=== PATIENT | female | born 2000 | race Caucasian/White ===

== ENCOUNTER 2023-09-10 10:20 | Emergency (ER) | payer BC, SELFPAY ==
[2023-09-10 10:55] VITALS: BP 107/69
[2023-09-10] MEDS: TYLENOL 1000 MG PO (13:11)
--- NOTE | 2023-09-10 14:07 | ED.GENMED ---
History of Present Illness
General
Chief Complaint: Headache
Source: patient and family
Exam Limitations: none
Time Seen by Provider: 09/10/23 12:27
Nursing documentation reviewed up to this point in time: agreed with
Travel History
Have you had any contact with someone who has COVID-19?: No
Do you have any symptoms of coronavirus? Fever > 100 degrees, chills, cough, shortness of breath, sore throat, loss of taste or smell, muscle aches, or headache?: No
History of Present Illness
History of Present Illness:
The patient is a pleasant 23-year-old female with past medical history of POTS syndrome and intermittent chronic dizziness, who comes in with complaints of gradual onset of a headache that started 2 days ago. Patient reports that the headache
starts at the base of the right side of her head and radiates towards her right forehead. She denies fever and vomiting. She reports is a throbbing sensation and a moderate pressure. Patient reports that she was primarily concerned and wants to
make sure everything is okay because she reports she has had 'strange issues' happen to her such as a history of a blood clot. Patient reports she takes Lovenox. She denies vision changes, weakness and numbness. She denies rash. Patient reports
she took Tylenol earlier today and her headache is now improved.
Past History
Past History
ED Past Medical History: Psychiatric (Anxiety, Depression) and Other ( IBS, ovarian cyst, colitis, DVT, C-diff, PCOS, POTS, PE, Migraines, )
ED Past Surgical History: Gynecological (Hyemectomy) and Orthopedic (Left knee meniscus and MPFO)
Social History
Tobacco: Non-smoker
Alcohol: None
Drug: None
Personal: Other
Living: with roommate
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
Family History
Family History: Other
Review of Systems
Review of Systems
Allergies reviewed?: Yes
All Other Systems: ROS reviewed and negative except as documented in HPI and ROS
Constitutional: Reports no symptoms
EENT: Reports no symptoms
Respiratory: Reports no symptoms
Cardiac: Reports no symptoms
ABD/GI: Reports no symptoms
: Reports no symptoms
Musculoskeletal: Reports no symptoms
Skin: Reports no symptoms
Neurological: Reports dizzy and headache
Endocrine: Reports no symptoms
Hematologic/Lymphatic: Reports no symptoms
Psychiatric: Reports no symptoms
Phy Exam
Physical Exam
Physical Exam:
Physical Exam
General: no apparent distress, not acutely ill
Neck: supple. no meningeal signs. normal psoterior pharynx
Heart: s1/s2 regular rate and rhythm, no murmur. equal radial pulses.
Lungs: no acute respiratory distress. clear bilaterally
Abdomen: normal bowel sounds. not tender. no CVAT
Neuro: alert and orientedx3. no focal neurological deficits. Extraocular muscles intact. Normal finger-nose. 5 out of 5 strength in all extremities. Cranial nerves equal and symmetric bilaterally.
Skin: no rash
Psychiatric: well kept. interactive and cooperative
Extremities: no edema. no calf tenderness. negative homans. good distal pulses
Course
Orders/Labs/Results
Orders:
Orders
09/10/23 13:06
CT Head W/o Iv Contrast Urgent
Comment:
Reason For Exam: headache, dizziness
09/10/23 13:07
Acetaminophen [Tylenol] 1,000 mg PO NOW STA
Vital Signs
Initial and Last Documented VS:
Initial Vital Signs
Temp Pulse Resp BP Pulse Ox
98.1 F 79 18 107/69 99
09/10/23 10:55 09/10/23 10:55 09/10/23 10:55 09/10/23 10:55 09/10/23 10:55
Last Documented Vital Signs
Temp Pulse Resp BP Pulse Ox
98.1 F 79 18 107/69 99
09/10/23 10:55 09/10/23 10:55 09/10/23 10:55 09/10/23 10:55 09/10/23 10:55
MDM/Problems Addressed
Differential Diagnosis Includes:
Acute migraine, tension headache, acute sinusitis, subarachnoid hemorrhage
MDM/Problems Addressed:
Patient presents with acute headache
Chronic conditions affecting care:
Given patient has a history of being on blood thinners, she could be at increased risk of intracranial hemorrhage
Acute Exacerbation and/or Progression of Chronic Illness:
Patient may have acute exacerbation of a chronic migraine
*Radiology
Radiology exam reviewed: radiology read reviewed
*Pulse Oximetry
Patient hypoxic: no
*EKG
Interpreted by ED Provider?: NA
*Lot Associate Interpretation
Rate: Lot Associate- N/A
*Critical Care Note
Total Time (30-74mins, 75-104mins- exclusive of procedures): Not Applicable
Data Reviewed
Source: patient and family
Prescriptions/Medications Considered But Not Given:
Patient given Tylenol for pain
Update Note
Update Note:
2:30 PM patient reports she feels better with the Tylenol. She reports her headache is minimal. She appears nontoxic, is smiling and conversational. Clinically there is no sign of meningitis or subarachnoid hemorrhage. Decision made to do a CAT
scan based on the fact that patient is on blood thinners and she was particularly concerned. However, she does admit that she has chronic intermittent dizziness and headaches.
ED Attending Note
-
Portions of this chart may have been created with voice recognition software.� Occasional wrong word or��sound alike� substitutions may have occurred due to the inherent limitations of voice recognition software.
Discharge Plan
Departure
Patient Disposition: Home (Routine Discharge)
Date of Disposition: 09/10/23
Time of Disposition: 14:29
Patient with high blood pressure during this ER visit?: No
Condition: Good
Covid-19: Not Applicable
Discharge Problem:
Headache
Instructions: Headache, Adult (DC)
Prescriptions:
No Action
ondansetron HCl 4 mg Tablet
4 mg PO Q6H PRN (Reason: nausea)
metoprolol succinate 25 mg Tablet Extended Release 24 Hr
25 mg PO DAILY
sertraline [Zoloft] 50 mg Tablet
50 mg PO DAILY
acetaminophen 325 mg Tablet
650 mg PO Q4HPRN PRN (Reason: mild pain/SUN/temp> 100.4F) Qty: 0 0RF
enoxaparin [Lovenox] 80 mg/0.8 mL Syringe
80 mg SC Q12H
metoprolol succinate 50 mg tablet extended release 24 hr
50 mg PO DAILY 14 Days Qty: 14 0RF
Referrals:
Dinah Wolf CRNP [Family Provider] -
Activity Restrictions/Additional Instructions:
Please follow-up with your neurologist at [place].
Interventions
Interventions:
*General Assessment Last Done: 09/10/23 10:55
*ED COVID-19 Vaccine History Last Done: 09/10/23 10:55
ED- Neurological Assessment Last Done: 09/10/23 14:08
== END 2023-09-10 14:49 | disposition home or self-care (01) ==
LOC: EMR 10:20
PROVIDERS: EMERGENCY PHYSICIAN Emergency Medicine; FAMILY PHYSICIAN Nurse Practitioner
DX: R51.9 Headache, unspecified (principal); G90.A Postural orthostatic tachycardia syndrome [POTS]; F41.9 Anxiety disorder, unspecified; F32.A Depression, unspecified; K58.9 Irritable bowel syndrome, unspecified; E28.2 Polycystic ovarian syndrome; Z79.01 Long term (current) use of anticoagulants; Z86.718 Personal history of other venous thrombosis and embolism
CPT/HCPCS: 99284; 70450

== ENCOUNTER → 2023-11-07 10:36 | Outpatient (REF) | payer BC, SELFPAY ==
[2023-11-07 11:36] LABS: % Basophils 0.5 % (0-2); % Eosinophils 0.3 % (0-6); % Immature Granulocytes 0.7 % (0-0.5); % Lymphocytes 37.9 % (20.5-51.1); % Monocytes 5.4 % (1.7-9.3); % Neutrophils 55.2 % (42.2-75.2); Absolute Basophils 0.1 10^3/uL (0-0.2); Absolute Immature Granulocytes 0.1 10^3/uL (0-0.05); Absolute Lymphocytes 3.5 10^3/uL (1.2-3.4); Absolute Monocytes 0.5 10^3/uL (0.1-0.6); Absolute Neutrophils 5.1 10^3/uL (1.4-6.5); Hematocrit 40.7 % (37.0-47.0); Hemoglobin 13.5 g/dL (12.0-16.0); Mean Corp Hgb Conc. 33.2 g/dL (33.0-37.0); Mean Corpuscular Hgb 29.5 pg (27.0-31.0); Mean Corpuscular Volume 88.9 fL (81.0-99.0); Mean Platelet Volume 9.5 fL (7.4-10.4); Nucleated Red Blood Cells % 0 %; Platelet Count 350 10^3/uL (130-400); Red Blood Cell Count 4.58 10^6/uL (4.20-5.40); Red Cell Dist. Width 12.8 % (11.5-14.5); White Blood Cell Count 9.2 10^3/uL (4.8-10.8)
[2023-11-07 11:50] LABS: D-Dimer 0.32 ug/mlFEU (0.00-0.50)
[2023-11-07 12:07] LABS: Troponin I < 0.012 ng/ml
[2023-11-07 12:58] LABS: Ferritin 39.2 ng/ml (6.24-137)
[2023-11-07 13:41] LABS: Iron 82 ug/dl (37-170)
[2023-11-07 13:51] LABS: Percent Saturation 21 % (20-50); Total Iron Binding Capacity 378 ug/dl (265-497)
== END ==
LOC: RCS 10:36
PROVIDERS: ATTENDING PHYSICIAN Internal Medicine Hematology & Oncology; FAMILY PHYSICIAN Family Medicine
DX: I82.4Z2 Acute embolism and thrombosis of unspecified deep veins of left distal lower extremity (principal)
CPT/HCPCS: 36415; 82728; 83540; 83550; 84484; 85025; 85379; 93005

== ENCOUNTER → 2023-11-14 10:57 | Outpatient (REF) | payer BC, SELFPAY | LOC: HWRAD 10:57 | PROVIDERS: ATTENDING PHYSICIAN Nurse Practitioner | DX: R19.00 Intra-abdominal and pelvic swelling, mass and lump, unspecified site (principal) | CPT/HCPCS: 76830; 76856 ==

== ENCOUNTER 2023-11-21 11:20 | Emergency (ER) | payer BC, SELFPAY ==
[2023-11-21 11:29] VITALS: BP 133/81
[2023-11-21 12:21] VITALS: BMI 28.1
[2023-11-21 12:35] VITALS: BP 121/74
[2023-11-21 12:56] LABS: % Basophils 0.4 % (0-2); % Eosinophils 0.1 % (0-6); % Immature Granulocytes 0.5 % (0-0.5); % Lymphocytes 17.8 % (20.5-51.1); % Monocytes 4.5 % (1.7-9.3); % Neutrophils 76.7 % (42.2-75.2); Absolute Immature Granulocytes 0.1 10^3/uL (0-0.05); Absolute Lymphocytes 1.7 10^3/uL (1.2-3.4); Absolute Monocytes 0.4 10^3/uL (0.1-0.6); Absolute Neutrophils 7.1 10^3/uL (1.4-6.5); Hemoglobin 13.7 g/dL (12.0-16.0); Mean Corp Hgb Conc. 33.4 g/dL (33.0-37.0); Mean Corpuscular Hgb 29.8 pg (27.0-31.0); Mean Corpuscular Volume 89.3 fL (81.0-99.0); Mean Platelet Volume 9.6 fL (7.4-10.4); Nucleated Red Blood Cells % 0 %; Platelet Count 363 10^3/uL (130-400); Red Blood Cell Count 4.59 10^6/uL (4.20-5.40); Red Cell Dist. Width 12.8 % (11.5-14.5); White Blood Cell Count 9.3 10^3/uL (4.8-10.8)
[2023-11-21 13:00] VITALS: BP 115/65
[2023-11-21 13:11] LABS: ALT (SGPT) 32 U/L (0-35); AST (SGOT) 22 U/L (14-36); Albumin 4.7 g/dl (3.5-5.0); Alkaline Phosphatase 64 U/L (38-126); Blood Urea Nitrogen 11 mg/dl (7-17); Calcium 9.8 mg/dl (8.4-10.2); Carbon Dioxide 23 mmol/L (22-30); Chloride 106 mmol/L (98-107); Estimated Creatinine Clearance > 125 ml/min; Glucose 92 mg/dl (70-99); Potassium 4.2 mmol/L (3.5-5.1); Sodium 136 mmol/L (135-145); Total Bilirubin 0.4 mg/dl (0.2-1.3); eGFR > 60.00
[2023-11-21] MEDS: NSS 1000 IV (13:23)
[2023-11-21 13:56] LABS: HCG, Serum Qualitative Screen Negative
[2023-11-21 14:00] VITALS: BP 117/67
[2023-11-21 14:03] LABS: Magnesium 1.8 mg/dl (1.6-2.3)
[2023-11-21 14:33] LABS: TSH Reflex To Free T4 1.25 uIU/ml (0.47-4.68)
[2023-11-21 15:00] VITALS: BP 111/70
--- NOTE | 2023-11-21 15:54 | ED.GENMED ---
History of Present Illness
General
Chief Complaint: Dizziness
Source: patient
Exam Limitations: none
Time Seen by Provider: 11/21/23 12:18
Nursing documentation reviewed up to this point in time: agreed with
Travel History
Have you had any contact with someone who has COVID-19?: No
Do you have any symptoms of coronavirus? Fever > 100 degrees, chills, cough, shortness of breath, sore throat, loss of taste or smell, muscle aches, or headache?: No
History of Present Illness
History of Present Illness:
Patient presents to ED for evaluation secondary to continual dizziness, feeling 'not well', nausea, and decreased appetite over the past 3 days. Of note, patient is currently being treated for pulmonary embolism discovered in May 2023. Patient
has been Lovenox injection at home, but during evaluation with her bistro attendant last week, decision was made to switch patient to Eliquis. Patient states that 1 day after, after taking 2 doses, patient started to feel aforementioned symptoms. In
addition, her multinational cycle started also on the same day. Denies fever or chills. Denies coughing. Denies chest pain. Denies shortness of breath. Denies abdominal pain. Denies diarrhea. Patient does also report that she had taken
Eliquis in the past, and experienced similar but milder symptoms at that time.
Past History
Past History
ED Past Medical History: Psychiatric (Anxiety, Depression) and Other ( IBS, ovarian cyst, colitis, DVT, C-diff, PCOS, POTS, PE, Migraines, )
ED Past Surgical History: Gynecological (Hyemectomy) and Orthopedic (Left knee meniscus and MPFO)
Social History
Tobacco: Non-smoker
Alcohol: None
Drug: None
Personal: Other
Living: with roommate
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
Family History
Family History: Other
Review of Systems
Review of Systems
Allergies reviewed?: Yes
All Other Systems: ROS reviewed and negative except as documented in HPI and ROS
Constitutional: Reports no symptoms
EENT: Reports no symptoms
Respiratory: Reports no symptoms
Cardiac: Reports no symptoms
ABD/GI: Reports nausea and vomiting
: Reports no symptoms
Musculoskeletal: Reports no symptoms
Skin: Reports no symptoms
Neurological: Reports dizzy and weakness
Phy Exam
Physical Exam
Physical Exam:
Physical Exam
General: mild distress, not acutely ill. afebrile.
Head: nc/at. eomi
Neck: supple. no meningeal signs.
Heart: s1/s2 regular rate and rhythm, no murmur. equal radial pulses.
Lungs: no acute respiratory distress. clear bilaterally
Abdomen: normal bowel sounds. not tender.
Neuro: alert and oriented. no focal neurological deficits
Skin: no rash
Psychiatric: well kept. interactive and cooperative
Extremities: no edema. no calf tenderness.
Course
Orders/Labs/Results
Orders:
Orders
11/21/23 11:22
EKG [Electrocardiogram (*1)] Urgent
Reason for Study: Chest Pain
EKG- Treatment ONCE
11/21/23 12:48
Complete Blood Count/With Diff Urgent
Comprehensive Metabolic Panel Urgent
HCG, Serum Qualitative Screen Urgent
Comment: ADD ON
Iron Urgent
Magnesium Urgent
Comment: ADD ON
TSH Reflex To Free T4 Urgent
Comment: DDED ON
11/21/23 13:18
Add On- LAB Urgent
Tests Added?: magnesium, serum b-hcg qualitative, TSH to reflex free T4
11/21/23 13:19
0.9% Sodium Chloride 1000 ml [Nss] 1,000 ml IV BOLUS
11/21/23 15:40
Add On- LAB Urgent
Tests Added?: iron
Abnormal Lab Results
11/21/23
12:48
Abs Immat Gran (auto) 0.1 H 10^3/uL
(0-0.05)
Absolute Neuts (auto) 7.1 H 10^3/uL
(1.4-6.5)
Neutrophils % 76.7 H %
(42.2-75.2)
Lymphocytes % 17.8 L %
(20.5-51.1)
11/21/23 12:48
11/21/23 12:48
Vital Signs
Initial and Last Documented VS:
Initial Vital Signs
Temp Pulse Resp BP Pulse Ox
98.9 F 83 16 133/81 100
11/21/23 11:29 11/21/23 11:29 11/21/23 11:29 11/21/23 11:29 11/21/23 11:29
Last Documented Vital Signs
Temp Pulse Resp BP Pulse Ox
98.9 F 76 17 114/64 100
11/21/23 11:29 11/21/23 16:00 11/21/23 16:00 11/21/23 16:00 11/21/23 11:29
MDM/Problems Addressed
MDM/Problems Addressed:
Blood work reviewed: No acute findings.
History and exam consistent with likely medication reaction, compounded by ongoing menstrual cycle as well as dehydration. Otherwise, patient is afebrile, hemodynamically stable, and nontoxic-appearing.
Discussed with on-call bistro attendant, Dr. Chen. Decision made to switch patient back to Lovenox injection. Pt is to call hematology office with an update in 2-3 days.
Patient and mother expressed understanding at time of discharge.
*Critical Care Note
Total Time (30-74mins, 75-104mins- exclusive of procedures): Not Applicable
ED Attending Note
-
Portions of this chart may have been created with voice recognition software.� Occasional wrong word or��sound alike� substitutions may have occurred due to the inherent limitations of voice recognition software.
Discharge Plan
Departure
Patient Disposition: Home (Routine Discharge)
Date of Disposition: 11/21/23
Time of Disposition: 15:55
Patient with high blood pressure during this ER visit?: Yes
Condition: Good
Discharge Problem:
Dizziness, Medication adverse effect
Instructions: Dizziness
Prescriptions:
New
ondansetron 4 mg Tablet,Disintegrating
4 mg PO TIDPRN PRN (Reason: nausea/vomiting) Qty: 12 0RF
No Action
ondansetron HCl 4 mg Tablet
4 mg PO Q6H PRN (Reason: nausea)
metoprolol succinate 25 mg Tablet Extended Release 24 Hr
25 mg PO DAILY
sertraline [Zoloft] 50 mg Tablet
50 mg PO DAILY
acetaminophen 325 mg Tablet
650 mg PO Q4HPRN PRN (Reason: mild pain/SUN/temp> 100.4F) Qty: 0 0RF
enoxaparin [Lovenox] 80 mg/0.8 mL Syringe
80 mg SC Q12H
metoprolol succinate 50 mg tablet extended release 24 hr
50 mg PO DAILY 14 Days Qty: 14 0RF
Referrals:
Jennifer Jackson MD [Family Provider] -
Stand Alone Forms: Return to Work
Activity Restrictions/Additional Instructions:
As discussed, please discontinue Eliquis and restart Lovenox injection at home. Please contact your bistro attendant in 24 to 48 hours with your progress. Your prescriptions been sent electronically [facility] pharmacy in [place].
Interventions
Interventions:
*Risk Screen - Suicide Last Done: 11/21/23 11:29
*General Assessment Last Done: 11/21/23 12:21
*Neglect/Abuse Screening Last Done: 11/21/23 11:29
ED- Fall Risk Assessment Last Done: 11/21/23 12:21
*ED COVID-19 Vaccine History Last Done: 11/21/23 11:29
*Nursing Disposition Last Done: 11/21/23 16:09
ED- Neurological Assessment Last Done: 11/21/23 12:21
ED- Cardiac Assessment Last Done: 11/21/23 12:21
ED Swallowing Screen Last Done: 11/21/23 12:31
Discharge Date and Time
Discharge Date/Time: 11/21/23 16:22
Print Language: MACANESE
[2023-11-21 16:00] VITALS: BP 114/64
[2023-11-21 17:39] LABS: Iron 83 ug/dl (37-170)
== END 2023-11-21 16:22 | disposition home or self-care (01) ==
LOC: EMR 11:20
PROVIDERS: EMERGENCY PHYSICIAN Emergency Medicine; FAMILY PHYSICIAN Family Medicine
DX: R42 Dizziness and giddiness (principal); R11.2 Nausea with vomiting, unspecified; R00.2 Palpitations; T45.515A Adverse effect of anticoagulants, initial encounter; F41.9 Anxiety disorder, unspecified; F32.A Depression, unspecified; K58.9 Irritable bowel syndrome, unspecified; G90.A Postural orthostatic tachycardia syndrome [POTS]; K52.9 Noninfective gastroenteritis and colitis, unspecified; N83.209 Unspecified ovarian cyst, unspecified side; Z86.711 Personal history of pulmonary embolism
CPT/HCPCS: 99284; 96360; 80053; 83540; 83735; 84443; 84703; 85025; 93005

== ENCOUNTER → 2023-11-29 13:05 | Outpatient (REF) | payer BC, SELFPAY ==
[2023-11-29 14:43] LABS: Urine Albumin Negative (Neg - Trace); Urine Bilirubin Negative (Negative); Urine Character Clear (Clear); Urine Color Straw; Urine Glucose Negative (Negative); Urine Ketone Negative (Negative); Urine Leukocyte Negative (Negative); Urine Nitrite Negative (Negative); Urine Occult Blood Negative (Negative); Urine Urobilinogen Negative (Neg - 1+)
== END ==
LOC: RAD 13:05
PROVIDERS: ATTENDING PHYSICIAN Family Medicine
DX: R10.2 Pelvic and perineal pain (principal)
CPT/HCPCS: 76700; 76830; 76856; 81003

== ENCOUNTER 2023-12-11 13:53 | Emergency (ER) | payer BC, SELFPAY ==
[2023-12-11 13:55] VITALS: BP 146/99
[2023-12-11 14:15] LABS: % Basophils 0.3 % (0-2); % Eosinophils 0.7 % (0-6); % Immature Granulocytes 0.7 % (0-0.5); % Lymphocytes 47.4 % (20.5-51.1); % Neutrophils 39.9 % (42.2-75.2); Absolute Lymphocytes 2.8 10^3/uL (1.2-3.4); Absolute Monocytes 0.7 10^3/uL (0.1-0.6); Absolute Neutrophils 2.4 10^3/uL (1.4-6.5); Hematocrit 38.5 % (37.0-47.0); Hemoglobin 13.3 g/dL (12.0-16.0); Mean Corp Hgb Conc. 34.5 g/dL (33.0-37.0); Mean Corpuscular Hgb 30.1 pg (27.0-31.0); Mean Corpuscular Volume 87.1 fL (81.0-99.0); Mean Platelet Volume 9.2 fL (7.4-10.4); Nucleated Red Blood Cells % 0 %; Platelet Count 305 10^3/uL (130-400); Red Blood Cell Count 4.42 10^6/uL (4.20-5.40); Red Cell Dist. Width 12.8 % (11.5-14.5)
[2023-12-11 14:28] LABS: D-Dimer 0.36 ug/mlFEU (0.00-0.50)
[2023-12-11 14:36] LABS: HCG, Serum Qualitative Screen Negative
[2023-12-11 14:47] LABS: ALT (SGPT) 35 U/L (0-35); AST (SGOT) 25 U/L (14-36); Albumin 4.6 g/dl (3.5-5.0); Alkaline Phosphatase 64 U/L (38-126); Blood Urea Nitrogen 16 mg/dl (7-17); Calcium 9.7 mg/dl (8.4-10.2); Carbon Dioxide 26 mmol/L (22-30); Chloride 106 mmol/L (98-107); Glucose 88 mg/dl (70-99); Potassium 4.6 mmol/L (3.5-5.1); Sodium 137 mmol/L (135-145); Total Bilirubin 0.4 mg/dl (0.2-1.3); Total Protein 8.1 g/dl (6.3-8.2); eGFR > 60.00
[2023-12-11 16:43] VITALS: BP 122/73
--- NOTE | 2023-12-11 17:03 | ED.GENMED ---
History of Present Illness
General
Chief Complaint: Breathing Problem
Source: patient
Exam Limitations: none
Time Seen by Provider: 12/11/23 16:02
Nursing documentation reviewed up to this point in time: agreed with
Travel History
Have you had any contact with someone who has COVID-19?: No
Do you have any symptoms of coronavirus? Fever > 100 degrees, chills, cough, shortness of breath, sore throat, loss of taste or smell, muscle aches, or headache?: No
History of Present Illness
History of Present Illness:
Patient with history of pulm embolism, currently on lifelong treatment via Lovenox subcu injection, presents to ED secondary to recurrent left armpit pain x 2 days, moving across her chest, similar to when she was initially diagnosed with pulmonary
embolism. Of note, patient states that she missed 1 single dose of Lovenox injection, night prior to onset of her symptoms. Denies shortness of breath. Denies nausea vomiting. Denies dizziness. Denies diaphoresis. Patient has already resumed
her normal Lovenox injection. Denies leg pain or swelling. Denies back pain.
Past History
Past History
ED Past Medical History: Psychiatric (Anxiety, Depression) and Other ( IBS, ovarian cyst, colitis, DVT, C-diff, PCOS, POTS, PE, Migraines, )
ED Past Surgical History: Gynecological (Hyemectomy) and Orthopedic (Left knee meniscus and MPFO)
Social History
Tobacco: Non-smoker
Alcohol: None
Drug: None
Personal: Other
Living: with roommate
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
Family History
Family History: Other
Review of Systems
Review of Systems
Allergies reviewed?: Yes
All Other Systems: ROS reviewed and negative except as documented in HPI and ROS
Constitutional: Reports no symptoms
Respiratory: Reports no symptoms
Cardiac: Reports chest pain
ABD/GI: Reports no symptoms
: Reports no symptoms
Musculoskeletal: Reports other (arm pit pain)
Skin: Reports no symptoms
Neurological: Reports no symptoms
Phy Exam
Physical Exam
Physical Exam:
Physical Exam
General: no apparent distress, not acutely ill. afebrile
Head: nc/at. eomi
Neck: supple. no meningeal signs.
Heart: s1/s2 regular rate and rhythm, no murmur. equal radial pulses.
Lungs: no acute respiratory distress. clear bilaterally
Abdomen: normal bowel sounds. not tender.
Neuro: alert and oriented. no focal neurological deficits
Skin: no rash
Psychiatric: well kept. interactive and cooperative
Extremities: no edema. no calf tenderness.
Course
Orders/Labs/Results
Orders:
Orders
12/11/23 13:58
Electrocardiogram (*1) Urgent
Reason for Study: Shortness of Breath
12/11/23 14:00
EKG- Treatment ONCE
Test Result ONCE
12/11/23 14:10
Complete Blood Count/With Diff Urgent
Comprehensive Metabolic Panel Urgent
D-Dimer Urgent
HCG, Serum Qualitative Screen Urgent
Abnormal Lab Results
12/11/23
14:10
Absolute Monos (auto) 0.7 H 10^3/uL
(0.1-0.6)
Immature Gran % 0.7 H %
(0-0.5)
Neutrophils % 39.9 L %
(42.2-75.2)
Monocytes % 11.0 H %
(1.7-9.3)
12/11/23 14:10
12/11/23 14:10
Vital Signs
Initial and Last Documented VS:
Initial Vital Signs
Temp Pulse Resp BP Pulse Ox
98.4 F 87 18 146/99 100
12/11/23 13:55 12/11/23 13:55 12/11/23 13:55 12/11/23 13:55 12/11/23 13:55
Last Documented Vital Signs
Temp Pulse Resp BP Pulse Ox
98.4 F 84 18 122/73 99
12/11/23 13:55 12/11/23 16:43 12/11/23 16:43 12/11/23 16:43 12/11/23 16:43
MDM/Problems Addressed
MDM/Problems Addressed:
Blood work reviewed and discussed with patient, including D-dimer. Patient otherwise afebrile, hemodynamic stable, and without any respiratory distress, nor any acute distress. Patient with likely nonspecific pain, likely musculoskeletal, as
patient has only missed 1 dose and has already resumed her Lovenox injection. Discussed with patient regarding differential diagnosis, including potential although unlikely PE. However, in light of the fact the patient is hemodynamically stable
without any acute distress, and she is already taking Lovenox injection, patient does understand that there is no further studies warranted at this time. Advised PCP/hematology follow-up as an outpatient, if her symptoms persist. Patient expresses
understanding at time of discharge.
*Critical Care Note
Total Time (30-74mins, 75-104mins- exclusive of procedures): Not Applicable
ED Attending Note
-
Portions of this chart may have been created with voice recognition software.� Occasional wrong word or��sound alike� substitutions may have occurred due to the inherent limitations of voice recognition software.
Discharge Plan
Departure
Patient Disposition: Home (Routine Discharge)
Date of Disposition: 12/11/23
Time of Disposition: 17:03
Patient with high blood pressure during this ER visit?: Yes
Condition: Good
Discharge Problem:
Musculoskeletal pain
Instructions: Musculoskeletal Pain
Prescriptions:
No Action
ondansetron HCl 4 mg Tablet
4 mg PO Q6H PRN (Reason: nausea)
metoprolol succinate 25 mg Tablet Extended Release 24 Hr
25 mg PO DAILY
sertraline [Zoloft] 50 mg Tablet
50 mg PO DAILY
acetaminophen 325 mg Tablet
650 mg PO Q4HPRN PRN (Reason: mild pain/SUN/temp> 100.4F) Qty: 0 0RF
enoxaparin [Lovenox] 80 mg/0.8 mL Syringe
80 mg SC Q12H
metoprolol succinate 50 mg tablet extended release 24 hr
50 mg PO DAILY 14 Days Qty: 14 0RF
ondansetron 4 mg Tablet,Disintegrating
4 mg PO TIDPRN PRN (Reason: nausea/vomiting) Qty: 12 0RF
Referrals:
Kamala Berman CRNP [Family Provider] -
Stand Alone Forms: Return to Work
Activity Restrictions/Additional Instructions:
As discussed, please follow-up with your primary care physician with any further concerns.
Interventions
Interventions:
*Risk Screen - Suicide Last Done: 12/11/23 13:55
*General Assessment Last Done: 12/11/23 13:55
*Neglect/Abuse Screening Last Done: 12/11/23 13:55
ED- Fall Risk Assessment Last Done: 12/11/23 16:51
*ED COVID-19 Vaccine History Last Done: 12/11/23 16:51
*Nursing Disposition Last Done: 12/11/23 17:06
ED- Cardiac Assessment Last Done: 12/11/23 16:51
ED- Pulmonary Assessment Last Done: 12/11/23 16:51
Discharge Date and Time
Discharge Date/Time: 12/11/23 17:06
Print Language: [email or web address]
== END 2023-12-11 17:06 | disposition home or self-care (01) ==
LOC: EMR 13:53
PROVIDERS: Emergency Medicine; EMERGENCY PHYSICIAN Emergency Medicine; FAMILY PHYSICIAN Family Medicine
DX: M79.18 Myalgia, other site (principal); R03.0 Elevated blood-pressure reading, without diagnosis of hypertension; Z86.711 Personal history of pulmonary embolism
CPT/HCPCS: 99284; 80053; 84703; 85025; 85379; 93005

== ENCOUNTER 2023-12-22 22:23 | Emergency (ER) | payer BC, SELFPAY ==
[2023-12-22 22:35] VITALS: BP 129/82
[2023-12-22 22:54] LABS: % Basophils 0.3 % (0-2); % Eosinophils 1.1 % (0-6); % Immature Granulocytes 0.6 % (0-0.5); % Lymphocytes 54.2 % (20.5-51.1); % Monocytes 7.1 % (1.7-9.3); % Neutrophils 36.7 % (42.2-75.2); Absolute Eosinophils 0.1 10^3/uL (0-0.7); Absolute Immature Granulocytes 0.1 10^3/uL (0-0.05); Absolute Lymphocytes 4.7 10^3/uL (1.2-3.4); Absolute Monocytes 0.6 10^3/uL (0.1-0.6); Absolute Neutrophils 3.2 10^3/uL (1.4-6.5); Hematocrit 39.7 % (37.0-47.0); Mean Corp Hgb Conc. 35.3 g/dL (33.0-37.0); Mean Corpuscular Hgb 30.4 pg (27.0-31.0); Mean Corpuscular Volume 86.3 fL (81.0-99.0); Mean Platelet Volume 9.1 fL (7.4-10.4); Nucleated Red Blood Cells % 0 %; Platelet Count 351 10^3/uL (130-400); Red Cell Dist. Width 12.9 % (11.5-14.5); White Blood Cell Count 8.7 10^3/uL (4.8-10.8)
[2023-12-22 23:17] LABS: ALT (SGPT) 59 U/L (0-35); AST (SGOT) 41 U/L (14-36); Albumin 4.8 g/dl (3.5-5.0); Alkaline Phosphatase 67 U/L (38-126); Blood Urea Nitrogen 16 mg/dl (7-17); Calcium 9.8 mg/dl (8.4-10.2); Carbon Dioxide 27 mmol/L (22-30); Chloride 104 mmol/L (98-107); Glucose 96 mg/dl (70-99); HCG, Serum Qualitative Screen Negative; Potassium 4.3 mmol/L (3.5-5.1); Sodium 135 mmol/L (135-145); Total Bilirubin 0.3 mg/dl (0.2-1.3); Total Protein 8.5 g/dl (6.3-8.2); eGFR > 60.00
--- NOTE | 2023-12-22 23:56 | ED.GENMED ---
History of Present Illness
General
Chief Complaint: Abdominal Pain
Source: patient
Exam Limitations: none
Time Seen by Provider: 12/22/23 23:17
Travel History
Have you had any contact with someone who has COVID-19?: No
Do you have any symptoms of coronavirus? Fever > 100 degrees, chills, cough, shortness of breath, sore throat, loss of taste or smell, muscle aches, or headache?: No
History of Present Illness
History of Present Illness:
This is a 23 year old female that comes in with c/o lower abd pain. States that she awoke this morning with left lower abd pain. States that this radiates to her back. States that she is on Lovanox and has been taking Tylenol for the pain but this
did not help. States that she tried using a heating pad and it would help for about 30-45min and then the pain would come back. States that she was nauseated. Denies any fever, chills, chest pain, SOB, vomiting, diarrhea, headache, dizziness,
urinary burning.
Past History
Past History
ED Past Medical History: Psychiatric (Anxiety, Depression) and Other ( IBS, ovarian cyst, colitis, DVT, C-diff, PCOS, POTS, PE, Migraines, )
ED Past Surgical History: Gynecological (Hyemectomy) and Orthopedic (Left knee meniscus and MPFO)
Social History
Tobacco: Non-smoker
Alcohol: None
Drug: None
Personal: Single
Living: with roommate
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
Family History
Family History: Other
Review of Systems
Review of Systems
All Other Systems: ROS reviewed and negative except as documented in HPI and ROS
Constitutional: Reports no symptoms; Denies fever or chills
EENT: Reports no symptoms
Respiratory: Reports no symptoms; Denies cough or trouble breathing
Cardiac: Reports no symptoms; Denies chest pain
ABD/GI: Reports abdominal pain (Left lower abd) and nausea; Denies vomiting or diarrhea
: Reports no symptoms; Denies dysuria, frequency or urgency
Musculoskeletal: Reports no symptoms
Skin: Reports no symptoms
Neurological: Reports no symptoms; Denies dizzy or headache
Psychiatric: Reports no symptoms
Phy Exam
General Physical Exam
General Presentation: well appearing and no apparent distress
General age: appears stated age
General Skin: warm and dry
General Habitus: normal
General Mental: alert
General Hydration: appears well hydrated
ENT Exam
ENT Exam: TM's normal, pharynx normal and neck supple
Eye Exam
Eye Exam: EOMI
Cardiovascular Exam
Cardiovascular Exam: regular rate/rhythm, no edema, no murmur and normal peripheral pulses
Pulmonary Exam
Pulmonary Exam: lungs clear, no respiratory distress, no rales, chest non tender, no crackles, no rhonchi, no wheezing and no cough
Gastrointestinal Exam
Gastrointestinal Exam: normal bowel sounds, soft, no organomegaly, no pulsatile mass, non distended and tender (Slight LLQ tenderness with palpation)
Musculoskeletal Exam
Musculoskeletal Exam: full ROM and no edema
Skin Exam
Skin Exam: normal color, warm/dry, no rash and no petechia
Psychiatric Exam
Psychiatric Exam: normal mood/affect
Course
Orders/Labs/Results
Orders:
Orders
12/22/23 22:40
Test Result ONCE
12/22/23 22:47
Complete Blood Count/With Diff Urgent
Comprehensive Metabolic Panel Urgent
HCG, Serum Qualitative Screen Urgent
12/22/23 23:55
0.9% Sodium Chloride 1000 ml [Nss] 1,000 ml IV BOLUS
12/22/23 23:59
Urinalysis Reflex To Culture Urgent
Date Specimen was Collected: 12/23/23
Time Specimen was Collected: 02:05
12/23/23 23:55
US Pelvis Only (non-obstetric) Urgent
Reason For Exam: Left lower abd pain
Abnormal Lab Results
12/22/23
22:47
Abs Immat Gran (auto) 0.1 H 10^3/uL
(0-0.05)
Absolute Lymphs (auto) 4.7 H 10^3/uL
(1.2-3.4)
Immature Gran % 0.6 H %
(0-0.5)
Neutrophils % 36.7 L %
(42.2-75.2)
Lymphocytes % 54.2 H %
(20.5-51.1)
AST 41 H U/L
(14-36)
ALT 59 H U/L
(0-35)
Total Protein 8.5 H g/dl
(6.3-8.2)
12/22/23 22:47
12/22/23 22:47
AST/ALT slightly elevated. Total protein slightly elevated. HCG negative
Vital Signs
Initial and Last Documented VS:
Initial Vital Signs
Temp Pulse Resp BP Pulse Ox
97.9 F 68 18 129/82 98
12/22/23 22:35 12/22/23 22:35 12/22/23 22:35 12/22/23 22:35 12/22/23 22:35
Last Documented Vital Signs
Temp Pulse Resp BP Pulse Ox
97.9 F 68 18 129/82 98
12/22/23 22:35 12/22/23 22:35 12/22/23 22:35 12/22/23 22:35 12/22/23 22:35
MDM/Problems Addressed
Differential Diagnosis Includes:
Ovarian cyst Renal caclulus
MDM/Problems Addressed:
This is a 23 year old female that comes in with c/o left lower abd pain that started this morning. States that she tried Tylenol for the pain and this did not help. State that a heating pad helped for about 30-45 min.
Will get US and check labs.
Back into see patient. Explained that her US is negative for an ovarian cyst and there is no free fluid in the pelvis. Urine is negative for infection or blood. Offered to get at CT scan but patient does not feel that this is GI. States that she
will wait and return with increased pain. Will discharge home
Chronic conditions affecting care:
PCOS
Acute Exacerbation and/or Progression of Chronic Illness:
PCOS
*Radiology
Radiology exam reviewed: radiology read reviewed (US night hawk- Anteverted uterus. No myometrial mass. Unremarkable endometrium, with bilayer measuring 5.7mm. Right ovary measures up to 2.7cm. Nonedematous stroma. Normal arterial and venous flow on
spectral doppler. No paraovarian mass. Left ovary measures up to 3.2cm. Nonedematous stroma. Normal ) and other (US cont- normal arterial and venous flow on spectral doppler. No paraovarian mass. No significant free fluid in the pelvis cul-de-sac. )
*Pulse Oximetry
Patient hypoxic: no
*EKG
Interpreted by ED Provider?: NA
Rate: EKG- N/A
*[facility] Nurse Interpretation
Rate: [facility] Nurse- N/A
*Critical Care Note
Total Time (30-74mins, 75-104mins- exclusive of procedures): Not Applicable
ED Attending Note
-
Portions of this chart may have been created with voice recognition software.� Occasional wrong word or��sound alike� substitutions may have occurred due to the inherent limitations of voice recognition software.
Discharge Plan
Departure
Patient Disposition: Home (Routine Discharge)
Date of Disposition: 12/23/23
Time of Disposition: 02:41
Patient with high blood pressure during this ER visit?: No
Condition: Good
Covid-19: Not Applicable
Discharge Problem:
Left lower quadrant abdominal pain
Instructions: Abdominal Pain
Prescriptions:
No Action
ondansetron HCl 4 mg Tablet
4 mg PO Q6H PRN (Reason: nausea)
metoprolol succinate 25 mg Tablet Extended Release 24 Hr
25 mg PO DAILY
sertraline [Zoloft] 50 mg Tablet
50 mg PO DAILY
acetaminophen 325 mg Tablet
650 mg PO Q4HPRN PRN (Reason: mild pain/SUN/temp> 100.4F) Qty: 0 0RF
enoxaparin [Lovenox] 80 mg/0.8 mL Syringe
80 mg SC Q12H
metoprolol succinate 50 mg tablet extended release 24 hr
50 mg PO DAILY 14 Days Qty: 14 0RF
ondansetron 4 mg Tablet,Disintegrating
4 mg PO TIDPRN PRN (Reason: nausea/vomiting) Qty: 12 0RF
Referrals:
Kamala Berman CRNP [Family Provider] - Call in 1-3 days for appt
Activity Restrictions/Additional Instructions:
As discussed, your blood work shows that your liver enzymes are slightly elevated. This can be due to medication or a viral illness. Please increase your water intake to 8-8oz glasses daily. Your urine is negative for infection and your US is
negative for any Ovarian cyst or free fluid in the pelvis. You may have pulled a groin muscle. IF YOU HAVE INCREASED OR CHANGING PAIN, FEVER, OR YOU HAVE ANY OTHER CONCERNS PLEASE RETURN TO THE EMERGENCY ROOM.
Interventions
Interventions:
*Risk Screen - Suicide Last Done: 12/22/23 22:35
*General Assessment Last Done: 12/22/23 22:35
*Neglect/Abuse Screening Last Done: 12/22/23 22:35
MQ-Qoxqzw-Vhmvxucqnx Assessment Last Done: 12/23/23 00:15
Discharge Date and Time
Print Language: TURKMEN
[2023-12-23] MEDS: NSS 1000 IV (00:14)
[2023-12-23 00:15] VITALS: BMI 29.9
[2023-12-23 02:22] LABS: Urine Albumin Negative (Neg - Trace); Urine Bilirubin Negative (Negative); Urine Character Clear (Clear); Urine Color Yellow; Urine Glucose Negative (Negative); Urine Ketone Negative (Negative); Urine Leukocyte Negative (Negative); Urine Nitrite Negative (Negative); Urine Occult Blood Negative (Negative); Urine Urobilinogen Negative (Neg - 1+)
[2023-12-23 02:50] VITALS: BP 126/70
== END 2023-12-23 02:53 | disposition home or self-care (01) ==
LOC: EMR 22:23
PROVIDERS: Clinical Nurse Specialist Family Health; EMERGENCY PHYSICIAN Emergency Medicine; FAMILY PHYSICIAN Family Medicine
DX: R10.32 Left lower quadrant pain (principal)
CPT/HCPCS: 99284; 96360; 76856; 80053; 81003; 84703; 85025

== ENCOUNTER → 2024-01-03 11:35 | Outpatient (REF) | payer BC, SELFPAY | LOC: RAD 11:35 | PROVIDERS: ATTENDING PHYSICIAN Internal Medicine Rheumatology; FAMILY PHYSICIAN Family Medicine | DX: M54.2 Cervicalgia (principal) | CPT/HCPCS: 72050; 73523 ==

== ENCOUNTER 2024-01-09 18:43 | Emergency (ER) | payer BC, SELFPAY ==
[2024-01-09 18:50] VITALS: BP 124/82
[2024-01-09 19:07] LABS: % Basophils 0.5 % (0-2); % Eosinophils 0.7 % (0-6); % Immature Granulocytes 0.5 % (0-0.5); % Lymphocytes 45.6 % (20.5-51.1); % Monocytes 7.8 % (1.7-9.3); % Neutrophils 44.9 % (42.2-75.2); Absolute Basophils 0.1 10^3/uL (0-0.2); Absolute Eosinophils 0.1 10^3/uL (0-0.7); Absolute Immature Granulocytes 0.1 10^3/uL (0-0.05); Absolute Lymphocytes 4.7 10^3/uL (1.2-3.4); Absolute Monocytes 0.8 10^3/uL (0.1-0.6); Absolute Neutrophils 4.6 10^3/uL (1.4-6.5); Hematocrit 37.9 % (37.0-47.0); Hemoglobin 12.9 g/dL (12.0-16.0); Mean Corpuscular Hgb 30.3 pg (27.0-31.0); Mean Platelet Volume 9.4 fL (7.4-10.4); Nucleated Red Blood Cells % 0 %; Platelet Count 331 10^3/uL (130-400); Red Blood Cell Count 4.26 10^6/uL (4.20-5.40); Red Cell Dist. Width 12.5 % (11.5-14.5); White Blood Cell Count 10.3 10^3/uL (4.8-10.8)
[2024-01-09 19:24] LABS: HCG, Serum Qualitative Screen Negative
[2024-01-09 19:26] LABS: ALT (SGPT) 32 U/L (0-35); AST (SGOT) 24 U/L (14-36); Albumin 4.5 g/dl (3.5-5.0); Alkaline Phosphatase 49 U/L (38-126); Blood Urea Nitrogen 15 mg/dl (7-17); Calcium 9.7 mg/dl (8.4-10.2); Carbon Dioxide 22 mmol/L (22-30); Chloride 104 mmol/L (98-107); Glucose 95 mg/dl (70-99); Potassium 4.5 mmol/L (3.5-5.1); Sodium 136 mmol/L (135-145); Total Bilirubin 0.3 mg/dl (0.2-1.3); Total Protein 7.7 g/dl (6.3-8.2); eGFR > 60.00
--- NOTE | 2024-01-09 20:02 | ED.GENMED ---
History of Present Illness
General
Chief Complaint: Abdominal Pain
Source: patient and significant other
Time Seen by Provider: 01/09/24 19:57
Nursing documentation reviewed up to this point in time: agreed with
Travel History
Have you had any contact with someone who has COVID-19?: No
Do you have any symptoms of coronavirus? Fever > 100 degrees, chills, cough, shortness of breath, sore throat, loss of taste or smell, muscle aches, or headache?: No
History of Present Illness
History of Present Illness:
23-year-old female presents to the emergency department complaining of lower abdominal pain, suprapubic that began today, and got sharp and intense. She does feel that is easing some.
Past History
Past History
ED Past Medical History: Psychiatric (Anxiety, Depression) and Other ( IBS, ovarian cyst, colitis, DVT, C-diff, PCOS, POTS, PE, Migraines, )
ED Past Surgical History: Gynecological (Hyemectomy) and Orthopedic (Left knee meniscus and MPFO)
Social History
Tobacco: Non-smoker
Alcohol: None
Drug: None
Personal: Single
Living: with roommate
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
Family History
Family History: Other
Review of Systems
Review of Systems
Allergies reviewed?: Yes
All Other Systems: Not applicable
Constitutional: Reports no symptoms
EENT: Reports no symptoms
Respiratory: Reports no symptoms
Cardiac: Reports no symptoms
ABD/GI: Reports no symptoms
: Reports other (Pelvic pain)
Musculoskeletal: Reports no symptoms
Skin: Reports no symptoms
Neurological: Reports no symptoms
Endocrine: Reports no symptoms
Hematologic/Lymphatic: Reports no symptoms
Psychiatric: Reports no symptoms
Phy Exam
Physical Exam
Physical Exam:
Physical Exam
General: no apparent distress, not acutely ill
Neck: supple. no meningeal signs. normal posterior pharynx
Heart: s1/s2 regular rate and rhythm, no murmur. equal radial
pulses.
HEENT: Pupils equal round reactive to light, EOMI
Lungs: no acute respiratory distress. clear bilaterally
Abdomen: normal bowel sounds. not tender. no CVAT
Neuro: alert and oriented. no focal neurological deficits
Skin: no rash
Psychiatric: well kept. interactive and cooperative
Extremities: no edema. no calf tenderness. negative homans. good distal pulses
Course
Orders/Labs/Results
Orders:
Orders
01/09/24 18:53
Test Result ONCE
01/09/24 19:01
CMP [Comprehensive Metabolic Panel] Urgent
Complete Blood Count/With Diff Urgent
HCG, Serum Qualitative Screen Urgent
01/09/24 19:57
US Pelvis W Transvag Combined Urgent
Comment:
Reason For Exam: pelvic, lower abdominal pain
01/09/24 21:01
Urinalysis Reflex To Culture Urgent
Date Specimen was Collected: 01/09/24
Time Specimen was Collected: 20:57
Abnormal Lab Results
01/09/24
19:01
Abs Immat Gran (auto) 0.1 H 10^3/uL
(0-0.05)
Absolute Lymphs (auto) 4.7 H 10^3/uL
(1.2-3.4)
Absolute Monos (auto) 0.8 H 10^3/uL
(0.1-0.6)
01/09/24 19:01
01/09/24 19:01
Vital Signs
Initial and Last Documented VS:
Initial Vital Signs
Temp Pulse Resp BP Pulse Ox
98 F 90 24 124/82 100
01/09/24 18:50 01/09/24 18:50 01/09/24 18:50 01/09/24 18:50 01/09/24 18:50
Last Documented Vital Signs
Temp Pulse Resp BP Pulse Ox
98 F 90 24 124/82 100
01/09/24 18:50 01/09/24 18:50 01/09/24 18:50 01/09/24 18:50 01/09/24 18:50
MDM/Problems Addressed
Differential Diagnosis Includes:
Ovarian torsion, UTI
MDM/Problems Addressed:
23-year-old female with right hemorrhagic ovarian cyst. Vital signs stable. Stable for discharge. No signs of torsion. Follow-up with [facility].
Chronic conditions affecting care: Other (Pulmonary embolism)
Acute Exacerbation and/or Progression of Chronic Illness: Other (pulmonary embolism)
*Radiology
Radiology exam reviewed: radiology read reviewed (us pelvis: right ovarian cyst)
*Pulse Oximetry
Patient hypoxic: no
*EKG
Interpreted by ED Provider?: NA
*Re Etcher Interpretation
Rate: Re Etcher- N/A
*Critical Care Note
Total Time (30-74mins, 75-104mins- exclusive of procedures): Not Applicable
Data Reviewed
Review of Other/Old Records Reveals: Radiology Studies
ED Attending Note
-
Portions of this chart may have been created with voice recognition software.� Occasional wrong word or��sound alike� substitutions may have occurred due to the inherent limitations of voice recognition software.
Discharge Plan
Departure
Patient Disposition: Home (Routine Discharge)
Date of Disposition: 01/09/24
Time of Disposition: 21:51
Patient with high blood pressure during this ER visit?: Yes
Condition: Good
Discharge Problem:
Hemorrhagic cyst of right ovary
Instructions: Ovarian Cyst ED, BLOOD PRESSURE
Prescriptions:
No Action
ondansetron HCl 4 mg Tablet
4 mg PO Q6H PRN (Reason: nausea)
metoprolol succinate 25 mg Tablet Extended Release 24 Hr
25 mg PO DAILY
sertraline [Zoloft] 50 mg Tablet
50 mg PO DAILY
acetaminophen 325 mg Tablet
650 mg PO Q4HPRN PRN (Reason: mild pain/SUN/temp> 100.4F) Qty: 0 0RF
enoxaparin [Lovenox] 80 mg/0.8 mL Syringe
80 mg SC Q12H
metoprolol succinate 50 mg tablet extended release 24 hr
50 mg PO DAILY 14 Days Qty: 14 0RF
ondansetron 4 mg Tablet,Disintegrating
4 mg PO TIDPRN PRN (Reason: nausea/vomiting) Qty: 12 0RF
Referrals:
Kamala Berman CRNP [Family Provider] -
Tamra rEazo MD [Active] - Call in 1-3 days for appt
Interventions
Interventions:
*Risk Screen - Suicide Last Done: 01/09/24 18:50
*Neglect/Abuse Screening Last Done: 01/09/24 18:50
ED- Fall Risk Assessment Last Done: 01/09/24 22:11
*Nursing Disposition Last Done: 01/09/24 22:11
PC-Becjvn-Gsxzpbzkwf Assessment Last Done: 01/09/24 20:00
Discharge Date and Time
Discharge Date/Time: 01/09/24 22:11
Print Language: ROMANSH
[2024-01-09 21:07] LABS: Urine Albumin Negative (Neg - Trace); Urine Bilirubin Negative (Negative); Urine Character Clear (Clear); Urine Color Straw; Urine Glucose Negative (Negative); Urine Ketone Negative (Negative); Urine Leukocyte Negative (Negative); Urine Nitrite Negative (Negative); Urine Occult Blood Negative (Negative); Urine Specific Gravity 1.005 (<1.030); Urine Urobilinogen Negative (Neg - 1+)
== END 2024-01-09 22:11 | disposition home or self-care (01) ==
LOC: EMR 18:43
PROVIDERS: Emergency Medicine; EMERGENCY PHYSICIAN Emergency Medicine; FAMILY PHYSICIAN Family Medicine
DX: N83.201 Unspecified ovarian cyst, right side (principal); F41.8 Other specified anxiety disorders; K58.9 Irritable bowel syndrome, unspecified; G90.A Postural orthostatic tachycardia syndrome [POTS]; Z86.718 Personal history of other venous thrombosis and embolism
CPT/HCPCS: 99284; 76830; 76856; 80053; 81003; 84703; 85025

== ENCOUNTER → 2024-01-12 10:14 | Outpatient (REF) | payer BC, SELFPAY | LOC: CPAP 10:14 | PROVIDERS: ATTENDING PHYSICIAN Obstetrics & Gynecology | DX: Z01.419 Encounter for gynecological examination (general) (routine) without abnormal findings (principal); Z12.4 Encounter for screening for malignant neoplasm of cervix | CPT/HCPCS: G0123 ==

== ENCOUNTER 2024-01-23 18:07 | Emergency (ER) | payer BC, SELFPAY ==
[2024-01-23 18:09] VITALS: BP 130/85
--- NOTE | 2024-01-23 19:02 | ED.GENMED ---
History of Present Illness
General
Chief Complaint: Breathing Problem
Source: patient
Exam Limitations: none
Time Seen by Provider: 01/23/24 18:34
Travel History
Have you had any contact with someone who has COVID-19?: No
Do you have any symptoms of coronavirus? Fever > 100 degrees, chills, cough, shortness of breath, sore throat, loss of taste or smell, muscle aches, or headache?: No
History of Present Illness
History of Present Illness:
This is a 23 year old female that comes in with c/o tremors. States that this started 3 days ago and she feels like they are getting worse. States that she felt shaky at work and was nauseated. States that they have recently increased her Zoloft
dose from 75mg to 100mg. States that she has felt SOB and lightheaded and she was not sure if this was her anxiety. Denies any fever, chills, chest pain, abd pain, vomiting, diarrhea, headache, urinary burning.
Past History
Past History
ED Past Medical History: Psychiatric (Anxiety, Depression) and Other ( IBS, ovarian cyst, colitis, DVT/PE, C-diff, PCOS, POTS, Migraines, )
ED Past Surgical History: Gynecological (Hyemectomy) and Orthopedic (Left knee meniscus and MPFO)
Social History
Tobacco: Non-smoker
Alcohol: None
Drug: None
Personal: Single
Living: with roommate
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
Family History
Family History: Other
Review of Systems
Review of Systems
All Other Systems: ROS reviewed and negative except as documented in HPI and ROS
Constitutional: Reports no symptoms; Denies fever or chills
EENT: Reports no symptoms
Respiratory: Reports trouble breathing; Denies cough
Cardiac: Reports no symptoms; Denies chest pain
ABD/GI: Reports nausea; Denies abdominal pain, vomiting or diarrhea
: Reports no symptoms; Denies dysuria, frequency or urgency
Musculoskeletal: Reports no symptoms
Skin: Reports no symptoms
Neurological: Reports other (Lightheaded, Feels shaky); Denies dizzy or headache
Psychiatric: Reports no symptoms
Phy Exam
General Physical Exam
General Presentation: well appearing and no apparent distress
General age: appears stated age
General Skin: warm and dry
General Habitus: normal
General Mental: alert
General Hydration: appears well hydrated
ENT Exam
ENT Exam: TM's normal, pharynx normal and neck supple
Eye Exam
Eye Exam: EOMI
Cardiovascular Exam
Cardiovascular Exam: regular rate/rhythm, no edema, no murmur and normal peripheral pulses
Pulmonary Exam
Pulmonary Exam: lungs clear, no respiratory distress, no rales, chest non tender, no crackles, no rhonchi, no wheezing and no cough
Gastrointestinal Exam
Gastrointestinal Exam: normal bowel sounds, non tender, soft, no organomegaly, no pulsatile mass and non distended
Musculoskeletal Exam
Musculoskeletal Exam: full ROM, no edema and other (No tremors noted)
Skin Exam
Skin Exam: normal color, warm/dry, no rash, no petechia and other (Contusion on the lower abd from Lovanox shots)
Psychiatric Exam
Psychiatric Exam: normal mood/affect
Course
Orders/Labs/Results
Orders:
Orders
01/23/24 19:00
0.9% Sodium Chloride 1000 ml [Nss] 1,000 ml IV BOLUS
Ondansetron Injectable [Zofran] 4 mg IV NOW STA
Test Result ONCE
CR Chest - 2 Views Urgent
Comment:
Reason For Exam: SOB
01/23/24 19:35
Complete Blood Count/With Diff Urgent
Comprehensive Metabolic Panel Urgent
HCG, Serum Qualitative Screen Urgent
Abnormal Lab Results
01/23/24
19:35
Glucose 107 H mg/dl
(70-99)
01/23/24 19:35
01/23/24 19:35
Glucose nonfasting. HCG negative.
Vital Signs
Initial and Last Documented VS:
Initial Vital Signs
Temp Pulse Resp BP Pulse Ox
97.6 F 105 20 130/85 99
01/23/24 18:01/23/24 18:01/23/24 18:01/23/24 18:01/23/24 18:09
Last Documented Vital Signs
Temp Pulse Resp BP Pulse Ox
97.6 F 105 20 130/85 99
01/23/24 18:01/23/24 18:01/23/24 18:01/23/24 18:01/23/24 18:34
MDM/Problems Addressed
Differential Diagnosis Includes:
Reaction to Zoloft, Anxiety
MDM/Problems Addressed:
This is a 23 year old female that comes in with c/o tremors. States that this started 3 days ago and that she recently had her Zoloft dose increased from 75mg to 100mg. States that she was nauseated and had to leave work.
Will check labs. Chest x-ray
Back into see patent. Explained that this is most likely do to Zoloft as Tremors are one of the common sided affects. Encouraged patient to call her Psychiatrist and make him aware of this feeling and to go back down on her Zoloft. Patient to return
with any concerns.
Chronic conditions affecting care: Psychiatric illness
Acute Exacerbation and/or Progression of Chronic Illness: Psychiatric illness
*Radiology
Radiology exam reviewed: radiology read reviewed (Chest= No acute cardiopulmonary process)
*Pulse Oximetry
Patient hypoxic: no
*EKG
Interpreted by ED Provider?: NA
Rate: EKG- N/A
*Rescue Boat Operator Interpretation
Rate: Rescue Boat Operator- N/A
*Critical Care Note
Total Time (30-74mins, 75-104mins- exclusive of procedures): Not Applicable
ED Attending Note
-
Portions of this chart may have been created with voice recognition software.� Occasional wrong word or��sound alike� substitutions may have occurred due to the inherent limitations of voice recognition software.
Discharge Plan
Departure
Patient Disposition: Home (Routine Discharge)
Date of Disposition: 01/23/24
Time of Disposition: 21:46
Patient with high blood pressure during this ER visit?: Yes
Condition: Good
Covid-19: Not Applicable
Discharge Problem:
Medication side effect
Instructions: Adverse Drug Reactions, Adult ED, BLOOD PRESSURE
Prescriptions:
No Action
ondansetron HCl 4 mg Tablet
4 mg PO Q6H PRN (Reason: nausea)
metoprolol succinate 25 mg Tablet Extended Release 24 Hr
25 mg PO DAILY
sertraline [Zoloft] 50 mg Tablet
50 mg PO DAILY
acetaminophen 325 mg Tablet
650 mg PO Q4HPRN PRN (Reason: mild pain/SUN/temp> 100.4F) Qty: 0 0RF
enoxaparin [Lovenox] 80 mg/0.8 mL Syringe
80 mg SC Q12H
metoprolol succinate 50 mg tablet extended release 24 hr
50 mg PO DAILY 14 Days Qty: 14 0RF
ondansetron 4 mg Tablet,Disintegrating
4 mg PO TIDPRN PRN (Reason: nausea/vomiting) Qty: 12 0RF
Referrals:
Kamala Berman CRNP [Family Provider] - Call in 1-3 days for appt
Activity Restrictions/Additional Instructions:
As discussed, your blood work is normal. This is most likely an side affect of the Zoloft. This is one of the common side affects. Please call your Psychiatrist and decreased your Zoloft down to the 75mg that you were taking. Please increase your
water intake to 8-8oz glasses daily. IF YOU HAVE ANY OTHER CONCERNS PLEASE RETURN TO THE EMERGENCY ROOM.
Interventions
Interventions:
*Risk Screen - Suicide Last Done: 01/23/24 18:09
*General Assessment Last Done: 01/23/24 18:09
*Neglect/Abuse Screening Last Done: 01/23/24 18:09
ED- Cardiac Assessment Last Done: 01/23/24 18:34
ED- Pulmonary Assessment Last Done: 01/23/24 18:34
Discharge Date and Time
Print Language: GREENLANDIC
[2024-01-23] MEDS: ZOFRAN 4 MG IV (19:35)
[2024-01-23] MEDS: NSS 1000 IV (19:35)
[2024-01-23 19:46] LABS: % Basophils 0.2 % (0-2); % Eosinophils 0.2 % (0-6); % Immature Granulocytes 0.3 % (0-0.5); % Lymphocytes 31.4 % (20.5-51.1); % Monocytes 6.8 % (1.7-9.3); % Neutrophils 61.1 % (42.2-75.2); Absolute Lymphocytes 2.8 10^3/uL (1.2-3.4); Absolute Monocytes 0.6 10^3/uL (0.1-0.6); Absolute Neutrophils 5.5 10^3/uL (1.4-6.5); Hematocrit 38.9 % (37.0-47.0); Hemoglobin 13.9 g/dL (12.0-16.0); Mean Corp Hgb Conc. 35.7 g/dL (33.0-37.0); Mean Corpuscular Hgb 30.4 pg (27.0-31.0); Mean Corpuscular Volume 85.1 fL (81.0-99.0); Mean Platelet Volume 9.1 fL (7.4-10.4); Nucleated Red Blood Cells % 0 %; Platelet Count 350 10^3/uL (130-400); Red Blood Cell Count 4.57 10^6/uL (4.20-5.40); Red Cell Dist. Width 12.5 % (11.5-14.5); White Blood Cell Count 8.9 10^3/uL (4.8-10.8)
[2024-01-23 19:54] LABS: HCG, Serum Qualitative Screen Negative
[2024-01-23 19:58] LABS: ALT (SGPT) 23 U/L (0-35); AST (SGOT) 21 U/L (14-36); Albumin 4.6 g/dl (3.5-5.0); Alkaline Phosphatase 64 U/L (38-126); Blood Urea Nitrogen 15 mg/dl (7-17); Calcium 9.8 mg/dl (8.4-10.2); Carbon Dioxide 24 mmol/L (22-30); Chloride 106 mmol/L (98-107); Glucose 107 mg/dl (70-99); Potassium 3.8 mmol/L (3.5-5.1); Sodium 138 mmol/L (135-145); Total Bilirubin 0.4 mg/dl (0.2-1.3); eGFR > 60.00
== END 2024-01-23 22:11 | disposition home or self-care (01) ==
LOC: EMR 18:07
PROVIDERS: Clinical Nurse Specialist Family Health; EMERGENCY PHYSICIAN Emergency Medicine; FAMILY PHYSICIAN Family Medicine
DX: R06.02 Shortness of breath (principal); R25.1 Tremor, unspecified; R11.0 Nausea; T43.225A Adverse effect of selective serotonin reuptake inhibitors, initial encounter; R03.0 Elevated blood-pressure reading, without diagnosis of hypertension
CPT/HCPCS: 99284; 96374; 96361; 71046; 80053; 84703; 85025

== ENCOUNTER 2024-01-24 18:07 | Emergency (ER) | payer BC, SELFPAY ==
[2024-01-24 18:08] VITALS: BP 153/90
--- NOTE | 2024-01-24 19:04 | ED.GENMED ---
History of Present Illness
General
Chief Complaint: Headache
Source: patient
Exam Limitations: none
Time Seen by Provider: 01/24/24 18:25
Travel History
Have you had any contact with someone who has COVID-19?: No
Do you have any symptoms of coronavirus? Fever > 100 degrees, chills, cough, shortness of breath, sore throat, loss of taste or smell, muscle aches, or headache?: No
History of Present Illness
History of Present Illness:
Patient was seen here yesterday for tremors. She went to a nutrition internship today. Tremors are resolved. However she developed a funny feeling in her head. Complained of a pounding fullness feeling. Not a true headache. No nausea or vomiting.
Some diarrhea. No photophobia or fever. No rash. Patient is anticoagulated. She talked to her neurologist at [facility] who recommended ER evaluation.
Past History
Past History
ED Past Medical History: Psychiatric (Anxiety, Depression) and Other ( IBS, ovarian cyst, colitis, DVT/PE, C-diff, PCOS, POTS, Migraines, )
ED Past Surgical History: Gynecological (Hyemectomy) and Orthopedic (Left knee meniscus and MPFO)
Social History
Tobacco: Non-smoker
Alcohol: None
Drug: None
Personal: Single
Living: with roommate
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
Family History
Family History: Other
Review of Systems
Review of Systems
All Other Systems: Not applicable
Constitutional: Denies fever
Neurological: Denies dizzy, weakness or numbness
Phy Exam
Physical Exam
Physical Exam:
GENERAL: Alert and oriented in no apparent distress
EYE: Orbits normal. Extraocular muscles intact. Discharge
NECK: Supple, no carotid bruit
ENT: Pharynx without erythema
CARDIAC: Regular rate and rhythm without any obvious murmurs.
LUNGS: Clear breath sounds,normal
ABDOMEN: Soft, without focal tenderness or distention
NEUROLOGICAL: Alert and oriented , cranial nerves II through XII intact. Speech normal. Strength normal. Light touch intact
SKIN: Warm and dry, no rash or lesion, no discoloration, skin intact.
MUSCULOSKELETAL: No edema,no deformity.Good color
PSYCH: Normal and appropriate interaction.
Course
Orders/Labs/Results
Orders:
Orders
01/24/24 19:03
CT Head W/o Iv Contrast Urgent
Comment:
Reason For Exam: Headache/anticoagulated
Vital Signs
Initial and Last Documented VS:
Initial Vital Signs
Temp Pulse Resp BP Pulse Ox
99.1 F 99 19 153/90 100
01/24/24 18:08 01/24/24 18:08 01/24/24 18:08 01/24/24 18:08 01/24/24 18:08
Last Documented Vital Signs
Temp Pulse Resp BP Pulse Ox
98.4 F 72 18 125/72 100
01/24/24 20:27 01/24/24 20:27 01/24/24 20:27 01/24/24 20:27 01/24/24 20:27
MDM/Problems Addressed
Differential Diagnosis Includes:
Patient with vague headache or head fullness like symptoms. Low suspicion for anything serious however with patient's anticoagulation feel CT scan is warranted. Patient had labs done yesterday for her tremors that have resolved. They are all
within normal limits. No indication for repeating labs.
*Radiology
Radiology exam reviewed: radiology read reviewed (Negative CT)
*Pulse Oximetry
Patient hypoxic: no
*Critical Care Note
Total Time (30-74mins, 75-104mins- exclusive of procedures): Not Applicable
Data Reviewed
Review of Other/Old Records Reveals: Labs, Records and Testing
Update Note
Update Note:
No serious etiology for patient's vague head symptoms.
Neurologic exam. Negative head CT. Discharged to follow-up
ED Attending Note
-
Portions of this chart may have been created with voice recognition software.� Occasional wrong word or��sound alike� substitutions may have occurred due to the inherent limitations of voice recognition software.
Discharge Plan
Departure
Patient Disposition: Home (Routine Discharge)
Date of Disposition: 01/24/24
Time of Disposition: 20:39
Patient with high blood pressure during this ER visit?: Yes
Discharge Problem:
Head fullness/headache
Instructions: Headache, Adult (DC), BLOOD PRESSURE
Prescriptions:
No Action
ondansetron HCl 4 mg Tablet
4 mg PO Q6H PRN (Reason: nausea)
metoprolol succinate 25 mg Tablet Extended Release 24 Hr
25 mg PO DAILY
sertraline [Zoloft] 50 mg Tablet
50 mg PO DAILY
acetaminophen 325 mg Tablet
650 mg PO Q4HPRN PRN (Reason: mild pain/SUN/temp> 100.4F) Qty: 0 0RF
enoxaparin [Lovenox] 80 mg/0.8 mL Syringe
80 mg SC Q12H
metoprolol succinate 50 mg tablet extended release 24 hr
50 mg PO DAILY 14 Days Qty: 14 0RF
ondansetron 4 mg Tablet,Disintegrating
4 mg PO TIDPRN PRN (Reason: nausea/vomiting) Qty: 12 0RF
Referrals:
Kamala Berman CRNP [Family Provider] - Follow up in 2-3 days
Interventions
Interventions:
*Risk Screen - Suicide Last Done: 01/24/24 18:08
*General Assessment Last Done: 01/24/24 18:08
*Neglect/Abuse Screening Last Done: 01/24/24 18:08
*ED COVID-19 Vaccine History Last Done: 01/24/24 20:16
ED- Neurological Assessment Last Done: 01/24/24 20:16
Discharge Date and Time
Print Language: ITALIAN
[2024-01-24 20:27] VITALS: BP 125/72
== END 2024-01-24 20:43 | disposition home or self-care (01) ==
LOC: EMR 18:07
PROVIDERS: EMERGENCY PHYSICIAN Emergency Medicine; FAMILY PHYSICIAN Family Medicine
DX: R51.9 Headache, unspecified (principal); F41.8 Other specified anxiety disorders; K58.0 Irritable bowel syndrome with diarrhea; E28.2 Polycystic ovarian syndrome; G90.A Postural orthostatic tachycardia syndrome [POTS]; Z86.718 Personal history of other venous thrombosis and embolism
CPT/HCPCS: 99284; 70450

== ENCOUNTER 2024-02-05 09:08 | Emergency (ER) | payer BC, SELFPAY ==
[2024-02-05 09:10] VITALS: BP 146/100
--- NOTE | 2024-02-05 09:46 | ED.GENMED ---
History of Present Illness
General
Chief Complaint: Abdominal Symptoms
Source: patient
Time Seen by Provider: 02/05/24 09:27
History of Present Illness
History of Present Illness:
23-year-old female states that she was at a [employer] yesterday, in extreme heat, and started to feel very sick described as crampy upper abdominal discomfort nausea, and nonbloody diarrhea. She went into the before meals and felt somewhat
better, but felt that her symptoms recurred again today. She denies fever, chills, sick contacts, chest pain, dyspnea, back pain, urinary symptoms, or other complaints.
Past History
Past History
ED Past Medical History: Psychiatric (Anxiety, Depression) and Other ( IBS, ovarian cyst, colitis, DVT/PE, C-diff, PCOS, POTS, Migraines, )
ED Past Surgical History: Gynecological (Hyemectomy) and Orthopedic (Left knee meniscus and MPFO)
Social History
Tobacco: Non-smoker
Alcohol: None
Drug: None
Personal: Single
Living: with roommate
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
Family History
Family History: Other
Phy Exam
Physical Exam
Physical Exam:
GENERAL: Alert , in no apparent distress, overall nontoxic
EYE: pupils equal and reactive
NECK: Supple, no significant adenopathy.
ENT: o/p clr, mm dry
CARDIAC: Regular rate and rhythm .
LUNGS: Clear breath sounds bilaterally, no acute respiratory distress, no wheezes/rales/rhonchi
ABDOMEN: Soft, without focal tenderness, no r/g, no cvat
NEUROLOGICAL: Alert and oriented, no focal neuro deficits
SKIN: Warm and dry, skin intact.
MUSCULOSKELETAL: No edema, well perfused.
PSYCH: Normal and appropriate interaction.
Course
Orders/Labs/Results
Orders:
Orders
02/05/24 09:46
0.9% Sodium Chloride 1000 ml [Nss] 1,000 ml IV BOLUS
Ondansetron Injectable [Zofran] 4 mg IV NOW STA
Test Result ONCE
02/05/24 10:04
Complete Blood Count/No Diff Urgent
Comprehensive Metabolic Panel Urgent
HCG, Serum Qualitative Screen Urgent
Lipase Urgent
Urinalysis Reflex To Culture Urgent
Date Specimen was Collected: 02/05/24
Time Specimen was Collected: 09:53
Urine Microscopic Reflex Cult Urgent
Urine Culture Urgent
MARGARET Source: U
Specimen Description:
Date Specimen was Collected: 02/05/24
Time Specimen was Collected: :53
Abnormal Lab Results
02/05/24
10:04
Urine Ketones Trace A
(Negative)
Ur Occult Blood Reflex 1+ A
(Negative)
Urine Bacteria (Reflex) Moderate A
(Negative)
02/05/24 10:04
02/05/24 10:04
Vital Signs
Initial and Last Documented VS:
Initial Vital Signs
Temp Pulse Resp BP Pulse Ox
98.3 F 118 16 146/100 98
02/05/24 09:10 02/05/24 09:10 02/05/24 09:10 02/05/24 09:10 02/05/24 09:10
Last Documented Vital Signs
Temp Pulse Resp BP Pulse Ox
98.3 F 111 18 108/59 99
02/05/24 09:10 02/05/24 12:15 02/05/24 12:15 02/05/24 12:00 02/05/24 11:30
*Critical Care Note
Total Time (30-74mins, 75-104mins- exclusive of procedures): Not Applicable
Update Note
Update Note:
Patient presents to the Emergency Department with ___nausea and diarrhea
Number and Complexity of Problems Addressed at the Encounter
� Chronic conditions affecting care:
� Acute Exacerbation and/or Progression of Chronic Illness:
� Differential Diagnosis includes: But not limited to IBS exacerbation, electrolyte disorder, dehydration, infectious source of diarrhea, etc.
Amount and/or Complexity of Data to be Reviewed and Analyzed
� I performed an independent evaluation of and my interpretation is:
EKG:
CT:
Xrays:
Laboratory Studies: Generally unremarkable
Other:
� Review of other/old records reveals:
� Clinical information was obtained by an independent historian:
� Prescriptions/Medications Considered but not given:
� Further testing considered but not performed:
Risk of Complications and/or Morbidity or Mortality of Patient Management
� Social determinants of health affecting care:
� Discussion with other providers (PCP, Hospitalists, Consultants, etc):
� Escalation of care including admission/observation vs risk of discharge considered: 11:46 AM repeat assessment, patient had a very small brown semisolid bowel movement in the emergency department, no further loose stools, feels
well, would like to go home, abdomen soft and nontender. No provide at her request.
ED Attending Note
-
Portions of this chart may have been created with voice recognition software.� Occasional wrong word or��sound alike� substitutions may have occurred due to the inherent limitations of voice recognition software.
Discharge Plan
Departure
Patient Disposition: Home (Routine Discharge)
Date of Disposition: 02/05/24
Time of Disposition: 11:40
Patient with high blood pressure during this ER visit?: Yes
Discharge Problem:
Nausea, Diarrhea
Instructions: Diarrhea in teens and adults, Nausea and Vomiting, Adult (DC), BLOOD PRESSURE
Prescriptions:
No Action
ondansetron HCl 4 mg Tablet
4 mg PO Q6H PRN (Reason: nausea)
metoprolol succinate 25 mg Tablet Extended Release 24 Hr
25 mg PO DAILY
sertraline [Zoloft] 50 mg Tablet
50 mg PO DAILY
acetaminophen 325 mg Tablet
650 mg PO Q4HPRN PRN (Reason: mild pain/SUN/temp> 100.4F) Qty: 0 0RF
enoxaparin [Lovenox] 80 mg/0.8 mL Syringe
80 mg SC Q12H
metoprolol succinate 50 mg tablet extended release 24 hr
50 mg PO DAILY 14 Days Qty: 14 0RF
ondansetron 4 mg Tablet,Disintegrating
4 mg PO TIDPRN PRN (Reason: nausea/vomiting) Qty: 12 0RF
Referrals:
Kamala Berman CRNP [Family Provider] - Follow up in 2-3 days
Stand Alone Forms: Return to Work
Activity Restrictions/Additional Instructions:
IF YOU DEVELOP WORSENING/PERSISTENT ABDOMINAL PAIN, VOMITING, FEVER, BLACK/BLOODY STOOL, CONTINUED DIARRHEA, DIZZINESS, GET WORSE, DO NOT GET BTTER, OR OTHER WORRISOME SIGNS, GO TO THE ER IMMEDIATELY!
Interventions
Interventions:
*Risk Screen - Suicide Last Done: 02/05/24 09:51
*General Assessment Last Done: 02/05/24 09:51
*Neglect/Abuse Screening Last Done: 02/05/24 09:51
ED- Fall Risk Assessment Last Done: 02/05/24 09:51
*ED COVID-19 Vaccine History Last Done: 02/05/24 09:10
*Nursing Disposition Last Done: 02/05/24 12:30
JD-Hmvwdi-Zzlyomcqwd Assessment Last Done: 02/05/24 09:51
Discharge Date and Time
Discharge Date/Time: 02/05/24 12:30
Print Language: TRINIDADIAN
[2024-02-05 10:03] VITALS: BP 129/72
[2024-02-05] MEDS: ZOFRAN 4 MG IV (10:10)
[2024-02-05] MEDS: NSS 1000 IV (10:11)
[2024-02-05 10:13] VITALS: BP 131/80
[2024-02-05 10:14] LABS: Hematocrit 40.5 % (37.0-47.0); Hemoglobin 13.5 g/dL (12.0-16.0); Mean Corp Hgb Conc. 33.3 g/dL (33.0-37.0); Mean Corpuscular Hgb 29.5 pg (27.0-31.0); Mean Corpuscular Volume 88.6 fL (81.0-99.0); Mean Platelet Volume 9.4 fL (7.4-10.4); Platelet Count 308 10^3/uL (130-400); Red Blood Cell Count 4.57 10^6/uL (4.20-5.40); Red Cell Dist. Width 12.6 % (11.5-14.5); White Blood Cell Count 6.7 10^3/uL (4.8-10.8)
[2024-02-05 10:15] LABS: Urine Albumin Negative (Neg - Trace); Urine Bilirubin Negative (Negative); Urine Character Clear (Clear); Urine Color Yellow; Urine Glucose Negative (Negative); Urine Ketone Trace (Negative); Urine Leukocyte Negative (Negative); Urine Nitrite Negative (Negative); Urine Occult Blood 1+ (Negative); Urine Specific Gravity 1.025 (<1.030); Urine Urobilinogen Negative (Neg - 1+)
[2024-02-05 10:26] LABS: HCG, Serum Qualitative Screen Negative
[2024-02-05 10:27] LABS: ALT (SGPT) 34 U/L (0-35); AST (SGOT) 25 U/L (14-36); Albumin 4.7 g/dl (3.5-5.0); Alkaline Phosphatase 65 U/L (38-126); Blood Urea Nitrogen 11 mg/dl (7-17); Calcium 9.9 mg/dl (8.4-10.2); Carbon Dioxide 25 mmol/L (22-30); Chloride 105 mmol/L (98-107); Estimated Creatinine Clearance > 125 ml/min; Glucose 97 mg/dl (70-99); Lipase 61 U/L (23-300); Potassium 4.1 mmol/L (3.5-5.1); Sodium 139 mmol/L (135-145); Total Bilirubin 0.6 mg/dl (0.2-1.3); Total Protein 8.1 g/dl (6.3-8.2); eGFR > 60.00
[2024-02-05 10:38] LABS: Urine Squamous Cell >30 /LPF (Few)
[2024-02-05 10:39] LABS: Urine Red Blood Cell 0-2 /HPF (0-2); Urine White Cell 0-2 /HPF (0-5)
[2024-02-05 10:40] LABS: Urine Bacteria Moderate (Negative)
[2024-02-05 11:00] VITALS: BP 122/75
[2024-02-05 11:10] VITALS: BP 107/59
[2024-02-05 12:00] VITALS: BP 108/59
--- NOTE | 2024-02-05 12:30 | EDRN ---
Reviewed discharge instructions with patient. Verbalized understanding. Ambulated with steady gait to the lobby.
== END 2024-02-05 12:30 | disposition home or self-care (01) ==
LOC: EMR 09:08
PROVIDERS: EMERGENCY PHYSICIAN Emergency Medicine; FAMILY PHYSICIAN Family Medicine
DX: R11.0 Nausea (principal); R19.7 Diarrhea, unspecified
CPT/HCPCS: 99284; 96374; 96361; 80053; 81003; 81015; 83690; 84703; 85027; 87086

== ENCOUNTER 2024-02-13 02:48 | Emergency (ER) | payer BC, SELFPAY ==
[2024-02-13 02:51] VITALS: BP 119/76
--- NOTE | 2024-02-13 03:07 | ED.GENMED ---
History of Present Illness
General
Chief Complaint: Chest Pain
Source: patient
Exam Limitations: none
Time Seen by Provider: 02/13/24 03:07
Nursing documentation reviewed up to this point in time: agreed with
History of Present Illness
History of Present Illness:
Pleasant 23-year-old female presents with burning and chest pain. She states that she had a pulmonary embolus in May and reports that tonight's feeling is similar. Patient denies fever or chills. Denies shortness of breath. Patient is still
taking Lovenox for previous PE.
Past History
Past History
ED Past Medical History: Psychiatric (Anxiety, Depression) and Other ( IBS, ovarian cyst, colitis, DVT/PE, C-diff, PCOS, POTS, Migraines, )
ED Past Surgical History: Gynecological (Hyemectomy) and Orthopedic (Left knee meniscus and MPFO)
Social History
Tobacco: Non-smoker
Alcohol: None
Drug: None
Personal: Single
Living: with roommate
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
Family History
Family History: Other
Review of Systems
Review of Systems
Allergies reviewed?: Yes
All Other Systems: ROS reviewed and negative except as documented in HPI and ROS
Constitutional: Reports no symptoms
EENT: Reports no symptoms
Respiratory: Reports no symptoms
Cardiac: Reports chest pain
ABD/GI: Reports no symptoms
: Reports no symptoms
Musculoskeletal: Reports no symptoms
Skin: Reports no symptoms
Neurological: Reports no symptoms
Endocrine: Reports no symptoms
Hematologic/Lymphatic: Reports no symptoms
Psychiatric: Reports no symptoms
Phy Exam
Physical Exam
Physical Exam:
Physical Exam
Vital signs and allergy list reviewed and agreed with.
GENERAL: Alert , in minimal apparent distress
EYE: pupils equal, EOMI, anicteric
NECK: Supple, no significant adenopathy. No masses. Trachea midline
ENT: Oropharynx is clear, mmm.
CARDIAC: Regular rate and rhythm . No M/R/G
LUNGS: Clear breath sounds bilaterally, no acute respiratory distress, no wheezes/rales/rhonchi
ABDOMEN: Soft, without focal tenderness, no r/g, no cvat. Normal BSx4q
NEUROLOGICAL: Alert and oriented, no focal neuro deficits
SKIN: Warm and dry, skin intact.
MUSCULOSKELETAL: No edema, well perfused. Moves all 4 extremities
PSYCH: Normal and appropriate interaction.
Scores
Heart Score for Chest Pain Patients
STEMI patient?: No
History: Slightly or Non-Suspicious
ECG: Normal
Age: </= 45 years
Risk Factors: No Risk Factors
Troponin: </= Normal Limit
Heart Score for Chest Pain Patients: 0
Heart Score Risk: 2.5% MACE over next 6 weeks
Course
Orders/Labs/Results
Orders:
Orders
02/13/24 02:49
Cardiac Monitoring- Treatment ONCE
EKG- Treatment ONCE
IV Insert/Care/Rem.- Treatment PRN
O2 Therapy [RESP] Urgent
Titrate/Wean O2 to maintain O2 sat greater than (%): 90
Special Instructions: Maintain sats >/=90%
Pulse Ox/spot Check [RESP] Urgent
Quantity: 1
Special Instructions: ON ROOM AIR
02/13/24 03:17
Complete Blood Count/With Diff Urgent
Comprehensive Metabolic Panel Urgent
HCG, Serum Qualitative Screen Urgent
Comment: ADD ON
Magnesium Urgent
NT-proBNP Urgent
PTT Urgent
Prothrombin Time Urgent
TSH Urgent
Troponin I Urgent
02/13/24 03:34
CT Chest Pe Study Urgent
Comment:
Reason For Exam: cp, dyspnea, prev pe
02/13/24 03:48
Test Result ONCE
02/13/24 04:18
Add On- LAB Urgent
Tests Added?: HCG
Abnormal Lab Results
02/13/24
03:17
WBC 11.1 H 10^3/uL
(4.8-10.8)
Abs Immat Gran (auto) 0.1 H 10^3/uL
(0-0.05)
Absolute Lymphs (auto) 5.6 H 10^3/uL
(1.2-3.4)
Absolute Monos (auto) 0.9 H 10^3/uL
(0.1-0.6)
Neutrophils % 39.3 L %
(42.2-75.2)
APTT 46.3 H Sec
(23.4-35.0)
Carbon Dioxide 20 L mmol/L
(22-30)
Glucose 114 H mg/dl
(70-99)
TSH 5.53 H uIU/ml
(0.47-4.68)
02/13/24 03:17
02/13/24 03:17
Vital Signs
Initial and Last Documented VS:
Initial Vital Signs
Temp Pulse Resp BP Pulse Ox
98.2 F 76 18 119/76 100
02/13/24 02:51 02/13/24 02:51 02/13/24 02:51 02/13/24 02:51 02/13/24 02:51
Last Documented Vital Signs
Temp Pulse Resp BP Pulse Ox
98.2 F 78 17 113/66 100
02/13/24 02:51 02/13/24 05:55 02/13/24 05:55 02/13/24 05:54 02/13/24 02:51
*Critical Care Note
Total Time (30-74mins, 75-104mins- exclusive of procedures): Not Applicable
Update Note
Update Note:
IMPRESSION:
Streak artifact limits overall assessment. No definite pulmonary embolus to the lobar level. Nondiagnostic assessment of the segmental and subsegmental branches.
Streak artifact limits assessment of the aorta. Mild cardiomegaly. Lungs clear. No pneumothorax or pleural effusion. Central airways are patent. Hepatomegaly.
Patient had seen pulm in the past. Her sales team leader wants her to see Dr. Vazquez. Both numbers will be listed for follow-up.
ED Attending Note
-
Portions of this chart may have been created with voice recognition software.� Occasional wrong word or��sound alike� substitutions may have occurred due to the inherent limitations of voice recognition software.
Discharge Plan
Departure
Patient Disposition: Home (Routine Discharge)
Date of Disposition: 02/13/24
Time of Disposition: 05:38
Patient with high blood pressure during this ER visit?: No
Condition: Good
Discharge Problem:
Chest pain
Instructions: Chest Pain PCP Follow Up
Prescriptions:
No Action
ondansetron HCl 4 mg Tablet
4 mg PO Q6H PRN (Reason: nausea)
metoprolol succinate 25 mg Tablet Extended Release 24 Hr
25 mg PO DAILY
sertraline [Zoloft] 50 mg Tablet
50 mg PO DAILY
acetaminophen 325 mg Tablet
650 mg PO Q4HPRN PRN (Reason: mild pain/SUN/temp> 100.4F) Qty: 0 0RF
enoxaparin [Lovenox] 80 mg/0.8 mL Syringe
80 mg SC Q12H
metoprolol succinate 50 mg tablet extended release 24 hr
50 mg PO DAILY 14 Days Qty: 14 0RF
ondansetron 4 mg Tablet,Disintegrating
4 mg PO TIDPRN PRN (Reason: nausea/vomiting) Qty: 12 0RF
Referrals:
Kamala Berman CRNP [Family Provider] -
Carlos Laureano MD [Active] -
Chico Vazquez MD [Active] -
Activity Restrictions/Additional Instructions:
It was a pleasure meeting you and taking part in your care. We hope for your continued healing and wellness.
Please read discharge instructions in their entirety. However, they are for general education and may not describe your exact diagnosis at discharge. Information on your ER visit and medical conditions were discussed with you along with appropriate
follow up information...
If indicated, please take your medications as instructed and indicated on discharge paperwork.
Please schedule a follow up appointment as directed. Call to schedule an appointment
Please return to the emergency department with ANY change in, persisting, or worsening of symptoms. If any of your symptoms do not improve, or persist, or become more severe within 6-12 hours, please return to the emergency department for further
care.
Please return to the emergency department if you develop a headache, neck pain/stiffness, fever greater than 100.4F, chest pain, shortness of breath, persistent nausea, vomiting, slurred speech, difficulty walking, numbness/tingling, weakness, signs
of infection or any other symptoms that are worrisome to you.
If you have any questions or concerns please do not hesitate to call the Hospital at or E-mail me directly at [email or web address]
Interventions
Interventions:
*Risk Screen - Suicide Last Done: 02/13/24 02:51
*General Assessment Last Done: 02/13/24 02:51
*Neglect/Abuse Screening Last Done: 02/13/24 02:51
ED- Fall Risk Assessment Last Done: 02/13/24 02:51
*ED COVID-19 Vaccine History Last Done: 02/13/24 02:51
*Nursing Disposition Last Done: 02/13/24 06:00
ED- Cardiac Assessment Last Done: 02/13/24 03:05
Discharge Date and Time
Discharge Date/Time: 02/13/24 06:00
Print Language: TELUGU
[2024-02-13 03:14] VITALS: BMI 30.1
[2024-02-13 03:30] VITALS: BP 100/57
[2024-02-13 03:36] LABS: % Basophils 0.5 % (0-2); % Eosinophils 0.8 % (0-6); % Immature Granulocytes 0.5 % (0-0.5); % Lymphocytes 50.5 % (20.5-51.1); % Monocytes 8.4 % (1.7-9.3); % Neutrophils 39.3 % (42.2-75.2); Absolute Basophils 0.1 10^3/uL (0-0.2); Absolute Eosinophils 0.1 10^3/uL (0-0.7); Absolute Immature Granulocytes 0.1 10^3/uL (0-0.05); Absolute Lymphocytes 5.6 10^3/uL (1.2-3.4); Absolute Monocytes 0.9 10^3/uL (0.1-0.6); Absolute Neutrophils 4.4 10^3/uL (1.4-6.5); Hematocrit 37.2 % (37.0-47.0); Hemoglobin 13.5 g/dL (12.0-16.0); Mean Corp Hgb Conc. 36.3 g/dL (33.0-37.0); Mean Corpuscular Hgb 30.8 pg (27.0-31.0); Mean Corpuscular Volume 84.9 fL (81.0-99.0); Mean Platelet Volume 9.2 fL (7.4-10.4); Nucleated Red Blood Cells % 0 %; Platelet Count 349 10^3/uL (130-400); Red Blood Cell Count 4.38 10^6/uL (4.20-5.40); Red Cell Dist. Width 12.5 % (11.5-14.5); White Blood Cell Count 11.1 10^3/uL (4.8-10.8)
[2024-02-13 03:51] LABS: INR 0.95; PT 12.5 Sec (11.4-14.6)
[2024-02-13 03:52] LABS: APTT 46.3 Sec (23.4-35.0)
[2024-02-13 03:53] LABS: ALT (SGPT) 22 U/L (0-35); AST (SGOT) 23 U/L (14-36); Albumin 4.5 g/dl (3.5-5.0); Alkaline Phosphatase 64 U/L (38-126); Blood Urea Nitrogen 13 mg/dl (7-17); Calcium 9.6 mg/dl (8.4-10.2); Carbon Dioxide 20 mmol/L (22-30); Chloride 105 mmol/L (98-107); Estimated Creatinine Clearance > 125 ml/min; Glucose 114 mg/dl (70-99); Magnesium 1.9 mg/dl (1.6-2.3); Potassium 4.3 mmol/L (3.5-5.1); Sodium 137 mmol/L (135-145); Total Bilirubin 0.4 mg/dl (0.2-1.3); Total Protein 7.8 g/dl (6.3-8.2); eGFR > 60.00
[2024-02-13 04:00] VITALS: BP 123/90
[2024-02-13 04:08] LABS: NT-proBNP < 20.0 pg/ml; Troponin I < 0.012 ng/ml
[2024-02-13 04:22] LABS: TSH 5.53 uIU/ml (0.47-4.68)
[2024-02-13 04:32] LABS: HCG, Serum Qualitative Screen Negative
[2024-02-13 05:54] VITALS: BP 113/66
== END 2024-02-13 06:00 | disposition home or self-care (01) ==
LOC: EMR 02:48
PROVIDERS: EMERGENCY PHYSICIAN Student in an Organized Health Care Education/Training Program; FAMILY PHYSICIAN Family Medicine
DX: R07.89 Other chest pain (principal); F32.A Depression, unspecified; F41.9 Anxiety disorder, unspecified; K58.9 Irritable bowel syndrome, unspecified; K52.9 Noninfective gastroenteritis and colitis, unspecified; I51.7 Cardiomegaly; R16.0 Hepatomegaly, not elsewhere classified; G90.A Postural orthostatic tachycardia syndrome [POTS]; G43.909 Migraine, unspecified, not intractable, without status migrainosus; E28.2 Polycystic ovarian syndrome; N83.209 Unspecified ovarian cyst, unspecified side; Z86.718 Personal history of other venous thrombosis and embolism; Z86.711 Personal history of pulmonary embolism
CPT/HCPCS: 99285; 94760; 71275; 80053; 83735; 83880; 84443; 84484; 84703; 85025; 85610; 85730; Q9967

== ENCOUNTER 2024-03-17 19:19 | Emergency (ER) | payer BC, SELFPAY ==
[2024-03-17 19:21] VITALS: BP 126/88
[2024-03-17 19:35] LABS: Urine Albumin Trace (Neg - Trace); Urine Bilirubin Negative (Negative); Urine Character Clear (Clear); Urine Color Yellow; Urine Glucose Negative (Negative); Urine Ketone Negative (Negative); Urine Leukocyte Trace (Negative); Urine Nitrite Negative (Negative); Urine Occult Blood 1+ (Negative); Urine Urobilinogen Negative (Neg - 1+)
[2024-03-17 19:36] LABS: HCG, Urine Qualitative Screen Negative
--- NOTE | 2024-03-17 19:39 | ED.GENMED ---
History of Present Illness
General
Chief Complaint: Abdominal Pain
Source: patient
Exam Limitations: none
Time Seen by Provider: 03/17/24 19:30
History of Present Illness
History of Present Illness:
This is a 23 year old female that comes in with c/o left lower abd pain. States that she has a ruptured cyst in December. State that her pain today feels similar but different. States that there is pressure in the left lower abd and that this has been
going on for a few days. States that she has taken Tylenol and used a Heating pad. States that she was nauseated and had a headache. Denies any fever, chills, chest pain, SOB, vomiting, diarrhea, dizziness, urinary burning.
Past History
Past History
ED Past Medical History: Psychiatric (Anxiety, Depression) and Other ( IBS, ovarian cyst, colitis, DVT/PE, C-diff, PCOS, POTS, Migraines, )
ED Past Surgical History: Gynecological (Hymenectomy ) and Orthopedic (Left knee meniscus and MPFO)
Social History
Tobacco: Non-smoker
Alcohol: None
Drug: None
Personal: Single
Living: with roommate
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
Family History
Family History: Other
Review of Systems
Review of Systems
All Other Systems: ROS reviewed and negative except as documented in HPI and ROS
Constitutional: Reports no symptoms; Denies fever or chills
EENT: Reports no symptoms
Respiratory: Reports no symptoms; Denies cough or trouble breathing
Cardiac: Reports no symptoms; Denies chest pain
ABD/GI: Reports abdominal pain and nausea; Denies vomiting or diarrhea
: Reports no symptoms; Denies dysuria, frequency or urgency
Musculoskeletal: Reports no symptoms
Skin: Reports no symptoms
Neurological: Reports headache; Denies dizzy
Psychiatric: Reports no symptoms
Phy Exam
General Physical Exam
General Presentation: well appearing and no apparent distress
General age: appears stated age
General Skin: warm and dry
General Habitus: normal
General Mental: alert
General Hydration: appears well hydrated
ENT Exam
ENT Exam: TM's normal, pharynx normal and neck supple
Eye Exam
Eye Exam: EOMI
Cardiovascular Exam
Cardiovascular Exam: regular rate/rhythm, no edema, no murmur and normal peripheral pulses
Pulmonary Exam
Pulmonary Exam: lungs clear, no respiratory distress, no rales, chest non tender, no crackles, no rhonchi, no wheezing and no cough
Gastrointestinal Exam
Gastrointestinal Exam: normal bowel sounds, soft, no organomegaly, no pulsatile mass, non distended and tender (Very slight tenderness Left lower abd)
Musculoskeletal Exam
Musculoskeletal Exam: full ROM and no edema
Skin Exam
Skin Exam: normal color, warm/dry, no rash and no petechia
Psychiatric Exam
Psychiatric Exam: normal mood/affect
Course
Orders/Labs/Results
Orders:
Orders
03/17/24 19:26
Test Result ONCE
03/17/24 19:27
HCG, Urine Qualitative Screen Urgent
Date Specimen was Collected: 03/17/24
Time Specimen was Collected: 19:26
Urinalysis Reflex To Culture Urgent
Date Specimen was Collected: 03/17/24
Time Specimen was Collected: 19:26
Urine Microscopic Reflex Cult Urgent
03/17/24 19:38
0.9% Sodium Chloride 1000 ml [Nss] 1,000 ml IV BOLUS
Ketorolac [Toradol] 30 mg IV NOW STA
US Pelvis W Transvag Combined Urgent
Comment: History of PCOS
Reason For Exam: Left lower abd pain
03/17/24 20:11
Complete Blood Count/With Diff Urgent
Comprehensive Metabolic Panel Urgent
Abnormal Lab Results
03/17/24 03/17/24
19:27 20:11
Abs Immat Gran (auto) 0.1 H 10^3/uL
(0-0.05)
Glucose 105 H mg/dl
(70-99)
Ur Occult Blood Reflex 1+ A
(Negative)
Leukocyte Esterase Rfl Trace A
(Negative)
03/17/24 20:11
03/17/24 20:11
Glucose nonfasting. Urine negative for infection. HCG negative.
Vital Signs
Initial and Last Documented VS:
Initial Vital Signs
Temp Pulse Resp BP Pulse Ox
98.1 F 101 16 126/88 100
03/17/24 19:21 03/17/24 19:21 03/17/24 19:21 03/17/24 19:21 03/17/24 19:21
Last Documented Vital Signs
Temp Pulse Resp BP Pulse Ox
99.1 F 72 14 117/69 100
03/17/24 23:07 03/17/24 23:07 03/17/24 23:07 03/17/24 23:07 03/17/24 23:07
MDM/Problems Addressed
Differential Diagnosis Includes:
PCOS, POTS, Colitis,
MDM/Problems Addressed:
This is a 23 year old female that comes in with c/o left lower abd pain. States that this has been going on for a few days and that there is pressure. States that this feels almost like when she had a ruptured cyst but different.
Will get labs, urine, US and give Pain medication with IV fluids.
Back into see patient. Reviewed US report. Patient has a History of PCOS. 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 Tylenol as needed for pain. Heat or ice to help with pain control. Return with any concerns.
Chronic conditions affecting care:
PCOS, POTS
Acute Exacerbation and/or Progression of Chronic Illness:
PCOS, POTS
*Radiology
Radiology exam reviewed: radiology read reviewed (US- Nrjerelkadee deeke sonographic appearance of the uterus and left ovary. Confirmation of bilateral ovarian blood flow. 2.3 cm complex right ovarian cyst measuring just slightly larger in size in
comparison to prior study. Most likely differential diagnostic possibility would be a hemorrhagic cyst. Other) and other (US cont- complex ovarian cystic lesions cannot be excluded. Recommend follow-up pelvic ultrasound in 2-3 months to confirm
involution. )
*Pulse Oximetry
Patient hypoxic: no
*EKG
Interpreted by ED Provider?: NA
Rate: EKG- N/A
*Deputy K 9 Interpretation
Rate: Deputy K 9- N/A
*Critical Care Note
Total Time (30-74mins, 75-104mins- exclusive of procedures): Not Applicable
ED Attending Note
-
Portions of this chart may have been created with voice recognition software.� Occasional wrong word or��sound alike� substitutions may have occurred due to the inherent limitations of voice recognition software.
Discharge Plan
Departure
Patient Disposition: Home (Routine Discharge)
Date of Disposition: 03/17/24
Time of Disposition: 23:51
Patient with high blood pressure during this ER visit?: No
Condition: Good
Covid-19: Not Applicable
Discharge Problem:
Cyst of right ovary
Instructions: Ovarian Cyst (DC)
Prescriptions:
No Action
ondansetron HCl 4 mg Tablet
4 mg PO Q6H PRN (Reason: nausea)
metoprolol succinate 25 mg Tablet Extended Release 24 Hr
25 mg PO DAILY
sertraline [Zoloft] 50 mg Tablet
50 mg PO DAILY
acetaminophen 325 mg Tablet
650 mg PO Q4HPRN PRN (Reason: mild pain/SUN/temp> 100.4F) Qty: 0 0RF
enoxaparin [Lovenox] 80 mg/0.8 mL Syringe
80 mg SC Q12H
metoprolol succinate 50 mg tablet extended release 24 hr
50 mg PO DAILY 14 Days Qty: 14 0RF
ondansetron 4 mg Tablet,Disintegrating
4 mg PO TIDPRN PRN (Reason: nausea/vomiting) Qty: 12 0RF
Referrals:
Kamala Berman CRNP [Family Provider] -
Activity Restrictions/Additional Instructions:
As discussed, your blood work is normal. You have a right ovarian cyst. Please follow up with your CANAL EQUIPMENT MAINTENANCE SUPERVISOR for further evaluation. You can use Tylenol as needed for any pain. Heat or ice to the lower abd to help with pain control. IF YOU HAVE ANY
OTHER CONCERNS PLEASE RETURN TO THE EMERGENCY ROOM.
Interventions
Interventions:
*Risk Screen - Suicide Last Done: 03/17/24 19:21
*General Assessment Last Done: 03/17/24 19:21
*Neglect/Abuse Screening Last Done: 03/17/24 19:21
*ED COVID-19 Vaccine History Last Done: 03/17/24 19:29
HE-Dtufll-Ruzijvkeyl Assessment Last Done: 03/17/24 20:25
Discharge Date and Time
Print Language: CHINESE
[2024-03-17 19:50] LABS: Urine Red Blood Cell 0-2 /HPF (0-2); Urine White Cell 0-2 /HPF (0-5)
[2024-03-17] MEDS: NSS 1000 IV (20:12)
[2024-03-17 20:21] LABS: % Basophils 0.2 % (0-2); % Eosinophils 0.7 % (0-6); % Immature Granulocytes 0.5 % (0-0.5); % Lymphocytes 34.6 % (20.5-51.1); Absolute Eosinophils 0.1 10^3/uL (0-0.7); Absolute Immature Granulocytes 0.1 10^3/uL (0-0.05); Absolute Lymphocytes 3.2 10^3/uL (1.2-3.4); Absolute Monocytes 0.6 10^3/uL (0.1-0.6); Absolute Neutrophils 5.3 10^3/uL (1.4-6.5); Hematocrit 40.1 % (37.0-47.0); Hemoglobin 13.9 g/dL (12.0-16.0); Mean Corp Hgb Conc. 34.7 g/dL (33.0-37.0); Mean Corpuscular Hgb 29.6 pg (27.0-31.0); Mean Corpuscular Volume 85.3 fL (81.0-99.0); Mean Platelet Volume 9.4 fL (7.4-10.4); Nucleated Red Blood Cells % 0 %; Platelet Count 316 10^3/uL (130-400); Red Cell Dist. Width 12.6 % (11.5-14.5); White Blood Cell Count 9.1 10^3/uL (4.8-10.8)
[2024-03-17 20:41] LABS: ALT (SGPT) 25 U/L (0-35); AST (SGOT) 23 U/L (14-36); Albumin 4.6 g/dl (3.5-5.0); Alkaline Phosphatase 62 U/L (38-126); Blood Urea Nitrogen 12 mg/dl (7-17); Calcium 9.7 mg/dl (8.4-10.2); Carbon Dioxide 22 mmol/L (22-30); Chloride 105 mmol/L (98-107); Glucose 105 mg/dl (70-99); Potassium 3.9 mmol/L (3.5-5.1); Sodium 135 mmol/L (135-145); Total Bilirubin 0.3 mg/dl (0.2-1.3); Total Protein 7.7 g/dl (6.3-8.2); eGFR > 60.00
[2024-03-17 23:07] VITALS: BP 117/69
== END 2024-03-18 00:17 | disposition home or self-care (01) ==
LOC: EMR 19:19
PROVIDERS: Clinical Nurse Specialist Family Health; EMERGENCY PHYSICIAN Emergency Medicine; FAMILY PHYSICIAN Family Medicine
DX: N83.201 Unspecified ovarian cyst, right side (principal)
CPT/HCPCS: 99284; 96374; 96375; 76830; 76856; 80053; 81003; 81015; 81025; 85025

== ENCOUNTER → 2024-03-22 10:17 | Outpatient (REF) | payer BC, SELFPAY ==
[2024-03-22 12:23] LABS: Glycohemoglobin (HgbA1c) 5.5 % (4.0-5.6)
[2024-03-22 12:59] LABS: ALT (SGPT) 22 U/L (0-35); AST (SGOT) 21 U/L (14-36); Albumin 4.7 g/dl (3.5-5.0); Alkaline Phosphatase 60 U/L (38-126); Blood Urea Nitrogen 11 mg/dl (7-17); Calcium 9.8 mg/dl (8.4-10.2); Carbon Dioxide 23 mmol/L (22-30); Chloride 105 mmol/L (98-107); Glucose 83 mg/dl (70-99); HDL Cholesterol 51 mg/dl; LDL Cholesterol, Calculated 197 mg/dl; Potassium 4.2 mmol/L (3.5-5.1); Sodium 137 mmol/L (135-145); Total Bilirubin 0.4 mg/dl (0.2-1.3); Total Cholesterol 296 mg/dl (50-199); Total Protein 7.8 g/dl (6.3-8.2); Triglyceride 243 mg/dl (10-149); Very Low Density Lipoprotein 48 mg/dl (0-30); eGFR > 60.00
[2024-03-22 13:03] LABS: FSH 2.8 mIU/ml; Luteinizing Hormone 6.92 mIU/ml; Prolactin 37.1 ng/ml (3.0-18.6)
[2024-03-22 13:17] LABS: TSH Reflex To Free T4 1.51 uIU/ml (0.47-4.68)
== END ==
LOC: REG 10:17
PROVIDERS: ATTENDING PHYSICIAN Obstetrics & Gynecology; FAMILY PHYSICIAN Family Medicine
DX: N91.2 Amenorrhea, unspecified (principal)
CPT/HCPCS: 36415; 80053; 80061; 82627; 83001; 83002; 83036; 84146; 84270; 84402; 84403; 84443

== ENCOUNTER 2024-03-31 12:37 | Emergency (ER) | payer BC, SELFPAY ==
[2024-03-31 12:39] VITALS: BP 127/86
[2024-03-31 14:08] LABS: % Basophils 0.3 % (0-2); % Eosinophils 0.3 % (0-6); % Immature Granulocytes 0.6 % (0-0.5); % Lymphocytes 28.8 % (20.5-51.1); % Monocytes 6.3 % (1.7-9.3); % Neutrophils 63.7 % (42.2-75.2); Absolute Monocytes 0.4 10^3/uL (0.1-0.6); Absolute Neutrophils 4.4 10^3/uL (1.4-6.5); Hematocrit 39.7 % (37.0-47.0); Hemoglobin 13.6 g/dL (12.0-16.0); Mean Corp Hgb Conc. 34.3 g/dL (33.0-37.0); Mean Corpuscular Volume 87.6 fL (81.0-99.0); Mean Platelet Volume 9.1 fL (7.4-10.4); Nucleated Red Blood Cells % 0 %; Platelet Count 358 10^3/uL (130-400); Red Blood Cell Count 4.53 10^6/uL (4.20-5.40); Red Cell Dist. Width 12.6 % (11.5-14.5); White Blood Cell Count 6.9 10^3/uL (4.8-10.8)
[2024-03-31 14:24] LABS: HCG, Serum Qualitative Screen Negative
[2024-03-31 14:28] LABS: ALT (SGPT) 28 U/L (0-35); AST (SGOT) 22 U/L (14-36); Albumin 4.6 g/dl (3.5-5.0); Alkaline Phosphatase 56 U/L (38-126); Blood Urea Nitrogen 12 mg/dl (7-17); Calcium 9.8 mg/dl (8.4-10.2); Carbon Dioxide 23 mmol/L (22-30); Chloride 103 mmol/L (98-107); Glucose 94 mg/dl (70-99); Potassium 4.2 mmol/L (3.5-5.1); Sodium 138 mmol/L (135-145); Total Bilirubin 0.5 mg/dl (0.2-1.3); Total Protein 7.6 g/dl (6.3-8.2); eGFR > 60.00
--- NOTE | 2024-03-31 14:53 | ED.GENMED ---
History of Present Illness
General
Chief Complaint: Dizziness
Source: patient and significant other
Exam Limitations: none
Time Seen by Provider: 03/31/24 14:27
History of Present Illness
History of Present Illness:
23-year-old female well-known to our emergency department who presents with a variety of complaints. For the last 4 to 5 days she has complained of some lightheadedness. She states she also has had intermittent spasms of her muscles throughout her
body. She has had a very mild headache as well and she is not sure if it is related to the spasms. Patient states she was just concerned. She called her neurologist. Patient does have a history of reported DVT and pulmonary embolism as well as
POTS. She is on Lovenox. She denies any trauma. Significant other reports that she has had very similar symptoms in the past and has had negative workup. Patient on my evaluation states her symptoms are mild and her cramping in her muscles are
only intermittent. No fevers. No shortness of breath
Past History
Past History
ED Past Medical History: Psychiatric (Anxiety, Depression) and Other ( IBS, ovarian cyst, colitis, DVT/PE, C-diff, PCOS, POTS, Migraines, )
ED Past Surgical History: Gynecological (Hymenectomy ) and Orthopedic (Left knee meniscus and MPFO)
Social History
Tobacco: Non-smoker
Alcohol: None
Drug: None
Personal: Single
Living: with roommate
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
Family History
Family History: Other
Phy Exam
Physical Exam
Physical Exam:
CONSTITUTIONAL Patient alert and oriented to person, place and time. Well-appearing. Vital signs reviewed.
HEAD atraumatic, normocephalic.
EYES eyelids normal to inspection, Pupils equally round and reactive to light, Extraocular muscles intact, Conjunctiva normal, Sclera normal.
NECK normal range of motion, Trachea midline, no jugular venous distention.
RESPIRATORY CHEST No respiratory distress noted, Chest expansion equal, Bilateral breath sounds clear.
CARDIOVASCULAR regular rate and rhythm, Heart sounds normal.
ABDOMEN abdomen nontender, Bowel sounds normal. No distention.
BACK normal inspection, no obvious deformities
UPPER EXTREMITY range of motion normal, Motor strength normal, no cyanosis, no edema.
LOWER EXTREMITY range of motion normal, Motor strength normal, no cyanosis, no edema.
NEURO Speech normal, No focal motor deficits, Hutchinson coma scale 15, Memory normal, Cranial Nerves intact to screening exam. No pronator drift.
SKIN skin warm, dry, and normal in color.
PSYCHIATRIC patient oriented to person place and time, Normal affect.
Course
Orders/Labs/Results
Orders:
Orders
03/31/24 12:42
Electrocardiogram (*1) Urgent
Reason for Study: Palpitations
EKG- Treatment ONCE
03/31/24 14:02
CBC/With Diff [Complete Blood Count/With Diff] Urgent
CMP [Comprehensive Metabolic Panel] Urgent
HCG, Serum Qualitative Screen Urgent
Test Result ONCE
Abnormal Lab Results
03/31/24
14:02
Immature Gran % 0.6 H %
(0-0.5)
03/31/24 14:02
03/31/24 14:02
Vital Signs
Initial and Last Documented VS:
Initial Vital Signs
Temp Pulse Resp BP Pulse Ox
98.3 F 110 18 127/86 98
03/31/24 12:39 03/31/24 12:39 03/31/24 12:39 03/31/24 12:39 03/31/24 12:39
Last Documented Vital Signs
Temp Pulse Resp BP Pulse Ox
98.3 F 71 19 127/86 98
03/31/24 12:39 03/31/24 14:15 03/31/24 14:15 03/31/24 12:39 03/31/24 12:39
MDM/Problems Addressed
MDM/Problems Addressed:
Palpitations, lightheadedness, mild headache.
*Pulse Oximetry
Patient hypoxic: no
*EKG
Interpreted by ED Provider?: Yes
Interpretation: normal
Rate: normal
Cody: normal axis
Interval: normal interval
QRS Pattern: normal QRS
Ischemia: no ischemia
*Managing Broker Interpretation
Rate: normal
Interpretation: normal
Rhythm: sinus
*Critical Care Note
Total Time (30-74mins, 75-104mins- exclusive of procedures): Not Applicable
Data Reviewed
Source: patient and significant other
Further Testing Considered But Not Given:
CT head but patient is awake and alert, no trauma, nonfocal neurologic assessment
Patient Management
Escalation/DeEscalation of care consider admission/obs:
Patient appears quite well. Patient well-known to our emergency department. She does get anxiety and stress about medical conditions. No indication for CT imaging at this time. Exam normal. Neuroexam normal. ED workup negative. Okay for
discharge. No new medications recently.
ED Attending Note
-
Portions of this chart may have been created with voice recognition software.� Occasional wrong word or��sound alike� substitutions may have occurred due to the inherent limitations of voice recognition software.
Discharge Plan
Departure
Patient Disposition: Home (Routine Discharge)
Date of Disposition: 03/31/24
Time of Disposition: 14:53
Patient with high blood pressure during this ER visit?: No
Discharge Problem:
Dizziness
Instructions: Dizziness
Prescriptions:
No Action
ondansetron HCl 4 mg Tablet
4 mg PO Q6H PRN (Reason: nausea)
metoprolol succinate 25 mg Tablet Extended Release 24 Hr
25 mg PO DAILY
sertraline [Zoloft] 50 mg Tablet
50 mg PO DAILY
acetaminophen 325 mg Tablet
650 mg PO Q4HPRN PRN (Reason: mild pain/SUN/temp> 100.4F) Qty: 0 0RF
enoxaparin [Lovenox] 80 mg/0.8 mL Syringe
80 mg SC Q12H
metoprolol succinate 50 mg tablet extended release 24 hr
50 mg PO DAILY 14 Days Qty: 14 0RF
ondansetron 4 mg Tablet,Disintegrating
4 mg PO TIDPRN PRN (Reason: nausea/vomiting) Qty: 12 0RF
Activity Restrictions/Additional Instructions:
Please see your doctor in follow-up in next 3 to 5 days. Return immediately for intractable headache, intractable vomiting, altered mentation or any other concerns
Interventions
Interventions:
*Risk Screen - Suicide Last Done: 03/31/24 14:21
*General Assessment Last Done: 03/31/24 14:21
*Neglect/Abuse Screening Last Done: 03/31/24 14:21
ED- Fall Risk Assessment Last Done: 03/31/24 14:21
*ED COVID-19 Vaccine History Last Done: 03/31/24 14:21
ED- Neurological Assessment Last Done: 03/31/24 14:21
ED Swallowing Screen Last Done: 03/31/24 14:23
Discharge Date and Time
Print Language: CENTRAL AFRICAN
== END 2024-03-31 15:08 | disposition home or self-care (01) ==
LOC: EMR 12:37
PROVIDERS: Emergency Medicine; EMERGENCY PHYSICIAN Emergency Medicine; FAMILY PHYSICIAN Family Medicine
DX: R42 Dizziness and giddiness (principal)
CPT/HCPCS: 99284; 80053; 84703; 85025; 93005

== ENCOUNTER → 2024-04-12 07:18 | Outpatient (REF) | payer BC, SELFPAY ==
[2024-04-12 08:32] LABS: Vitamin D, 25-OH*** 21.4 ng/mL (30-80)
[2024-04-12 09:21] LABS: Folate 7.2 ng/ml (2.76-20); Vitamin B12 298 pg/ml (239-931)
[2024-04-13 20:30] LABS: Homocysteine 7 umol/L (0-15)
== END ==
LOC: REG 07:18
PROVIDERS: ATTENDING PHYSICIAN Nurse Practitioner Family
DX: G43.109 Migraine with aura, not intractable, without status migrainosus (principal); E53.8 Deficiency of other specified B group vitamins; E55.9 Vitamin D deficiency, unspecified
CPT/HCPCS: 36415; 82306; 82607; 82746; 83090

== ENCOUNTER 2024-05-10 05:47 | Emergency (ER) | payer BC, SELFPAY ==
[2024-05-10] VITALS (7 sets, daily range): BP systolic 123–128; BP diastolic 67–91; BMI 30.1
--- NOTE | 2024-05-10 07:25 | ED.GENMED ---
History of Present Illness
General
Chief Complaint: Dizziness
Source: patient
Exam Limitations: none
Time Seen by Provider: 05/10/24 07:07
History of Present Illness
History of Present Illness:
23-year-old female presents with complaints of onset of spinning and dizzy sensation this morning. It was worse position changes and rolling over in bed. She is well-known to this department. She has a history of POTS. She also has history of
anxiety related to her medical issues. There is nausea associated with her dizziness. She denies any loss of vision. No neck pain chest pain abdominal pain shortness of breath. No recent fever or congestion. No other complaints at this time.
Past History
Past History
ED Past Medical History: Psychiatric (Anxiety, Depression) and Other ( IBS, ovarian cyst, colitis, DVT/PE, C-diff, PCOS, POTS, Migraines, )
ED Past Surgical History: Gynecological (Hymenectomy ) and Orthopedic (Left knee meniscus and MPFO)
Social History
Tobacco: Non-smoker
Alcohol: None
Drug: None
Personal: Single
Living: with roommate
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
Family History
Family History: Other
Phy Exam
Physical Exam
Physical Exam:
General: Well-appearing slightly anxious female no acute respiratory distress
HEENT: Normocephalic atraumatic pupils equal round reactive to light mucosa moist neck is supple no adenopathy horizontal nystagmus is noted
Heart: Regular rate and rhythm no murmurs
Lungs: Clear no wheeze
Neurologic exam: Alert and oriented x 3 no facial asymmetry no drift on exam finger-nose intact [id number]-[id number] intact. Increased dizziness with Jc-Hallpike to the left.
Extremities: No cyanosis or edema
Skin: Warm no rash
Course
Orders/Labs/Results
Orders:
Orders
05/10/24 05:48
Electrocardiogram (*1) Urgent
Reason for Study: Vertigo / Dizzy
EKG- Treatment ONCE
05/10/24 07:24
0.9% Sodium Chloride 1000 ml [Nss] 1,000 ml IV BOLUS
PT Consult [Pt Eval And Treat] Urgent
Treatment: vestibular eval
Activity Level: Ambulate
05/10/24 07:32
Comprehensive Metabolic Panel Urgent
HCG, Serum Qualitative Screen Urgent
Comment: ADD ON
05/10/24 07:33
Complete Blood Count/With Diff Urgent
05/10/24 07:48
CT Head W/o Iv Contrast Urgent
Comment:
Reason For Exam: headache
Acetaminophen [Tylenol] 1,000 mg PO NOW STA
05/10/24 08:04
Add On- LAB Urgent
Tests Added?: serum
Abnormal Lab Results
05/10/24
07:32
Glucose 107 H mg/dl
(70-99)
05/10/24 07:33
05/10/24 07:32
Vital Signs
Initial and Last Documented VS:
Initial Vital Signs
Temp Pulse Resp BP Pulse Ox
99.1 F 80 20 126/84 100
05/10/24 06:01 05/10/24 06:01 05/10/24 06:01 05/10/24 06:01 05/10/24 06:01
Last Documented Vital Signs
Temp Pulse Resp BP Pulse Ox
98.2 F 87 16 127/74 99
05/10/24 06:48 05/10/24 06:48 05/10/24 06:48 05/10/24 06:48 05/10/24 06:48
MDM/Problems Addressed
Differential Diagnosis Includes:
Dizziness. Question positional vertigo versus CVA. Patient is on Lovenox however there is no unilateral findings or evidence of ataxia on exam. Do not suspect CVA. Considered CT imaging but patient does not endorse severe headache do not suspect
intracranial hemorrhage. Will hold off on CT imaging at this time. Will check basic lab hydrate and consult vestibular therapy.
*Critical Care Note
Total Time (30-74mins, 75-104mins- exclusive of procedures): Not Applicable
Update Note
Update Note:
Patient did complain more of a significant headache after I saw her initially. CT was then ordered to evaluate for any bleeding given of blood thinners. CT was negative. She was also evaluate physical therapy and reassessed and she is feeling
much better. Her dizziness is fading. I suspect positional vertigo do not suspect CVA. She has meclizine tablets at home. Will add Zofran if she needs for nausea. Also prescribed vestibular rehab. Stable for the
ED Attending Note
-
Portions of this chart may have been created with voice recognition software.� Occasional wrong word or��sound alike� substitutions may have occurred due to the inherent limitations of voice recognition software.
Discharge Plan
Departure
Patient Disposition: Home (Routine Discharge)
Date of Disposition: 05/10/24
Time of Disposition: :29
Patient with high blood pressure during this ER visit?: No
Discharge Problem:
Vertigo
Instructions: Vertigo (a Type of Dizziness) (DC)
Prescriptions:
New
ondansetron 4 mg tablet,disintegrating
4 mg PO Q8H PRN (Reason: nausea and vomiting) Qty: 10 0RF
No Action
ondansetron HCl 4 mg Tablet
4 mg PO Q6H PRN (Reason: nausea)
metoprolol succinate 25 mg Tablet Extended Release 24 Hr
25 mg PO DAILY
sertraline [Zoloft] 50 mg Tablet
50 mg PO DAILY
acetaminophen 325 mg Tablet
650 mg PO Q4HPRN PRN (Reason: mild pain/SUN/temp> 100.4F) Qty: 0 0RF
enoxaparin [Lovenox] 80 mg/0.8 mL Syringe
80 mg SC Q12H
metoprolol succinate 50 mg tablet extended release 24 hr
50 mg PO DAILY 14 Days Qty: 14 0RF
ondansetron 4 mg Tablet,Disintegrating
4 mg PO TIDPRN PRN (Reason: nausea/vomiting) Qty: 12 0RF
Referrals:
Kamala Berman CRNP [Family Provider] -
Activity Restrictions/Additional Instructions:
Use Zofran if needed for nausea. Continue with meclizine 25 mg up to 3 times a day if needed. Follow-up with vestibular rehab
Interventions
Interventions:
*Risk Screen - Suicide Last Done: 05/10/24 05:53
*General Assessment Last Done: 05/10/24 06:01
*Neglect/Abuse Screening Last Done: 05/10/24 05:53
ED- Fall Risk Assessment Last Done: 05/10/24 06:01
*ED COVID-19 Vaccine History Last Done: 05/10/24 06:01
ED- Neurological Assessment Last Done: 05/10/24 07:42
Discharge Date and Time
Print Language: TURKMEN
[2024-05-10] MEDS: NSS 1000 IV (07:38)
[2024-05-10 07:47] LABS: % Basophils 0.5 % (0-2); % Eosinophils 0.9 % (0-6); % Immature Granulocytes 0.5 % (0-0.5); % Lymphocytes 43.4 % (20.5-51.1); % Monocytes 7.7 % (1.7-9.3); Absolute Eosinophils 0.1 10^3/uL (0-0.7); Absolute Lymphocytes 3.2 10^3/uL (1.2-3.4); Absolute Monocytes 0.6 10^3/uL (0.1-0.6); Absolute Neutrophils 3.5 10^3/uL (1.4-6.5); Hemoglobin 13.1 g/dL (12.0-16.0); Mean Corp Hgb Conc. 34.5 g/dL (33.0-37.0); Mean Corpuscular Hgb 29.2 pg (27.0-31.0); Mean Corpuscular Volume 84.6 fL (81.0-99.0); Mean Platelet Volume 9.3 fL (7.4-10.4); Nucleated Red Blood Cells % 0 %; Platelet Count 354 10^3/uL (130-400); Red Blood Cell Count 4.49 10^6/uL (4.20-5.40); Red Cell Dist. Width 12.9 % (11.5-14.5); White Blood Cell Count 7.4 10^3/uL (4.8-10.8)
[2024-05-10 07:57] LABS: ALT (SGPT) 29 U/L (0-35); AST (SGOT) 22 U/L (14-36); Albumin 4.8 g/dl (3.5-5.0); Alkaline Phosphatase 65 U/L (38-126); Blood Urea Nitrogen 17 mg/dl (7-17); Carbon Dioxide 24 mmol/L (22-30); Chloride 104 mmol/L (98-107); Estimated Creatinine Clearance > 125 ml/min; Glucose 107 mg/dl (70-99); Potassium 3.9 mmol/L (3.5-5.1); Sodium 142 mmol/L (135-145); Total Bilirubin 0.3 mg/dl (0.2-1.3); Total Protein 7.9 g/dl (6.3-8.2); eGFR > 60.00
[2024-05-10 08:20] LABS: HCG, Serum Qualitative Screen Negative
[2024-05-10] MEDS: TYLENOL 1000 MG PO (09:08)
== END 2024-05-10 09:48 | disposition home or self-care (01) ==
LOC: EMR 05:47
PROVIDERS: Physician Assistant; EMERGENCY PHYSICIAN Emergency Medicine; FAMILY PHYSICIAN Family Medicine
DX: R42 Dizziness and giddiness (principal); G90.A Postural orthostatic tachycardia syndrome [POTS]; F41.8 Other specified anxiety disorders; K58.9 Irritable bowel syndrome, unspecified; Z86.718 Personal history of other venous thrombosis and embolism
CPT/HCPCS: 99284; 96360; 70450; 80053; 84703; 85025; 93005

== ENCOUNTER 2024-06-06 20:15 | Emergency (ER) | payer BC, SELFPAY ==
[2024-06-06] VITALS (7 sets, daily range): BP systolic 109–135; BP diastolic 56–83
[2024-06-06] MEDS: NSS 1000 IV (23:53)
[2024-06-07] VITALS: BP 114/70
[2024-06-07 00:06] LABS: % Basophils 0.3 % (0-2); % Eosinophils 0.2 % (0-6); % Immature Granulocytes 0.2 % (0-0.5); % Lymphocytes 38.6 % (20.5-51.1); % Monocytes 6.3 % (1.7-9.3); % Neutrophils 54.4 % (42.2-75.2); Absolute Lymphocytes 3.5 10^3/uL (1.2-3.4); Absolute Monocytes 0.6 10^3/uL (0.1-0.6); Absolute Neutrophils 4.9 10^3/uL (1.4-6.5); Hematocrit 35.9 % (37.0-47.0); Hemoglobin 12.5 g/dL (12.0-16.0); Mean Corp Hgb Conc. 34.8 g/dL (33.0-37.0); Mean Corpuscular Hgb 30.3 pg (27.0-31.0); Mean Corpuscular Volume 86.9 fL (81.0-99.0); Mean Platelet Volume 9.3 fL (7.4-10.4); Nucleated Red Blood Cells % 0 %; Platelet Count 323 10^3/uL (130-400); Red Blood Cell Count 4.13 10^6/uL (4.20-5.40); Red Cell Dist. Width 12.9 % (11.5-14.5); White Blood Cell Count 9.1 10^3/uL (4.8-10.8)
[2024-06-07 00:20] LABS: HCG, Serum Qualitative Screen Negative
[2024-06-07 00:23] LABS: ALT (SGPT) 22 U/L (0-35); AST (SGOT) 20 U/L (14-36); Albumin 4.7 g/dl (3.5-5.0); Alkaline Phosphatase 51 U/L (38-126); Blood Urea Nitrogen 10 mg/dl (7-17); Calcium 9.6 mg/dl (8.4-10.2); Carbon Dioxide 21 mmol/L (22-30); Chloride 106 mmol/L (98-107); Glucose 87 mg/dl (70-99); Sodium 142 mmol/L (135-145); Total Bilirubin 0.3 mg/dl (0.2-1.3); Total Protein 7.8 g/dl (6.3-8.2); eGFR > 60.00
[2024-06-07 00:30] VITALS: BP 116/59
--- NOTE | 2024-06-07 00:39 | ED.GENMED ---
History of Present Illness
General
Chief Complaint: Heart Rate Problem
Source: patient
Exam Limitations: none
Time Seen by Provider: 06/06/24 21:21
History of Present Illness
History of Present Illness:
This is a 23 year old female that comes in with c/o this feeling of pulsation throughout her body. States that this started last night and continued throughout the day in different area's. States that she felt it in her feet and throughout the day
she felt like her heart was racing. States that she went to an Infusion center today and did get fluid and it made her feel better. States that she did feel little shaky. States that she has a headache on and off and lightheaded. States that she was
nauseated and had diarrhea. Denies any fever, chills, chest pain, SOB, abd pain, vomiting, urinary burning.
Past History
Past History
ED Past Medical History: Psychiatric (Anxiety, Depression) and Other ( IBS, ovarian cyst, colitis, DVT/PE, C-diff, PCOS, POTS, Migraines, )
ED Past Surgical History: Gynecological (Hymenectomy ) and Orthopedic (Left knee meniscus and MPFO)
Social History
Tobacco: Non-smoker
Alcohol: None
Drug: None
Personal: Single
Living: with roommate
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
Family History
Family History: Other
Review of Systems
Review of Systems
All Other Systems: ROS reviewed and negative except as documented in HPI and ROS
Constitutional: Reports no symptoms; Denies fever or chills
EENT: Reports no symptoms
Respiratory: Reports no symptoms; Denies cough or trouble breathing
Cardiac: Reports no symptoms; Denies chest pain
ABD/GI: Reports nausea and diarrhea; Denies abdominal pain or vomiting
: Reports no symptoms; Denies dysuria, frequency or urgency
Musculoskeletal: Reports other (Feels this pulsation different placed in her body)
Skin: Reports no symptoms
Neurological: Reports headache (On and off) and other (Lightheaded); Denies dizzy
Psychiatric: Reports no symptoms
Phy Exam
General Physical Exam
General Presentation: well appearing and no apparent distress
General age: appears stated age
General Skin: warm and dry
General Habitus: normal
General Mental: alert
General Hydration: appears well hydrated
ENT Exam
ENT Exam: TM's normal, pharynx normal and neck supple
Eye Exam
Eye Exam: EOMI
Cardiovascular Exam
Cardiovascular Exam: regular rate/rhythm, no edema, no murmur and normal peripheral pulses
Pulmonary Exam
Pulmonary Exam: lungs clear, no respiratory distress, no rales, chest non tender, no crackles, no rhonchi, no wheezing and no cough
Gastrointestinal Exam
Gastrointestinal Exam: normal bowel sounds, non tender, soft, no organomegaly, no pulsatile mass and non distended
Musculoskeletal Exam
Musculoskeletal Exam: full ROM and no edema
Skin Exam
Skin Exam: normal color, warm/dry, no rash and no petechia
Psychiatric Exam
Psychiatric Exam: normal mood/affect
Course
Orders/Labs/Results
Orders:
Orders
06/06/24 20:16
Electrocardiogram (*1) Urgent
Reason for Study: Tachycardia
EKG- Treatment ONCE
06/06/24 23:53
0.9% Sodium Chloride 1000 ml [Nss] 1,000 ml IV BOLUS
06/06/24 23:55
CMP [Comprehensive Metabolic Panel] Urgent
Complete Blood Count/With Diff Urgent
HCG, Serum Qualitative Screen Urgent
Comment: ADD ON
06/06/24 23:58
Add On- LAB Stat
Tests Added?: qual beta serum
Abnormal Lab Results
06/06/24
23:55
RBC 4.13 L 10^6/uL
(4.20-5.40)
Hct 35.9 L %
(37.0-47.0)
Absolute Lymphs (auto) 3.5 H 10^3/uL
(1.2-3.4)
Carbon Dioxide 21 L mmol/L
(22-30)
06/06/24 23:55
06/06/24 23:55
Carbon dioxide slightly low. HCG negative.
Vital Signs
Initial and Last Documented VS:
Initial Vital Signs
Temp Pulse Resp BP Pulse Ox
98.7 F 107 18 133/83 100
06/06/24 20:21 06/06/24 20:21 06/06/24 20:21 06/06/24 20:21 06/06/24 20:21
Last Documented Vital Signs
Temp Pulse Resp BP Pulse Ox
98.7 F 85 16 111/59 99
06/06/24 20:21 06/06/24 23:15 06/06/24 23:15 06/06/24 23:00 06/06/24 23:15
MDM/Problems Addressed
Differential Diagnosis Includes:
POTS, Dizziness, IBS
MDM/Problems Addressed:
This is a 23 year old female who is well known in the emergency room. Patient comes in with c/o a pulsation in her body and the feeling on and off throughout the day that her heart was racing.
Will check labs and give IV fluids.
Back into see patient. Explained that her blood work is normal along with her ECG. Patient to follow up with the family doctor. Return with any concerns.
Chronic conditions affecting care:
POTS, Dizziness
Acute Exacerbation and/or Progression of Chronic Illness:
POTS, Dizziness
*Pulse Oximetry
Patient hypoxic: no
*EKG
Interpreted by ED Provider?: Yes
Heart Rate: 93
Rate: normal
Rhythm: sinus
Elmer: normal axis
Interval: normal interval
QRS Pattern: normal QRS
Ischemia: no ischemia
*Computer Operations Manager Interpretation
Rate: normal
Heart Rate: 90
*Critical Care Note
Total Time (30-74mins, 75-104mins- exclusive of procedures): Not Applicable
ED Attending Note
-
Portions of this chart may have been created with voice recognition software.� Occasional wrong word or��sound alike� substitutions may have occurred due to the inherent limitations of voice recognition software.
Discharge Plan
Departure
Patient Disposition: Home (Routine Discharge)
Date of Disposition: 06/07/24
Time of Disposition: 00:51
Patient with high blood pressure during this ER visit?: No
Condition: Good
Covid-19: Not Applicable
Discharge Problem:
Palpitations
Instructions: Palpitations (DC)
Prescriptions:
No Action
ondansetron HCl 4 mg Tablet
4 mg PO Q6H PRN (Reason: nausea)
metoprolol succinate 25 mg Tablet Extended Release 24 Hr
25 mg PO DAILY
sertraline [Zoloft] 50 mg Tablet
50 mg PO DAILY
acetaminophen 325 mg Tablet
650 mg PO Q4HPRN PRN (Reason: mild pain/SUN/temp> 100.4F) Qty: 0 0RF
enoxaparin [Lovenox] 80 mg/0.8 mL Syringe
80 mg SC Q12H
metoprolol succinate 50 mg tablet extended release 24 hr
50 mg PO DAILY 14 Days Qty: 14 0RF
ondansetron 4 mg Tablet,Disintegrating
4 mg PO TIDPRN PRN (Reason: nausea/vomiting) Qty: 12 0RF
ondansetron 4 mg tablet,disintegrating
4 mg PO Q8H PRN (Reason: nausea and vomiting) Qty: 10 0RF
Referrals:
Kamala Berman CRNP [Family Provider] - Call in 1-3 days for appt
Activity Restrictions/Additional Instructions:
As discussed, your blood work is all normal along with your ECG. You have been given IV fluids here. Your Monitor shows a normal sinus rhythm and there has not been any extra beats. Please follow up with the family doctor. IF YOU HAVE ANY OTHER
CONCERNS PLEASE RETURN TO THE EMERGENCY ROOM.
Interventions
Interventions:
*Risk Screen - Suicide Last Done: 06/06/24 21:12
*General Assessment Last Done: 06/06/24 21:12
*Neglect/Abuse Screening Last Done: 06/06/24 21:12
ED- Fall Risk Assessment Last Done: 06/06/24 21:12
ED- Cardiac Assessment Last Done: 06/06/24 21:12
ED- Pulmonary Assessment Last Done: 06/06/24 21:12
Discharge Date and Time
Print Language: HUNGARIAN
== END 2024-06-07 01:04 | disposition home or self-care (01) ==
LOC: EMR 20:15
PROVIDERS: Clinical Nurse Specialist Family Health; EMERGENCY PHYSICIAN Emergency Medicine; FAMILY PHYSICIAN Family Medicine
DX: R00.2 Palpitations (principal); R42 Dizziness and giddiness; F41.8 Other specified anxiety disorders; G90.A Postural orthostatic tachycardia syndrome [POTS]; K58.9 Irritable bowel syndrome, unspecified; Z86.718 Personal history of other venous thrombosis and embolism
CPT/HCPCS: 99283; 80053; 84703; 85025; 93005

== ENCOUNTER 2024-06-21 20:37 | Emergency (ER) | payer BC, SELFPAY ==
[2024-06-21 20:52] VITALS: BP 133/89
[2024-06-21 21:23] LABS: Hematocrit 37.2 % (37.0-47.0); Hemoglobin 12.9 g/dL (12.0-16.0); Mean Corp Hgb Conc. 34.7 g/dL (33.0-37.0); Mean Corpuscular Hgb 29.6 pg (27.0-31.0); Mean Corpuscular Volume 85.3 fL (81.0-99.0); Mean Platelet Volume 9.2 fL (7.4-10.4); Platelet Count 351 10^3/uL (130-400); Red Blood Cell Count 4.36 10^6/uL (4.20-5.40); Red Cell Dist. Width 12.6 % (11.5-14.5)
[2024-06-21 21:27] LABS: HCG, Serum Qualitative Screen Negative
[2024-06-21 21:31] LABS: ALT (SGPT) 22 U/L (0-35); AST (SGOT) 20 U/L (14-36); Albumin 4.7 g/dl (3.5-5.0); Alkaline Phosphatase 46 U/L (38-126); Blood Urea Nitrogen 16 mg/dl (7-17); Calcium 9.6 mg/dl (8.4-10.2); Carbon Dioxide 23 mmol/L (22-30); Chloride 105 mmol/L (98-107); Glucose 91 mg/dl (70-99); Potassium 3.9 mmol/L (3.5-5.1); Sodium 142 mmol/L (135-145); Total Bilirubin 0.2 mg/dl (0.2-1.3); Total Protein 7.8 g/dl (6.3-8.2); eGFR > 60.00
[2024-06-21 21:37] VITALS: BP 129/76
[2024-06-21 21:38] LABS: % Basophils 0.3 % (0-2); % Eosinophils 0.9 % (0-6); % Immature Granulocytes 0.4 % (0-0.5); % Lymphocytes 54.3 % (20.5-51.1); % Monocytes 7.2 % (1.7-9.3); % Neutrophils 36.9 % (42.2-75.2); Absolute Eosinophils 0.1 10^3/uL (0-0.7); Absolute Lymphocytes 3.8 10^3/uL (1.2-3.4); Absolute Monocytes 0.5 10^3/uL (0.1-0.6); Absolute Neutrophils 2.6 10^3/uL (1.4-6.5); Nucleated Red Blood Cells % 0 %
[2024-06-21 22:00] VITALS: BP 126/97
--- NOTE | 2024-06-21 22:04 | ED.GENMED ---
History of Present Illness
General
Chief Complaint: Rectal Bleeding
Source: patient
Exam Limitations: none
Time Seen by Provider: 06/21/24 21:55
History of Present Illness
History of Present Illness:
23-year-old female presents complaining of lower abdominal pain couple days ago getting worse. The pain is sharp stabbing in nature. She also notes loose stool. She had some blood on the paper when she wiped herself after having multiple episodes
of diarrhea. However her bloating sensation got worse and pelvic discomfort got worse recently. She has a history of PCOS and is concerned she has another ovarian cyst. No vomiting or fever. No known sick contacts. She has a history of PE and
is on Lovenox. She has a history of POTS, migraines, colitis.
Past History
Past History
ED Past Medical History: Psychiatric (Anxiety, Depression) and Other ( IBS, ovarian cyst, colitis, DVT/PE, C-diff, PCOS, POTS, Migraines, )
ED Past Surgical History: Gynecological (Hymenectomy ) and Orthopedic (Left knee meniscus and MPFO)
Social History
Tobacco: Non-smoker
Alcohol: None
Drug: None
Personal: Single
Living: with roommate
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
Family History
Family History: Other
Phy Exam
Physical Exam
Physical Exam:
General: Well-appearing female no acute respiratory distress
HEENT: Normocephalic atraumatic
Heart: Regular rate and rhythm no murmurs
Lungs: Clear no wheeze
Abd: soft, tender to lower abdomen/pelvic area left greater than right. No CVA tenderness,
Ext: no cyanosis or edema.
Course
Orders/Labs/Results
Orders:
Orders
06/21/24 20:58
Test Result ONCE
06/21/24 21:05
Complete Blood Count/With Diff Urgent
Comprehensive Metabolic Panel Urgent
HCG, Serum Qualitative Screen Urgent
06/21/24 22:02
US Pelvis Transvaginal Only Urgent
Reason For Exam: lower abdominal pain
06/22/24 00:02
CT Abd/pelvis W Iv Cont Urgent
Comment:
Reason For Exam: lower abdominal pain
06/22/24 00:50
Ondansetron Injectable [Zofran] 4 mg .ROUTE .STK-MED ONE
06/22/24 00:52
Ondansetron Injectable [Zofran] 4 mg IV NOW STA
Abnormal Lab Results
06/21/24
21:05
Absolute Lymphs (auto) 3.8 H 10^3/uL
(1.2-3.4)
Neutrophils % 36.9 L %
(42.2-75.2)
Lymphocytes % 54.3 H %
(20.5-51.1)
06/21/24 21:05
06/21/24 21:05
Vital Signs
Initial and Last Documented VS:
Initial Vital Signs
Temp Pulse Resp BP Pulse Ox
98.1 F 83 18 133/89 98
06/21/24 20:52 06/21/24 20:52 06/21/24 20:52 06/21/24 20:52 06/21/24 20:52
Last Documented Vital Signs
Temp Pulse Resp BP Pulse Ox
98.1 F 76 16 131/81 98
06/21/24 20:52 06/22/24 01:45 06/22/24 01:45 06/22/24 00:00 06/22/24 01:45
MDM/Problems Addressed
Differential Diagnosis Includes:
Lower abdominal pain and bloating. Pain reminiscent of prior ovarian cyst. Differential could include ovarian cyst versus ectopic versus diverticulitis versus UTI versus torsion
Patient initially triaged as rectal bleeding however she clarifies that with me her main complaint is lower abdominal discomfort with bloating. Will check labs. Start with pelvic ultrasound. If negative consider CT
*Critical Care Note
Total Time (30-74mins, 75-104mins- exclusive of procedures): Not Applicable
Update Note
Update Note:
Ultrasound was negative. CT was then ordered secondary to ongoing discomfort to the lower abdomen. CT with IV contrast shows no acute finding. Patient has Bentyl at home for spasms. Advise she take this. No indication for admission stable for
discharge. Follow-up with GI
ED Attending Note
-
Portions of this chart may have been created with voice recognition software.� Occasional wrong word or��sound alike� substitutions may have occurred due to the inherent limitations of voice recognition software.
Discharge Plan
Departure
Patient Disposition: Home (Routine Discharge)
Date of Disposition: 06/22/24
Time of Disposition: 02:06
Patient with high blood pressure during this ER visit?: No
Discharge Problem:
Abdominal pain
Instructions: Abdominal Pain
Prescriptions:
No Action
ondansetron HCl 4 mg Tablet
4 mg PO Q6H PRN (Reason: nausea)
metoprolol succinate 25 mg Tablet Extended Release 24 Hr
25 mg PO DAILY
sertraline [Zoloft] 50 mg Tablet
50 mg PO DAILY
acetaminophen 325 mg Tablet
650 mg PO Q4HPRN PRN (Reason: mild pain/SUN/temp> 100.4F) Qty: 0 0RF
enoxaparin [Lovenox] 80 mg/0.8 mL Syringe
80 mg SC Q12H
metoprolol succinate 50 mg tablet extended release 24 hr
50 mg PO DAILY 14 Days Qty: 14 0RF
ondansetron 4 mg Tablet,Disintegrating
4 mg PO TIDPRN PRN (Reason: nausea/vomiting) Qty: 12 0RF
ondansetron 4 mg tablet,disintegrating
4 mg PO Q8H PRN (Reason: nausea and vomiting) Qty: 10 0RF
Referrals:
Kamala Berman CRNP [Family Provider] -
Activity Restrictions/Additional Instructions:
Use Tylenol and/or Bentyl if needed for pain. Follow-up with your GI team. Return here for worsening symptoms
Interventions
Interventions:
*Risk Screen - Suicide Last Done: 06/21/24 20:52
*General Assessment Last Done: 06/21/24 20:52
*Neglect/Abuse Screening Last Done: 06/21/24 20:52
ED- Fall Risk Assessment Last Done: 06/21/24 21:47
TE-Xjuhxn-Zwxihmmize Assessment Last Done: 06/21/24 21:59
ED- Cardiac Assessment Last Done: 06/21/24 21:47
ED- Pulmonary Assessment Last Done: 06/21/24 21:47
Discharge Date and Time
Print Language: EAST TIMOR[place]
[2024-06-21 23:11] VITALS: BP 134/80
[2024-06-22] VITALS: BP 131/81
[2024-06-22] MEDS: ZOFRAN 4 MG IV (00:52)
== END 2024-06-22 02:45 | disposition home or self-care (01) ==
LOC: EMR 20:37
PROVIDERS: Emergency Medicine; EMERGENCY PHYSICIAN Emergency Medicine; FAMILY PHYSICIAN Family Medicine
DX: R10.30 Lower abdominal pain, unspecified (principal); E28.2 Polycystic ovarian syndrome; F41.8 Other specified anxiety disorders; K58.0 Irritable bowel syndrome with diarrhea; Z79.01 Long term (current) use of anticoagulants; Z86.711 Personal history of pulmonary embolism; Z86.718 Personal history of other venous thrombosis and embolism
CPT/HCPCS: 99284; 96374; 74177; 76830; 80053; 84703; 85025; Q9967

== ENCOUNTER → 2024-07-01 08:28 | Outpatient (REF) | payer BC, SELFPAY | LOC: WDC 08:28 | PROVIDERS: ATTENDING PHYSICIAN Obstetrics & Gynecology; FAMILY PHYSICIAN Family Medicine | DX: N63.42 Unspecified lump in left breast, subareolar (principal); N64.4 Mastodynia | CPT/HCPCS: 76642 ==

== ENCOUNTER 2024-08-10 19:40 | Emergency (ER) | payer BC, SELFPAY ==
[2024-08-10 19:53] VITALS: BP 136/86
[2024-08-10 20:17] LABS: % Basophils 0.3 % (0-2); % Eosinophils 0.5 % (0-6); % Immature Granulocytes 0.5 % (0-0.5); % Lymphocytes 39.8 % (20.5-51.1); % Monocytes 7.8 % (1.7-9.3); % Neutrophils 51.1 % (42.2-75.2); Absolute Lymphocytes 2.9 10^3/uL (1.2-3.4); Absolute Monocytes 0.6 10^3/uL (0.1-0.6); Absolute Neutrophils 3.8 10^3/uL (1.4-6.5); Hematocrit 37.6 % (37.0-47.0); Hemoglobin 13.2 g/dL (12.0-16.0); Mean Corp Hgb Conc. 35.1 g/dL (33.0-37.0); Mean Corpuscular Hgb 30.7 pg (27.0-31.0); Mean Corpuscular Volume 87.4 fL (81.0-99.0); Mean Platelet Volume 9.2 fL (7.4-10.4); Nucleated Red Blood Cells % 0 %; Platelet Count 340 10^3/uL (130-400); Red Cell Dist. Width 13.1 % (11.5-14.5); White Blood Cell Count 7.3 10^3/uL (4.8-10.8)
[2024-08-10 20:33] LABS: HCG, Serum Qualitative Screen Negative
[2024-08-10 20:36] LABS: Lipase 97 U/L (23-300)
[2024-08-10 20:38] LABS: ALT (SGPT) 37 U/L (0-35); AST (SGOT) 27 U/L (14-36); Albumin 4.4 g/dl (3.5-5.0); Alkaline Phosphatase 50 U/L (38-126); Blood Urea Nitrogen 16 mg/dl (7-17); Calcium 9.1 mg/dl (8.4-10.2); Carbon Dioxide 27 mmol/L (22-30); Chloride 103 mmol/L (98-107); Glucose 94 mg/dl (70-99); Potassium 4.2 mmol/L (3.5-5.1); Sodium 138 mmol/L (135-145); Total Bilirubin 0.3 mg/dl (0.2-1.3); Total Protein 7.6 g/dl (6.3-8.2); eGFR > 60.00
[2024-08-10 20:40] LABS: Troponin I 0.013 ng/ml
--- NOTE | 2024-08-10 23:41 | ED.GENMED ---
History of Present Illness
General
Chief Complaint: Weakness
Source: patient
Exam Limitations: none
Time Seen by Provider: 08/10/24 23:13
Nursing documentation reviewed up to this point in time: agreed with
History of Present Illness
History of Present Illness:
Pleasant 24-year-old female that presents with chills and lightheadedness that has been present for the last 2 days. Patient has a history of anxiety and POTS. She states that she has felt hot and has had intermittent spasms of the left eye.
Patient denies chest pain or shortness of breath. She reports no focal weakness. States that occasionally she feels shaky but this has been happening for some time and she is being worked up for POTS.
Past History
Past History
ED Past Medical History: Psychiatric (Anxiety, Depression) and Other ( IBS, ovarian cyst, colitis, DVT/PE, C-diff, PCOS, POTS, Migraines, )
ED Past Surgical History: Gynecological (Hymenectomy ) and Orthopedic (Left knee meniscus and MPFO)
Social History
Tobacco: Non-smoker
Alcohol: None
Drug: None
Personal: Single
Living: with roommate
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
Family History
Family History: Other
Review of Systems
Review of Systems
Allergies reviewed?: Yes
Other source history: family
All Other Systems: ROS reviewed and negative except as documented in HPI and ROS
Constitutional: Reports no symptoms
EENT: Reports no symptoms
Respiratory: Reports no symptoms
Cardiac: Reports no symptoms
ABD/GI: Reports no symptoms
: Reports no symptoms
Musculoskeletal: Reports no symptoms
Skin: Reports no symptoms
Neurological: Reports no symptoms
Endocrine: Reports no symptoms
Hematologic/Lymphatic: Reports no symptoms
Psychiatric: Reports no symptoms
Phy Exam
General Physical Exam
General Presentation: well appearing and no apparent distress
General Skin: warm and dry
General Habitus: normal
General Mental: alert
General Hydration: appears well hydrated
ENT Exam
ENT Exam: EOMI, pharynx normal, neck supple and normocephalic
Eye Exam
Eye Exam: PERRL, cornea clear and conjunctiva normal
Cardiovascular Exam
Cardiovascular Exam: regular rate/rhythm, no edema, no murmur and normal peripheral pulses
Pulmonary Exam
Pulmonary Exam: lungs clear, no respiratory distress, no rales, no crackles, no rhonchi, no stridor, no wheezing and no cough
Gastrointestinal Exam
Gastrointestinal Exam: normal bowel sounds, non tender, soft, no organomegaly, no pulsatile mass and non distended
Neurological Exam
Neurological Exam: alert, oriented x3, no motor deficits and speech normal
Musculoskeletal Exam
Musculoskeletal Exam: full ROM and no edema
Skin Exam
Skin Exam: normal color, warm/dry, no rash and no petechia
Psychiatric Exam
Psychiatric Exam: normal mood/affect
Course
Orders/Labs/Results
Orders:
Orders
08/10/24 19:57
Electrocardiogram (*1) Urgent
Reason for Study: Chest Pain
EKG- Treatment ONCE
Complete Blood Count/With Diff Urgent
Comprehensive Metabolic Panel Urgent
HCG, Serum Qualitative Screen Urgent
Comment: Notify provider if positive test present
Lipase Stat
Troponin I Urgent
Test Result ONCE
08/10/24 23:13
Urinalysis Reflex To Culture Urgent
Date Specimen was Collected: 08/11/24
Time Specimen was Collected: 00:03
08/10/24 23:14
0.9% Sodium Chloride 1000 ml [Nss] 1,000 ml IV BOLUS
Abnormal Lab Results
08/10/24
19:57
ALT 37 H U/L
(0-35)
08/10/24 19:57
08/10/24 19:57
Vital Signs
Initial and Last Documented VS:
Initial Vital Signs
Temp Pulse Resp BP Pulse Ox
98.4 F 87 16 136/86 98
08/10/24 19:53 08/10/24 19:53 08/10/24 19:53 08/10/24 19:53 08/10/24 19:53
Last Documented Vital Signs
Temp Pulse Resp BP Pulse Ox
98.1 F 68 17 124/69 98
08/11/24 00:07 08/11/24 01:39 08/11/24 01:39 08/11/24 01:39 08/11/24 01:39
*Critical Care Note
Total Time (30-74mins, 75-104mins- exclusive of procedures): Not Applicable
Update Note
Update Note:
08/11/2024 0236 AM: Patient states that after the IV fluid, patient is asymptomatic and feels great. She has no symptoms at this time and wishes to be discharged home. She will continue to follow-up with her neurologist.
ED Attending Note
-
Portions of this chart may have been created with voice recognition software.� Occasional wrong word or��sound alike� substitutions may have occurred due to the inherent limitations of voice recognition software.
Discharge Plan
Departure
Patient Disposition: Home (Routine Discharge)
Date of Disposition: 08/11/24
Time of Disposition: 02:37
Patient with high blood pressure during this ER visit?: Yes
Discharge Problem:
Generalized weakness
Instructions: Generalized Weakness (DC), BLOOD PRESSURE
Prescriptions:
No Action
ondansetron HCl 4 mg Tablet
4 mg PO Q6H PRN (Reason: nausea)
metoprolol succinate 25 mg Tablet Extended Release 24 Hr
25 mg PO DAILY
sertraline [Zoloft] 50 mg Tablet
50 mg PO DAILY
acetaminophen 325 mg Tablet
650 mg PO Q4HPRN PRN (Reason: mild pain/SUN/temp> 100.4F) Qty: 0 0RF
enoxaparin [Lovenox] 80 mg/0.8 mL Syringe
80 mg SC Q12H
metoprolol succinate 50 mg tablet extended release 24 hr
50 mg PO DAILY 14 Days Qty: 14 0RF
ondansetron 4 mg Tablet,Disintegrating
4 mg PO TIDPRN PRN (Reason: nausea/vomiting) Qty: 12 0RF
ondansetron 4 mg tablet,disintegrating
4 mg PO Q8H PRN (Reason: nausea and vomiting) Qty: 10 0RF
Referrals:
Kamala Berman CRNP [Family Provider] -
Stand Alone Forms: Return to Work
Activity Restrictions/Additional Instructions:
It was a pleasure meeting you and taking part in your care. We hope for your continued healing and wellness.
Please read discharge instructions in their entirety. However, they are for general education and may not describe your exact diagnosis at discharge. Information on your ER visit and medical conditions were discussed with you along with appropriate
follow up information...
If indicated, please take your medications as instructed and indicated on discharge paperwork.
Please schedule a follow up appointment as directed. Call to schedule an appointment
Please return to the emergency department with ANY change in, persisting, or worsening of symptoms. If any of your symptoms do not improve, or persist, or become more severe within 6-12 hours, please return to the emergency department for further
care.
Please return to the emergency department if you develop a headache, neck pain/stiffness, fever greater than 100.4F, chest pain, shortness of breath, persistent nausea, vomiting, slurred speech, difficulty walking, numbness/tingling, weakness, signs
of infection or any other symptoms that are worrisome to you.
If you have any questions or concerns please do not hesitate to call the Hospital at or E-mail me directly at [email or web address]
Interventions
Interventions:
*Risk Screen - Suicide Last Done: 08/10/24 19:53
*General Assessment Last Done: 08/11/24 00:05
*Neglect/Abuse Screening Last Done: 08/10/24 19:53
*ED COVID-19 Vaccine History Last Done: 08/11/24 00:05
ED- Cardiac Assessment Last Done: 08/11/24 00:05
ED- Neurological Assessment Last Done: 08/11/24 00:05
ED- Pulmonary Assessment Last Done: 08/11/24 00:05
Discharge Date and Time
Print Language: CROATIAN
[2024-08-11 00:05] VITALS: BMI 31.0
[2024-08-11 00:07] VITALS: BP 132/85
[2024-08-11] MEDS: NSS 1000 IV (00:14)
[2024-08-11 00:26] LABS: Urine Albumin Negative (Neg - Trace); Urine Bilirubin Negative (Negative); Urine Character Clear (Clear); Urine Color Yellow; Urine Glucose Negative (Negative); Urine Ketone Negative (Negative); Urine Leukocyte Negative (Negative); Urine Nitrite Negative (Negative); Urine Occult Blood Negative (Negative); Urine Urobilinogen Negative (Neg - 1+)
[2024-08-11 01:39] VITALS: BP 124/69
== END 2024-08-11 02:55 | disposition home or self-care (01) ==
LOC: EMR 19:40
PROVIDERS: Emergency Medicine; EMERGENCY PHYSICIAN Student in an Organized Health Care Education/Training Program; FAMILY PHYSICIAN Family Medicine
DX: R53.1 Weakness (principal); R42 Dizziness and giddiness
CPT/HCPCS: 96360; 99284; 80053; 81003; 83690; 84484; 84703; 85025; 93005

== ENCOUNTER 2024-08-21 18:07 | Emergency (ER) | payer BC, SELFPAY ==
[2024-08-21 18:13] VITALS: BP 148/107
--- NOTE | 2024-08-21 19:51 | ED.GENMED ---
History of Present Illness
General
Chief Complaint: Facial Problem
Time Seen by Provider: 08/21/24 19:51
History of Present Illness
History of Present Illness:
TIME OF INITIAL ENCOUNTER: 7:55 PM
HPI: The patient presents due to right sided facial paresthesias. She sent her neurologist a picture and the neurologist was concerned for the possibly of Marte's palsy so she was sent here for further evaluation. I did review this picture and it
does appear that her left eyebrow was higher than the right side. She has a history of migraines and has been having headaches over the last several days but currently does not have a headache. She has a general unwell feeling.
EXAM:
GENERAL: Well appearing in no distress
HEENT: Moist oral mucosa
CARDIOVASCULAR: No murmurs, normal heart rate, regular rhythm, No chest wall tenderness
PULMONARY: No respiratory distress, breath sounds are clear and equal
ABDOMEN: Soft with no peritoneal signs, no tenderness
NEUROLOGIC: Excellent strength all extremities, no coordination deficits, there is no upper lid lag, there is no facial asymmetry, there are no sensory deficits
PSYCHIATRIC: Appropriate mental status, normal insight and judgement
EXTREMITIES: Nontender, no edema, moves all extremities equally
SKIN: No rash, no lesions
NUMBER AND COMPLEXITY OF PROBLEMS ADDRESSED AT THE ENCOUNTER
� Chronic conditions affecting care: Migraines, DVT, syncopal events, POTS, PE, PCOS, anxiety/depression
� Acute Exacerbation and/or Progression of Chronic Illness: This is an acute problem
� Differential Diagnosis includes: Nonspecific hemisensory changes, paresthesias, intracranial mass unlikely, CVA unlikely as she has a nonfocal neurologic examination
AMOUNT AND/OR COMPLEXITY OF DATA TO BE REVIEWED AND ANALYZED
� I performed an independent evaluation of and my interpretation is:
EKG:
CT: CT head negative
X-rays:
Laboratory Studies:
Other:
� Review of other/old records: I reviewed records, the patient is had several visits to the ED over the last several years. I saw this patient in 2022 after she was diagnosed with PE and at that time 2 days after initial
diagnosis her D-dimer was low
� Clinical information was obtained by an independent historian: I spoke to at bedside
� Prescriptions/Medications Considered but not given: Considered Valtrex over the patient declines and does not want to risk any potential side of
� Further testing considered but not performed:
RISK OF COMPLICATIONS AND/OR MORBIDITY OR MORTALITY OF PATIENT MANAGEMENT
� Social determinants of health affecting care: Lives at home
� Discussion with other providers:
� Escalation of care including admission/observation vs risk of discharge considered: The patient has a normal neurologic examination however was sent here by the neurologist because of an abnormal picture that was sent to the
neurologist.
ANY OTHER UPDATES:
Unclear etiology of patient's symptoms. CT head negative. Unremarkable neurologic exam. However the patient did take a picture of her self that was somewhat abnormal earlier and sent her to the neurologist who was concerned about the possibly of
Marte's palsy�we have placed her on steroids.
Past History
Past History
ED Past Medical History: Psychiatric (Anxiety, Depression) and Other ( IBS, ovarian cyst, colitis, DVT/PE, C-diff, PCOS, POTS, Migraines, )
ED Past Surgical History: Gynecological (Hymenectomy ) and Orthopedic (Left knee meniscus and MPFO)
Social History
Tobacco: Non-smoker
Alcohol: None
Drug: None
Personal: Single
Living: with roommate
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
Family History
Family History: Other
Phy Exam
Physical Exam
Physical Exam:
See HPI
Course
Orders/Labs/Results
Orders:
Orders
08/21/24 20:00
CT Head W/o Iv Contrast Urgent
Comment:
Reason For Exam: paresthesias right face sent by neuro
08/21/24 20:01
Valacyclovir HCl [Valtrex] 1,000 mg PO NOW STA
08/21/24 20:20
Valacyclovir HCl [Valtrex] 500 mg .ROUTE .STK-MED ONE
Vital Signs
Initial and Last Documented VS:
Initial Vital Signs
Temp Pulse Resp BP Pulse Ox
36.7 C 112 20 148/107 100
08/21/24 18:13 08/21/24 18:13 08/21/24 18:13 08/21/24 18:13 08/21/24 18:13
Last Documented Vital Signs
Temp Pulse Resp BP Pulse Ox
36.7 C 112 20 148/107 100
08/21/24 18:13 08/21/24 18:13 08/21/24 18:13 08/21/24 18:13 08/21/24 18:13
*Critical Care Note
Total Time (30-74mins, 75-104mins- exclusive of procedures): Not Applicable
ED Attending Note
-
Portions of this chart may have been created with voice recognition software.� Occasional wrong word or��sound alike� substitutions may have occurred due to the inherent limitations of voice recognition software.
Discharge Plan
Departure
Patient Disposition: Home (Routine Discharge)
Date of Disposition: 08/21/24
Time of Disposition: 22:53
Patient with high blood pressure during this ER visit?: Yes
Discharge Problem:
Facial paresthesia
Prescriptions:
New
prednisone 50 mg tablet
50 mg PO DAILY Qty: 5 0RF
No Action
ondansetron HCl 4 mg Tablet
4 mg PO Q6H PRN (Reason: nausea)
metoprolol succinate 25 mg Tablet Extended Release 24 Hr
25 mg PO DAILY
sertraline [Zoloft] 50 mg Tablet
50 mg PO DAILY
acetaminophen 325 mg Tablet
650 mg PO Q4HPRN PRN (Reason: mild pain/SUN/temp> 100.4F) Qty: 0 0RF
enoxaparin [Lovenox] 80 mg/0.8 mL Syringe
80 mg SC Q12H
metoprolol succinate 50 mg tablet extended release 24 hr
50 mg PO DAILY 14 Days Qty: 14 0RF
ondansetron 4 mg Tablet,Disintegrating
4 mg PO TIDPRN PRN (Reason: nausea/vomiting) Qty: 12 0RF
ondansetron 4 mg tablet,disintegrating
4 mg PO Q8H PRN (Reason: nausea and vomiting) Qty: 10 0RF
Referrals:
Kamala Berman CRNP [Family Provider] -
Activity Restrictions/Additional Instructions:
The cause of your symptoms is unclear. We can try a course of steroids. Follow-up with Dr. Diallo.
Interventions
Interventions:
*Risk Screen - Suicide Last Done: 08/21/24 18:13
*General Assessment Last Done: 08/21/24 18:13
*Neglect/Abuse Screening Last Done: 08/21/24 18:13
*ED COVID-19 Vaccine History Last Done: 08/21/24 19:56
*Nursing Disposition Last Done: 08/21/24 23:06
ED- Neurological Assessment Last Done: 08/21/24 19:56
ED-Skin Assessment Last Done: 08/21/24 19:56
Discharge Date and Time
Discharge Date/Time: 08/21/24 23:07
Print Language: CZECH
== END 2024-08-21 23:07 | disposition home or self-care (01) ==
LOC: EMR 18:07
PROVIDERS: EMERGENCY PHYSICIAN Emergency Medicine; FAMILY PHYSICIAN Family Medicine
DX: R20.2 Paresthesia of skin (principal); F41.8 Other specified anxiety disorders; K58.9 Irritable bowel syndrome, unspecified; Z86.718 Personal history of other venous thrombosis and embolism; E28.2 Polycystic ovarian syndrome; G90.A Postural orthostatic tachycardia syndrome [POTS]
CPT/HCPCS: 99284; 70450

== ENCOUNTER → 2024-08-24 11:06 | Outpatient (REF) | payer BC, SELFPAY ==
[2024-08-24 11:53] LABS: % Basophils 0.3 % (0-2); % Eosinophils 0.3 % (0-6); % Immature Granulocytes 0.5 % (0-0.5); % Lymphocytes 36.4 % (20.5-51.1); % Monocytes 5.6 % (1.7-9.3); % Neutrophils 56.9 % (42.2-75.2); Absolute Lymphocytes 2.4 10^3/uL (1.2-3.4); Absolute Monocytes 0.4 10^3/uL (0.1-0.6); Absolute Neutrophils 3.7 10^3/uL (1.4-6.5); Hematocrit 43.1 % (37.0-47.0); Hemoglobin 14.4 g/dL (12.0-16.0); Mean Corp Hgb Conc. 33.4 g/dL (33.0-37.0); Mean Corpuscular Hgb 29.6 pg (27.0-31.0); Mean Corpuscular Volume 88.5 fL (81.0-99.0); Mean Platelet Volume 9.2 fL (7.4-10.4); Nucleated Red Blood Cells % 0 %; Platelet Count 337 10^3/uL (130-400); Red Blood Cell Count 4.87 10^6/uL (4.20-5.40); White Blood Cell Count 6.5 10^3/uL (4.8-10.8)
[2024-08-24 11:55] LABS: Ionized Calcium 1.21 mMOL/L (1.15-1.33)
[2024-08-24 12:21] LABS: ALT (SGPT) 34 U/L (0-35); AST (SGOT) 22 U/L (14-36); Albumin 5.2 g/dl (3.5-5.0); Alkaline Phosphatase 67 U/L (38-126); Blood Urea Nitrogen 11 mg/dl (7-17); Calcium 9.8 mg/dl (8.4-10.2); Carbon Dioxide 27 mmol/L (22-30); Chloride 100 mmol/L (98-107); Glucose 92 mg/dl (70-99); Potassium 4.6 mmol/L (3.5-5.1); Sodium 139 mmol/L (135-145); Total Bilirubin 0.4 mg/dl (0.2-1.3); eGFR > 60.00
[2024-08-24 12:45] LABS: Erythrocyte Sed Rate 24 mm/hour (0-20); Vitamin D, 25-OH*** 15.9 ng/mL (30-80)
[2024-08-24 13:18] LABS: Vitamin B12 391 pg/ml (239-931)
[2024-08-25 18:01] LABS: EBV-EA (D) Ab IgG <5.0 U/mL (0.0-10.9); EBV-NA IgG <3.0 U/mL (0.0-21.9); EBV-VCA IgG Antibodies <10.0 U/mL (0.0-21.9); EBV-VCA IgM Antibodies 17.7 U/mL (0.0-43.9)
[2024-08-25 18:37] LABS: Angiotensin-1-converting Enzym 39 U/L (16-85)
[2024-08-26 02:43] LABS: ANA, IgG Reflex to HEp-2 None Detected (None Detected)
[2024-08-26 15:51] LABS: Lyme Antibody Screen, EIA Negative (Negative)
== END ==
LOC: REG 11:06
PROVIDERS: ATTENDING PHYSICIAN Nurse Practitioner Family; FAMILY PHYSICIAN Family Medicine
DX: G51.0 Bell's palsy (principal); E56.9 Vitamin deficiency, unspecified; R20.2 Paresthesia of skin; R29.898 Other symptoms and signs involving the musculoskeletal system; G43.109 Migraine with aura, not intractable, without status migrainosus
CPT/HCPCS: 80053; 82164; 82306; 82330; 82607; 84590; 85025; 85652; 86038; 86140; 86618; 86663; 86664; 86665

== ENCOUNTER → 2024-09-13 08:56 | Outpatient (REF) | payer BC, SELFPAY ==
[2024-09-13 10:40] LABS: HDL Cholesterol 36 mg/dl; Total Cholesterol 307 mg/dl (50-199)
[2024-09-13 10:52] LABS: LDL Cholesterol, Calculated 134 mg/dl; Triglyceride 688 mg/dl (10-149); Very Low Density Lipoprotein 137 mg/dl (0-30)
[2024-09-13 11:14] LABS: LDL Cholesterol, Direct 163 mg/dl
== END ==
LOC: REG 08:56
PROVIDERS: ATTENDING PHYSICIAN Internal Medicine Cardiovascular Disease; FAMILY PHYSICIAN Family Medicine
DX: G90.A Postural orthostatic tachycardia syndrome [POTS] (principal); E78.01 Familial hypercholesterolemia
CPT/HCPCS: 36415; 80061; 83721

== ENCOUNTER 2024-09-28 21:17 | Emergency (ER) | payer BC, SELFPAY ==
[2024-09-28 21:18] VITALS: BP 133/93
[2024-09-28 21:54] LABS: % Basophils 0.2 % (0-2); % Eosinophils 0.8 % (0-6); % Immature Granulocytes 0.3 % (0-0.5); % Lymphocytes 42.2 % (20.5-51.1); % Monocytes 8.8 % (1.7-9.3); % Neutrophils 47.7 % (42.2-75.2); Absolute Eosinophils 0.1 10^3/uL (0-0.7); Absolute Lymphocytes 3.7 10^3/uL (1.2-3.4); Absolute Monocytes 0.8 10^3/uL (0.1-0.6); Absolute Neutrophils 4.2 10^3/uL (1.4-6.5); Hematocrit 38.3 % (37.0-47.0); Hemoglobin 12.8 g/dL (12.0-16.0); Mean Corp Hgb Conc. 33.4 g/dL (33.0-37.0); Mean Corpuscular Volume 89.9 fL (81.0-99.0); Mean Platelet Volume 9.3 fL (7.4-10.4); Nucleated Red Blood Cells % 0 %; Platelet Count 319 10^3/uL (130-400); Red Blood Cell Count 4.26 10^6/uL (4.20-5.40); Red Cell Dist. Width 13.1 % (11.5-14.5); White Blood Cell Count 8.8 10^3/uL (4.8-10.8)
[2024-09-28 22:09] LABS: COVID-19 Antigen Negative (Negative)
[2024-09-28 22:13] LABS: HCG, Serum Qualitative Screen Negative
[2024-09-28 22:17] LABS: ALT (SGPT) 34 U/L (0-35); AST (SGOT) 25 U/L (14-36); Albumin 4.6 g/dl (3.5-5.0); Alkaline Phosphatase 61 U/L (38-126); Blood Urea Nitrogen 12 mg/dl (7-17); Calcium 9.7 mg/dl (8.4-10.2); Carbon Dioxide 25 mmol/L (22-30); Chloride 105 mmol/L (98-107); Glucose 102 mg/dl (70-99); Potassium 4.7 mmol/L (3.5-5.1); Sodium 138 mmol/L (135-145); Total Bilirubin 0.3 mg/dl (0.2-1.3); Total Protein 7.8 g/dl (6.3-8.2); eGFR > 60.00
[2024-09-28 22:19] LABS: Troponin I < 0.012 ng/ml
--- NOTE | 2024-09-29 01:34 | ED.GENMED ---
History of Present Illness
General
Chief Complaint: Dizziness
Source: patient and records
Exam Limitations: none
Time Seen by Provider: 09/29/24 01:17
History of Present Illness
History of Present Illness:
24yoF with a history of PE on Lovenox, POTS, and migraines presenting with her significant other for evaluation of dizziness. Patient has been feeling 'off' and lightheaded over the past few days. Patient took a nap this evening and woke up around
8 PM feeling short of breath. She states she was breathing heavy and her dizziness worsened. She felt like she had to pass out but did not lose consciousness. She took an Ativan before her nap which typically helps but it did not. Due to her
symptoms, she decided to come to the ED. Symptoms have currently subsided and she is feeling much better although is still not feeling normal. She denies any syncope, chest pain, or palpitations. Of note, patient was seen at [facility] [facility] about 2
weeks ago after a syncopal episode.
Past History
Past History
ED Past Medical History: Psychiatric (Anxiety, Depression) and Other ( IBS, ovarian cyst, colitis, DVT/PE, C-diff, PCOS, POTS, Migraines, )
ED Past Surgical History: Gynecological (Hymenectomy ) and Orthopedic (Left knee meniscus and MPFO)
Social History
Tobacco: Non-smoker
Alcohol: None
Drug: None
Personal: Single
Living: with roommate
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
Family History
Family History: Other
Phy Exam
General Physical Exam
General Presentation: well appearing and no apparent distress
General age: appears stated age
General Skin: warm and dry
General Habitus: normal
General Mental: alert
ENT Exam
ENT Exam: normocephalic
Cardiovascular Exam
Cardiovascular Exam: regular rate/rhythm and no murmur
Pulmonary Exam
Pulmonary Exam: lungs clear, no respiratory distress, no rales, no crackles, no rhonchi and no wheezing
Neurological Exam
Neurological Exam: alert
Noemy Coma Scale
Eye Opening: Spontaneous
Verbal Response: Oriented
Motor Response: Obeys Commands
GCS Total Score: 15
Skin Exam
Skin Exam: normal color and warm/dry
Psychiatric Exam
Psychiatric Exam: normal mood/affect
Course
Orders/Labs/Results
Orders:
Orders
09/28/24 21:22
Electrocardiogram (*1) Urgent
Reason for Study: Tachycardia
EKG- Treatment ONCE
Test Result ONCE
09/28/24 21:38
COVID-19 Antigen Urgent
Source: Nasal Swab
Complete Blood Count/With Diff Urgent
Comprehensive Metabolic Panel Urgent
HCG, Serum Qualitative Screen Urgent
Troponin I Urgent
Influenza A+B Rapid Molecular Urgent
MARGARET Source: Nasal Swab
Specimen Description:
09/29/24 01:33
0.9% Sodium Chloride 1000 ml [Nss] 1,000 ml IV BOLUS
Acetaminophen [Tylenol] 650 mg PO NOW STA
09/29/24 02:37
Ondansetron Orally Disint [Zofran Odt (Orally Disintegrating)] 4 mg PO NOW STA
Abnormal Lab Results
09/28/24
21:38
Absolute Lymphs (auto) 3.7 H 10^3/uL
(1.2-3.4)
Absolute Monos (auto) 0.8 H 10^3/uL
(0.1-0.6)
Glucose 102 H mg/dl
(70-99)
09/28/24 21:38
09/28/24 21:38
Vital Signs
Initial and Last Documented VS:
Initial Vital Signs
Temp Pulse Resp BP Pulse Ox
98 F 115 18 133/93 99
09/28/24 21:18 09/28/24 21:18 09/28/24 21:18 09/28/24 21:18 09/28/24 21:18
Last Documented Vital Signs
Temp Pulse Resp BP Pulse Ox
98 F 74 16 110/64 99
09/28/24 21:18 09/29/24 02:42 09/29/24 02:42 09/29/24 02:42 09/29/24 02:42
MDM/Problems Addressed
Differential Diagnosis Includes:
24yoF here with lightheadedness x several days. Dizziness worsened this evening after waking up from a nap. Also had SOB, nausea, shakiness which has subsided. Hx of POTS. No chest pain or syncope. HR 115 in triage. Remainder of vitals are normal.
Exam reassuring. Differential diagnosis includes but is not limited to: arrhythmia, dehydration, anxiety, doubt PE
Initial ED plan: Cardiac labs, COVID/flu swab, HCG, and EKG obtained in triage. Labs unremarkable including normal electrolytes and troponin. EKG shows sinus tachycardia with a HR of 101 without ischemic changes. Very low clinical suspicion for PE
as patient is anticoagulated with Lovenox, shortness of breath has resolved, and oxygen saturation is 98% during exam. Will give IV fluid bolus as this has helped her dizziness in the past. Tylenol for headache.
*EKG
Interpreted by ED Provider?: Yes
EKG Intrepretation Date: 09/28/24
Heart Rate: 101
Rate: tachycardiac
Rhythm: sinus
Plains: normal axis
Interval: normal interval
QRS Pattern: normal QRS
Ischemia: no ischemia
*Critical Care Note
Total Time (30-74mins, 75-104mins- exclusive of procedures): Not Applicable
Update Note
Update Note:
Patient reassessed. No new complaints. Repeat vitals are normal. No indication for hospitalization. Advised f/u with PCP and she has an appt scheduled for next week. She was discharged in stable condition.
ED Attending Note
-
Portions of this chart may have been created with voice recognition software.� Occasional wrong word or��sound alike� substitutions may have occurred due to the inherent limitations of voice recognition software.
Discharge Plan
Departure
Patient Disposition: Home (Routine Discharge)
Date of Disposition: 09/29/24
Time of Disposition: 02:38
Patient with high blood pressure during this ER visit?: No
Discharge Problem:
Lightheadedness
Instructions: Dizziness
Prescriptions:
No Action
ondansetron HCl 4 mg Tablet
4 mg PO Q6H PRN (Reason: nausea)
metoprolol succinate 25 mg Tablet Extended Release 24 Hr
25 mg PO DAILY
sertraline [Zoloft] 50 mg Tablet
50 mg PO DAILY
acetaminophen 325 mg Tablet
650 mg PO Q4HPRN PRN (Reason: mild pain/SUN/temp> 100.4F) Qty: 0 0RF
enoxaparin [Lovenox] 80 mg/0.8 mL Syringe
80 mg SC Q12H
metoprolol succinate 50 mg tablet extended release 24 hr
50 mg PO DAILY 14 Days Qty: 14 0RF
ondansetron 4 mg Tablet,Disintegrating
4 mg PO TIDPRN PRN (Reason: nausea/vomiting) Qty: 12 0RF
ondansetron 4 mg tablet,disintegrating
4 mg PO Q8H PRN (Reason: nausea and vomiting) Qty: 10 0RF
prednisone 50 mg tablet
50 mg PO DAILY Qty: 5 0RF
Referrals:
Damian Velazquez MD [Family Provider] -
Activity Restrictions/Additional Instructions:
Please follow-up with your family doctor. Return to the ER with any new or worsening symptoms.
Interventions
Interventions:
*Risk Screen - Suicide Last Done: 09/28/24 21:18
*General Assessment Last Done: 09/28/24 21:18
*Neglect/Abuse Screening Last Done: 09/28/24 21:18
*Nursing Disposition Last Done: 09/29/24 03:35
ED- Neurological Assessment Last Done: 09/29/24 02:42
ED Swallowing Screen Last Done: 09/29/24 02:42
Discharge Date and Time
Discharge Date/Time: 09/29/24 03:43
Print Language: ARMENIAN
[2024-09-29] MEDS: TYLENOL 650 MG PO (01:47)
[2024-09-29] MEDS: NSS 1000 IV (01:48)
[2024-09-29] MEDS: ZOFRAN ODT (ORALLY DISINTEGRATING) 4 MG PO (02:41)
[2024-09-29 02:42] VITALS: BP 110/64
== END 2024-09-29 03:43 | disposition home or self-care (01) ==
LOC: EMR 21:17
PROVIDERS: Emergency Medicine; EMERGENCY PHYSICIAN Student in an Organized Health Care Education/Training Program; FAMILY PHYSICIAN Internal Medicine
DX: R42 Dizziness and giddiness (principal); Z11.52 Encounter for screening for COVID-19
CPT/HCPCS: 99284; 96360; 80053; 84484; 84703; 85025; 87502; 87811; 93005

== ENCOUNTER 2024-10-17 00:19 | Emergency (ER) | payer BC, SELFPAY ==
[2024-10-17 00:32] VITALS: BP 127/90
[2024-10-17] MEDS: NSS 1000 IV (01:21)
--- NOTE | 2024-10-17 01:22 | ED.GENMED ---
History of Present Illness
General
Chief Complaint: Dizziness
Source: patient and records
Exam Limitations: none
Time Seen by Provider: 10/17/24 00:43
Nursing documentation reviewed up to this point in time: agreed with
History of Present Illness
History of Present Illness:
24-year-old female history of blood clots on Lovenox chronically POTS, on metoprolol and Zofran Zoloft presents with dizziness, zapping feeling in her neck and her head, has not been weaning off her Zoloft, no vomiting, felt vertiginous and dizzy
yesterday, no chest pain or shortness of breath, she been compliant with her meds, no slurred speech, no arm or leg weakness, tells me she is never really had the symptoms before, no abnormal vaginal bleeding, denies
Past History
Past History
ED Past Medical History: Psychiatric (Anxiety, Depression) and Other ( IBS, ovarian cyst, colitis, DVT/PE, C-diff, PCOS, POTS, Migraines, )
ED Past Surgical History: Gynecological (Hymenectomy ) and Orthopedic (Left knee meniscus and MPFO)
Social History
Tobacco: Non-smoker
Alcohol: None
Drug: None
Personal: Single
Living: with roommate
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
Family History
Family History: Other
Review of Systems
Review of Systems
All Other Systems: Not applicable
Constitutional: Reports fatigue; Denies fever
EENT: Reports no symptoms
Respiratory: Reports no symptoms
Cardiac: Reports no symptoms
ABD/GI: Reports nausea; Denies abdominal pain, diarrhea or anorexia
: Reports no symptoms
Musculoskeletal: Reports no symptoms
Neurological: Reports dizzy; Denies headache
Endocrine: Reports no symptoms
Hematologic/Lymphatic: Reports no symptoms
Psychiatric: Reports no symptoms
Phy Exam
Physical Exam
Physical Exam:
Physical Exam
General: 24-year-old female in no acute distress
Neck: No jaundice no tongue bite
Heart: s1/s2 regular rate and rhythm, no murmur. equal radial pulses.
Lungs: no acute respiratory distress. clear bilaterally
Abdomen: Nontender
Neuro: alert and oriented. no focal neurological deficits normal finger-nose
Skin: no rash
Psychiatric: well kept. interactive and cooperative
Extremities: no edema.
Course
Orders/Labs/Results
Orders:
Orders
10/17/24 01:07
0.9% Sodium Chloride 1000 ml [Nss] 1,000 ml IV BOLUS
10/17/24 01:08
Ondansetron Injectable [Zofran] 4 mg IV NOW STA
10/17/24 01:19
Complete Blood Count/With Diff Urgent
Comprehensive Metabolic Panel Urgent
Magnesium Urgent
10/17/24 01:22
Ondansetron Orally Disint [Zofran Odt (Orally Disintegrating)] 4 mg PO NOW STA
10/17/24 01:33
Acetaminophen [Tylenol] 650 mg PO NOW STA
Abnormal Lab Results
10/17/24
01:19
Absolute Lymphs (auto) 4.6 H 10^3/uL
(1.2-3.4)
Neutrophils % 35.2 L %
(42.2-75.2)
Lymphocytes % 55.9 H %
(20.5-51.1)
Chloride 108 H mmol/L
(98-107)
Glucose 100 H mg/dl
(70-99)
10/17/24 01:19
10/17/24 01:19
Vital Signs
Initial and Last Documented VS:
Initial Vital Signs
Temp Pulse Resp BP Pulse Ox
98.6 F 91 15 127/90 100
10/17/24 00:32 10/17/24 00:32 10/17/24 00:32 10/17/24 00:32 10/17/24 00:32
Last Documented Vital Signs
Temp Pulse Resp BP Pulse Ox
98.0 F 82 20 125/58 98
10/17/24 01:24 10/17/24 01:24 10/17/24 01:24 10/17/24 01:24 10/17/24 01:24
MDM/Problems Addressed
Differential Diagnosis Includes:
POTS flare, vertigo nonspecific headache migraine, doubt intracerebral hemorrhage
MDM/Problems Addressed:
Dizziness sharp pain in her neck
Chronic conditions affecting care:
POTS anticoagulation
Chronic conditions affecting care: Neurological disorder and Psychiatric illness
Acute Exacerbation and/or Progression of Chronic Illness:
POTS anticoagulate
Acute Exacerbation and/or Progression of Chronic Illness: Neurological disorder and Psychiatric illness
*Pulse Oximetry
Patient hypoxic: no
*Critical Care Note
Total Time (30-74mins, 75-104mins- exclusive of procedures): Not Applicable
Update Note
Update Note:
Update, old records reviewed she has had greater than 15 CAT scans previously
I do not believe she has significant intracerebral hemorrhage, she has a nonfocal neurologic exam, normal mental status, looks well,
2:30 AM update patient looks well labs noted
ED Attending Note
-
Portions of this chart may have been created with voice recognition software.� Occasional wrong word or��sound alike� substitutions may have occurred due to the inherent limitations of voice recognition software.
Discharge Plan
Departure
Prescriptions:
No Action
ondansetron HCl 4 mg Tablet
4 mg PO Q6H PRN (Reason: nausea)
metoprolol succinate 25 mg Tablet Extended Release 24 Hr
25 mg PO DAILY
sertraline [Zoloft] 50 mg Tablet
50 mg PO DAILY
acetaminophen 325 mg Tablet
650 mg PO Q4HPRN PRN (Reason: mild pain/SUN/temp> 100.4F) Qty: 0 0RF
enoxaparin [Lovenox] 80 mg/0.8 mL Syringe
80 mg SC Q12H
metoprolol succinate 50 mg tablet extended release 24 hr
50 mg PO DAILY 14 Days Qty: 14 0RF
ondansetron 4 mg Tablet,Disintegrating
4 mg PO TIDPRN PRN (Reason: nausea/vomiting) Qty: 12 0RF
ondansetron 4 mg tablet,disintegrating
4 mg PO Q8H PRN (Reason: nausea and vomiting) Qty: 10 0RF
prednisone 50 mg tablet
50 mg PO DAILY Qty: 5 0RF
Referrals:
El Luis MD [Family Provider] -
Interventions
Interventions:
*Risk Screen - Suicide Last Done: 10/17/24 00:32
*General Assessment Last Done: 10/17/24 01:31
*ED- Fall Risk Assessment Last Done: 10/17/24 01:31
*ED COVID-19 Vaccine History Last Done: 10/17/24 01:32
ED- Neurological Assessment Last Done: 10/17/24 01:26
ED Swallowing Screen Last Done: 10/17/24 01:25
Discharge Date and Time
Print Language: KOREAN
[2024-10-17 01:24] VITALS: BP 125/58
[2024-10-17] MEDS: ZOFRAN ODT (ORALLY DISINTEGRATING) 4 MG PO (01:28)
[2024-10-17 01:43] LABS: Hematocrit 38.1 % (37.0-47.0); Mean Corp Hgb Conc. 34.1 g/dL (33.0-37.0); Mean Corpuscular Hgb 29.7 pg (27.0-31.0); Mean Corpuscular Volume 87.2 fL (81.0-99.0); Platelet Count 289 10^3/uL (130-400); Red Blood Cell Count 4.37 10^6/uL (4.20-5.40); Red Cell Dist. Width 13.1 % (11.5-14.5); White Blood Cell Count 8.3 10^3/uL (4.8-10.8)
[2024-10-17 01:49] LABS: ALT (SGPT) 34 U/L (0-35); AST (SGOT) 19 U/L (14-36); Albumin 4.2 g/dl (3.5-5.0); Alkaline Phosphatase 62 U/L (38-126); Blood Urea Nitrogen 12 mg/dl (7-17); Calcium 9.2 mg/dl (8.4-10.2); Carbon Dioxide 23 mmol/L (22-30); Chloride 108 mmol/L (98-107); Glucose 100 mg/dl (70-99); Magnesium 1.9 mg/dl (1.6-2.3); Sodium 140 mmol/L (135-145); Total Bilirubin 0.4 mg/dl (0.2-1.3); Total Protein 7.3 g/dl (6.3-8.2); eGFR > 60.00
[2024-10-17] MEDS: TYLENOL 650 MG PO (01:53)
[2024-10-17 01:54] VITALS: BMI 32.0
[2024-10-17 02:06] LABS: % Basophils 0.4 % (0-2); % Eosinophils 0.8 % (0-6); % Immature Granulocytes 0.4 % (0-0.5); % Lymphocytes 55.9 % (20.5-51.1); % Monocytes 7.3 % (1.7-9.3); % Neutrophils 35.2 % (42.2-75.2); Absolute Eosinophils 0.1 10^3/uL (0-0.7); Absolute Lymphocytes 4.6 10^3/uL (1.2-3.4); Absolute Monocytes 0.6 10^3/uL (0.1-0.6); Absolute Neutrophils 2.9 10^3/uL (1.4-6.5); Nucleated Red Blood Cells % 0 %
== END 2024-10-17 03:14 | disposition home or self-care (01) ==
LOC: EMR 00:19
PROVIDERS: EMERGENCY PHYSICIAN Emergency Medicine; FAMILY PHYSICIAN Family Medicine
DX: R42 Dizziness and giddiness (principal); G90.A Postural orthostatic tachycardia syndrome [POTS]; F41.8 Other specified anxiety disorders
CPT/HCPCS: 99283; 80053; 83735; 85025

== ENCOUNTER 2024-11-05 18:06 | Emergency (ER) | payer BC, SELFPAY ==
[2024-11-05 18:09] VITALS: BP 131/86
[2024-11-05 18:32] LABS: Urine Albumin Negative (Neg - Trace); Urine Bilirubin Negative (Negative); Urine Character Clear (Clear); Urine Color Yellow; Urine Glucose Negative (Negative); Urine Ketone Negative (Negative); Urine Leukocyte Negative (Negative); Urine Nitrite Negative (Negative); Urine Occult Blood 3+ (Negative); Urine Specific Gravity 1.025 (<1.030); Urine Urobilinogen Negative (Neg - 1+)
[2024-11-05 18:34] LABS: % Basophils 0.2 % (0-2); % Eosinophils 0.8 % (0-6); % Immature Granulocytes 0.8 % (0-0.5); % Lymphocytes 43.8 % (20.5-51.1); % Monocytes 7.9 % (1.7-9.3); % Neutrophils 46.5 % (42.2-75.2); Absolute Eosinophils 0.1 10^3/uL (0-0.7); Absolute Immature Granulocytes 0.1 10^3/uL (0-0.05); Absolute Lymphocytes 4.1 10^3/uL (1.2-3.4); Absolute Monocytes 0.7 10^3/uL (0.1-0.6); Absolute Neutrophils 4.3 10^3/uL (1.4-6.5); Hematocrit 37.6 % (37.0-47.0); Mean Corp Hgb Conc. 34.6 g/dL (33.0-37.0); Mean Corpuscular Hgb 29.8 pg (27.0-31.0); Mean Corpuscular Volume 86.2 fL (81.0-99.0); Mean Platelet Volume 9.1 fL (7.4-10.4); Nucleated Red Blood Cells % 0 %; Platelet Count 324 10^3/uL (130-400); Red Blood Cell Count 4.36 10^6/uL (4.20-5.40); Red Cell Dist. Width 13.3 % (11.5-14.5); White Blood Cell Count 9.3 10^3/uL (4.8-10.8)
[2024-11-05 18:41] LABS: HCG, Serum Qualitative Screen Negative
[2024-11-05 18:41] LABS: Urine Bacteria Few (Negative); Urine Red Blood Cell 0-2 /HPF (0-2); Urine White Cell 0-2 /HPF (0-5)
[2024-11-05 18:47] LABS: ALT (SGPT) 31 U/L (0-35); AST (SGOT) 25 U/L (14-36); Albumin 4.4 g/dl (3.5-5.0); Alkaline Phosphatase 58 U/L (38-126); Blood Urea Nitrogen 11 mg/dl (7-17); Calcium 9.9 mg/dl (8.4-10.2); Carbon Dioxide 27 mmol/L (22-30); Chloride 105 mmol/L (98-107); Glucose 93 mg/dl (70-99); Lipase 119 U/L (23-300); Potassium 4.2 mmol/L (3.5-5.1); Sodium 139 mmol/L (135-145); Total Bilirubin 0.4 mg/dl (0.2-1.3); Total Protein 7.9 g/dl (6.3-8.2); eGFR > 60.00
--- NOTE | 2024-11-05 19:45 | ED.GENMED ---
History of Present Illness
General
Chief Complaint: Abdominal Pain
Source: patient
Exam Limitations: none
Time Seen by Provider: 11/05/24 19:36
Nursing documentation reviewed up to this point in time: agreed with
History of Present Illness
History of Present Illness:
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 Patient reports that this started a few days ago. Patient states
that this feels similar to when she had ovarian cyst rupture. Her last menstrual period was on September 04. She does not take any control. She follows with [facility]. She has also had intermittent diarrhea and nausea as well
as a decreased appetite. She denies any fevers or chills. She denies any burning with urination. She denies any vomiting. She denies any chest pain or shortness of breath. She has taken Tylenol with some relief.
Past History
Past History
ED Past Medical History: Psychiatric (Anxiety, Depression) and Other ( IBS, ovarian cyst, colitis, DVT/PE, C-diff, PCOS, POTS, Migraines, )
ED Past Surgical History: Gynecological (Hymenectomy ) and Orthopedic (Left knee meniscus and MPFO)
Social History
Tobacco: Non-smoker
Alcohol: None
Drug: None
Personal: Single
Living: with roommate
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
Family History
Family History: Other
Review of Systems
Review of Systems
All Other Systems: ROS reviewed and negative except as documented in HPI and ROS
Phy Exam
Physical Exam
Physical Exam:
General: Patient is well appearing and in no acute distress; non-toxic
Skin: Warm and dry, no rashes or lesions
Head: Normocephalic, atraumatic
Eyes: Sclera non-icteric. EOMs intact.
Cardiac: Regular rate and rhythm, no murmurs
Pulm: Normal respiratory effort, no wheezes, rales, rhonchi
Abdomen: Left-sided pelvic tenderness to palpation, no palpable mass
Neuro: CN II-XII intact, no focal neurologic deficits.
Psychiatric: Appropriate mood and affect.
Course
Orders/Labs/Results
Orders:
Orders
11/05/24 18:09
Test Result ONCE
11/05/24 18:18
Urinalysis Reflex To Culture Urgent
Date Specimen was Collected: 11/05/24
Time Specimen was Collected: 18:09
Urine Microscopic Reflex Cult Urgent
11/05/24 18:20
Complete Blood Count/With Diff Urgent
Comprehensive Metabolic Panel Urgent
HCG, Serum Qualitative Screen Urgent
Lipase Urgent
11/05/24 19:58
0.9% Sodium Chloride 500 ml [Nss] 500 ml IV BOLUS
Acetaminophen [Tylenol] 1,000 mg PO NOW STA
Pelvis & Transvaginal US [US Pelvis W Transvag Combined] Urgent
Comment:
Reason For Exam: Left sided pelvic pain (attn to flow)
11/05/24 20:11
Acetaminophen [Tylenol] 1,000 mg .ROUTE .STK-MED ONE
Abnormal Lab Results
11/05/24 11/05/24
18:18 18:20
Abs Immat Gran (auto) 0.1 H 10^3/uL
(0-0.05)
Absolute Lymphs (auto) 4.1 H 10^3/uL
(1.2-3.4)
Absolute Monos (auto) 0.7 H 10^3/uL
(0.1-0.6)
Immature Gran % 0.8 H %
(0-0.5)
Ur Occult Blood Reflex 3+ A
(Negative)
Urine Bacteria (Reflex) Few A
(Negative)
11/05/24 18:20
11/05/24 18:20
Vital Signs
Initial and Last Documented VS:
Initial Vital Signs
Temp Pulse Resp BP Pulse Ox
98.2 F 82 20 131/86 100
11/05/24 18:09 11/05/24 18:09 11/05/24 18:09 11/05/24 18:09 11/05/24 18:09
Last Documented Vital Signs
Temp Pulse Resp BP Pulse Ox
98.2 F 82 20 115/73 98
11/05/24 18:09 11/05/24 23:10 11/05/24 18:09 11/05/24 23:10 11/05/24 23:10
MDM/Problems Addressed
Differential Diagnosis Includes:
Differentials include ovarian torsion, ovarian cyst rupture, ovarian mass, urinary tract infection
MDM/Problems Addressed:
24-year-old female with past medical history of PCOS presents emergency department today with concerns of left-sided pelvic pain. She has had this for past few days. On physical exam she is well-appearing in no acute distress she is afebrile. She
is not . Her urinalysis is not concerning for infection. Her ultrasound shows a 5.7 cm hemorrhagic ovarian cyst with normal flow. Considering patient has constant pain, and is well-appearing on exam, my suspicion for ovarian torsion at
this time is low. Advised patient to return to emergency department should she have an acute worsening of her symptoms or get severe pain with nausea and vomiting. Patient does have a follow-up with her CUSHION PADDER with Erin on November 10 3 worst.
Patient stable for discharge.
Chronic conditions affecting care:
PCOS
*Pulse Oximetry
Patient hypoxic: no
*Critical Care Note
Total Time (30-74mins, 75-104mins- exclusive of procedures): Not Applicable
Data Reviewed
Review of Other/Old Records Reveals: Records (Reviewed ER physician documentation from 10/17/2024 patient seen for dizziness)
Source: patient
Patient Management
Escalation/DeEscalation of care consider admission/obs:
Admit not indicated, patient stable for discharge
ED Attending Note
-
Portions of this chart may have been created with voice recognition software.� Occasional wrong word or��sound alike� substitutions may have occurred due to the inherent limitations of voice recognition software.
Discharge Plan
Departure
Patient Disposition: Home (Routine Discharge)
Date of Disposition: 11/05/24
Time of Disposition: 22:43
Patient with high blood pressure during this ER visit?: Yes
Condition: Good
Discharge Problem:
Hemorrhagic cyst of left ovary, Pelvic pain
Instructions: Ovarian cyst - ED discharge instructions, BLOOD PRESSURE
Prescriptions:
No Action
ondansetron HCl 4 mg Tablet
4 mg PO Q6H PRN (Reason: nausea)
metoprolol succinate 25 mg Tablet Extended Release 24 Hr
25 mg PO DAILY
sertraline [Zoloft] 50 mg Tablet
50 mg PO DAILY
acetaminophen 325 mg Tablet
650 mg PO Q4HPRN PRN (Reason: mild pain/SUN/temp> 100.4F) Qty: 0 0RF
enoxaparin [Lovenox] 80 mg/0.8 mL Syringe
80 mg SC Q12H
metoprolol succinate 50 mg tablet extended release 24 hr
50 mg PO DAILY 14 Days Qty: 14 0RF
ondansetron 4 mg Tablet,Disintegrating
4 mg PO TIDPRN PRN (Reason: nausea/vomiting) Qty: 12 0RF
ondansetron 4 mg tablet,disintegrating
4 mg PO Q8H PRN (Reason: nausea and vomiting) Qty: 10 0RF
prednisone 50 mg tablet
50 mg PO DAILY Qty: 5 0RF
Referrals:
Tamra Erazo MD [Active] - Call in 1-3 days for appt
El Luis MD [Family Provider] -
Activity Restrictions/Additional Instructions:
Your ultrasound revealed a complex cyst to the left ovary likely representing a hemorrhagic cyst. It is 5.7 cm in size. Is important that you follow-up with your ORTHOPEDIC ASSISTANT in 6 to 8 weeks for repeat ultrasound.
PLEASE RETURN EMERGENCY DEPARTMENT SHOULD SHE DEVELOP AN ACUTE WORSENING OF YOUR PAIN, LIGHTHEADEDNESS, DIZZINESS, INTERMITTENT SEVERE PAIN, FAINTING SPELLS, CHEST PAIN, SHORTNESS OF BREATH, INTRACTABLE NAUSEA OR VOMITING, OR ANY OTHER SIGNS OR
SYMPTOMS WORRISOME TO YOU.
Interventions
Interventions:
*Risk Screen - Suicide Last Done: 11/05/24 18:09
*General Assessment Last Done: 11/05/24 18:09
*Neglect/Abuse Screening Last Done: 11/05/24 21:31
*ED- Fall Risk Assessment Last Done: 11/05/24 23:15
*ED COVID-19 Vaccine History Last Done: 11/05/24 21:31
*Nursing Disposition Last Done: 11/05/24 23:15
VO-Jqautt-Lmoamujsyn Assessment Last Done: 11/05/24 21:32
Discharge Date and Time
Discharge Date/Time: 11/05/24 23:15
Print Language: MALAY
[2024-11-05] MEDS: NSS 500 IV (20:13)
[2024-11-05] MEDS: TYLENOL 1000 MG PO (20:13)
[2024-11-05 21:31] VITALS: BP 135/79
[2024-11-05 23:10] VITALS: BP 115/73
== END 2024-11-05 23:15 | disposition home or self-care (01) ==
LOC: EMR 18:06
PROVIDERS: Emergency Medicine; EMERGENCY PHYSICIAN Student in an Organized Health Care Education/Training Program; FAMILY PHYSICIAN Family Medicine
DX: N83.202 Unspecified ovarian cyst, left side (principal); R10.2 Pelvic and perineal pain
CPT/HCPCS: 99284; 96360; 76830; 76856; 80053; 81003; 81015; 83690; 84703; 85025

== ENCOUNTER 2024-11-08 10:38 | Emergency (ER) | payer BC, SELFPAY ==
[2024-11-08 10:43] VITALS: BP 138/100
[2024-11-08 10:50] VITALS: BP 138/100
[2024-11-08 11:21] LABS: % Basophils 0.3 % (0-2); % Eosinophils 0.7 % (0-6); % Immature Granulocytes 0.7 % (0-0.5); % Lymphocytes 27.8 % (20.5-51.1); % Neutrophils 62.5 % (42.2-75.2); Absolute Eosinophils 0.1 10^3/uL (0-0.7); Absolute Immature Granulocytes 0.1 10^3/uL (0-0.05); Absolute Lymphocytes 1.9 10^3/uL (1.2-3.4); Absolute Monocytes 0.6 10^3/uL (0.1-0.6); Absolute Neutrophils 4.3 10^3/uL (1.4-6.5); Hematocrit 40.2 % (37.0-47.0); Hemoglobin 13.4 g/dL (12.0-16.0); Mean Corp Hgb Conc. 33.3 g/dL (33.0-37.0); Mean Corpuscular Hgb 29.1 pg (27.0-31.0); Mean Corpuscular Volume 87.4 fL (81.0-99.0); Mean Platelet Volume 8.9 fL (7.4-10.4); Nucleated Red Blood Cells % 0 %; Platelet Count 307 10^3/uL (130-400); Red Cell Dist. Width 13.3 % (11.5-14.5); White Blood Cell Count 6.9 10^3/uL (4.8-10.8)
[2024-11-08 11:35] LABS: ALT (SGPT) 29 U/L (0-35); AST (SGOT) 21 U/L (14-36); Albumin 4.4 g/dl (3.5-5.0); Alkaline Phosphatase 61 U/L (38-126); Blood Urea Nitrogen 12 mg/dl (7-17); Calcium 9.8 mg/dl (8.4-10.2); Carbon Dioxide 25 mmol/L (22-30); Chloride 105 mmol/L (98-107); Glucose 98 mg/dl (70-99); Potassium 4.8 mmol/L (3.5-5.1); Sodium 140 mmol/L (135-145); Total Bilirubin 0.3 mg/dl (0.2-1.3); eGFR > 60.00
[2024-11-08 12:15] VITALS: BP 124/85
--- NOTE | 2024-11-08 12:23 | ED.GENMED ---
History of Present Illness
General
Chief Complaint: Heart Rate Problem
Source: patient
Time Seen by Provider: 11/08/24 12:14
History of Present Illness
History of Present Illness:
24-year-old female presents with onset of weakness shakiness and nausea this morning. She felt a fluttering sensation in her chest. She does have a history of pulmonary embolism and takes Lovenox twice a day. She has a history of POTS as well.
No chest pain. She was here recently and diagnosed with a left sided ovarian cyst however the pain from that has significantly improved since its onset. No fever. She initially thought she had a low blood sugar episode as she is prediabetic and
she had something to eat but did not notice any significant change. No other complaints at this time
Past History
Past History
ED Past Medical History: Psychiatric (Anxiety, Depression) and Other ( IBS, ovarian cyst, colitis, DVT/PE, C-diff, PCOS, POTS, Migraines, )
ED Past Surgical History: Gynecological (Hymenectomy ) and Orthopedic (Left knee meniscus and MPFO)
Social History
Tobacco: Non-smoker
Alcohol: None
Drug: None
Personal: Single
Living: with roommate
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
Family History
Family History: Other
Phy Exam
Physical Exam
Physical Exam:
General: Well-appearing female no acute respiratory distress
HEENT: Normocephalic mucosa dry neck is supple
Heart: Regular rate and rhythm
Lungs: Clear no wheeze
Abdomen is soft nontender nondistended
Extremities: No cyanosis
Course
Orders/Labs/Results
Orders:
Orders
11/08/24 10:55
Electrocardiogram (*1) Urgent
Reason for Study: Bradycardia / Tachycardia
EKG- Treatment ONCE
11/08/24 11:03
Complete Blood Count/With Diff Urgent
Comprehensive Metabolic Panel Urgent
HCG, Serum Qualitative Screen Urgent
Comment: ADD ON
11/08/24 12:22
0.9% Sodium Chloride 1000 ml [Nss] 1,000 ml IV BOLUS
Ondansetron Orally Disint [Zofran Odt (Orally Disintegrating)] 4 mg PO NOW STA
11/08/24 12:24
Add On- LAB Urgent
Tests Added?: hcg
Abnormal Lab Results
11/08/24
11:03
Abs Immat Gran (auto) 0.1 H 10^3/uL
(0-0.05)
Immature Gran % 0.7 H %
(0-0.5)
11/08/24 11:03
11/08/24 11:03
Vital Signs
Initial and Last Documented VS:
Initial Vital Signs
Temp Pulse Resp BP Pulse Ox
98.7 F 91 22 138/100 99
11/08/24 10:43 11/08/24 10:43 11/08/24 10:43 11/08/24 10:43 11/08/24 10:43
Last Documented Vital Signs
Temp Pulse Resp BP Pulse Ox
98.0 F 81 18 119/71 100
11/08/24 10:50 11/08/24 13:30 11/08/24 13:30 11/08/24 13:00 11/08/24 13:30
MDM/Problems Addressed
Differential Diagnosis Includes:
Patient with weakness and shakiness. Unclear etiology. Consider hypoglycemic episode versus electrolyte abnormality versus viral illness versus arrhythmia EKG shows sinus rhythm without any ischemic changes. Will place on monitor. Reviewed labs
with normal chemistry and blood count. Patient does appear somewhat dry on exam. Give Zofran and hydrate
*Critical Care Note
Total Time (30-74mins, 75-104mins- exclusive of procedures): Not Applicable
Update Note
Update Note:
Patient reevaluated feeling much better after fluids and Zofran. Color has improved hydration status improved. She has been ambulatory. Labs unrevealing. Suspect volume depletion. No indication for admission. Stable for discharge
ED Attending Note
-
Portions of this chart may have been created with voice recognition software.� Occasional wrong word or��sound alike� substitutions may have occurred due to the inherent limitations of voice recognition software.
Discharge Plan
Departure
Patient Disposition: Home (Routine Discharge)
Date of Disposition: 11/08/24
Time of Disposition: 15:41
Patient with high blood pressure during this ER visit?: No
Discharge Problem:
Weakness
Instructions: Palpitations (DC)
Prescriptions:
No Action
ondansetron HCl 4 mg Tablet
4 mg PO Q6H PRN (Reason: nausea)
metoprolol succinate 25 mg Tablet Extended Release 24 Hr
25 mg PO DAILY
sertraline [Zoloft] 50 mg Tablet
50 mg PO DAILY
acetaminophen 325 mg Tablet
650 mg PO Q4HPRN PRN (Reason: mild pain/SUN/temp> 100.4F) Qty: 0 0RF
enoxaparin [Lovenox] 80 mg/0.8 mL Syringe
80 mg SC Q12H
metoprolol succinate 50 mg tablet extended release 24 hr
50 mg PO DAILY 14 Days Qty: 14 0RF
ondansetron 4 mg Tablet,Disintegrating
4 mg PO TIDPRN PRN (Reason: nausea/vomiting) Qty: 12 0RF
ondansetron 4 mg tablet,disintegrating
4 mg PO Q8H PRN (Reason: nausea and vomiting) Qty: 10 0RF
prednisone 50 mg tablet
50 mg PO DAILY Qty: 5 0RF
Referrals:
El Luis MD [Family Provider] -
Activity Restrictions/Additional Instructions:
Stay hydrated. Return for worsening symptoms otherwise follow-up with your doctor
Interventions
Interventions:
*Risk Screen - Suicide Last Done: 11/08/24 10:50
*General Assessment Last Done: 11/08/24 11:53
*Neglect/Abuse Screening Last Done: 11/08/24 10:50
*ED- Fall Risk Assessment Last Done: 11/08/24 11:53
*ED COVID-19 Vaccine History Last Done: 11/08/24 11:53
ED- Cardiac Assessment Last Done: 11/08/24 11:54
ED- Pulmonary Assessment Last Done: 11/08/24 11:54
Discharge Date and Time
Print Language: MARTINIQUAIS
[2024-11-08] MEDS: NSS 1000 IV (12:24)
[2024-11-08] MEDS: ZOFRAN ODT (ORALLY DISINTEGRATING) 4 MG PO (12:24)
[2024-11-08 13:00] VITALS: BP 119/71
[2024-11-08 13:21] LABS: HCG, Serum Qualitative Screen Negative
[2024-11-08 14:00] VITALS: BP 117/61
== END 2024-11-08 16:14 | disposition home or self-care (01) ==
LOC: EMR 10:38
PROVIDERS: Emergency Medicine; EMERGENCY PHYSICIAN Emergency Medicine; FAMILY PHYSICIAN Family Medicine
DX: R53.1 Weakness (principal); R11.0 Nausea; G90.A Postural orthostatic tachycardia syndrome [POTS]; F41.8 Other specified anxiety disorders; K58.9 Irritable bowel syndrome, unspecified; E28.2 Polycystic ovarian syndrome; Z86.711 Personal history of pulmonary embolism; Z86.718 Personal history of other venous thrombosis and embolism
CPT/HCPCS: 99283; 96360; 80053; 84703; 85025; 93005

== ENCOUNTER → 2024-12-13 14:30 | Outpatient (REF) | payer BC, SELFPAY ==
[2024-12-13 15:22] LABS: D-Dimer 0.29 ug/mlFEU (0.00-0.50)
== END ==
LOC: REG 14:30
PROVIDERS: ATTENDING PHYSICIAN Internal Medicine Hematology & Oncology; FAMILY PHYSICIAN Family Medicine
DX: I82.4Z2 Acute embolism and thrombosis of unspecified deep veins of left distal lower extremity (principal); I26.99 Other pulmonary embolism without acute cor pulmonale
CPT/HCPCS: 36415; 85379

== ENCOUNTER 2025-01-01 21:18 | Emergency (ER) | payer BC, SELFPAY ==
[2025-01-01 21:19] VITALS: BP 133/89
--- NOTE | 2025-01-01 23:38 | ED.GENMED ---
History of Present Illness
General
Chief Complaint: Musculo-Skeletal Complaint
Source: patient
Exam Limitations: none
Time Seen by Provider: 01/01/25 22:26
Nursing documentation reviewed up to this point in time: agreed with
History of Present Illness
History of Present Illness:
Patient presents to ED secondary to worsening right wrist pain over the past 3 days. 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 Denies direct trauma. Denies loss of sensation or weakness. Denies
fever. Denies previous history of similar symptoms. Patient has an appointment with hand surgeon tomorrow afternoon.
Past History
Past History
ED Past Medical History: Psychiatric (Anxiety, Depression) and Other ( IBS, ovarian cyst, colitis, DVT/PE, C-diff, PCOS, POTS, Migraines, )
ED Past Surgical History: Gynecological (Hymenectomy ) and Orthopedic (Left knee meniscus and MPFO)
Social History
Tobacco: Non-smoker
Alcohol: None
Drug: None
Personal: Single
Living: with roommate
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
Family History
Family History: Other
Review of Systems
Review of Systems
Allergies reviewed?: Yes
All Other Systems: ROS reviewed and negative except as documented in HPI and ROS
Constitutional: Reports no symptoms
Musculoskeletal: Reports other (wrist pain)
Skin: Reports no symptoms
Neurological: Reports no symptoms; Denies weakness or numbness
Phy Exam
Physical Exam
Physical Exam:
Physical Exam
General: no apparent distress, not acutely ill. afebrile
Head: nc/at. eomi
Neck: supple. normal range of motion.
Neuro: alert and oriented x 3. no focal neurological deficits
Skin: no rash
Psychiatric: well kept. interactive and cooperative
Extremities: mild right wrist pain along medial aspect, exacerbated with extension. no erythema/warmth/ecchymosis/swelling noted.
Course
Orders/Labs/Results
Orders:
Orders
01/01/25 23:25
0.9% Sodium Chloride 1000 ml [Nss] 1,000 ml IV BOLUS
01/01/25 23:[address] Non Medication Order As Directed
Physician Order: Velcro wrist splint
Above order entered?: Yes
Vital Signs
Initial and Last Documented VS:
Initial Vital Signs
Temp Pulse Resp BP Pulse Ox
98.5 F 91 18 133/89 98
01/01/25 21:19 01/01/25 21:19 01/01/25 21:19 01/01/25 21:19 01/01/25 21:19
Last Documented Vital Signs
Temp Pulse Resp BP Pulse Ox
98.1 F 76 14 130/81 98
01/01/25 23:39 01/02/25 01:19 01/02/25 01:19 01/02/25 01:19 01/02/25 01:19
MDM/Problems Addressed
MDM/Problems Addressed:
History and exam concerning for possible carpal tunnel syndrome. No indication for any imaging studies at this time. Patient will follow-up with hand surgeon tomorrow afternoon, as already scheduled, for further evaluation and treatment. In the
meantime, patient will be provided with a Velcro wrist splint for symptomatic treatment.
Prior to discharge, patient with history of POTS, requests IV fluids, as she has not been able to drink much fluids today and has had multiple episodes of syncope. As patient has had extensive workup for this particular symptom, patient does agree
that no further workup is necessary at this time.
*Critical Care Note
Total Time (30-74mins, 75-104mins- exclusive of procedures): Not Applicable
ED Attending Note
-
Portions of this chart may have been created with voice recognition software.� Occasional wrong word or��sound alike� substitutions may have occurred due to the inherent limitations of voice recognition software.
Discharge Plan
Departure
Patient Disposition: Home (Routine Discharge)
Date of Disposition: 01/01/25
Time of Disposition: 23:43
Patient with high blood pressure during this ER visit?: Yes
Discharge Problem:
Pain, wrist
Instructions: Overuse Injuries (DC)
Prescriptions:
No Action
ondansetron HCl 4 mg Tablet
4 mg PO Q6H PRN (Reason: nausea)
metoprolol succinate 25 mg Tablet Extended Release 24 Hr
25 mg PO DAILY
sertraline [Zoloft] 50 mg Tablet
50 mg PO DAILY
acetaminophen 325 mg Tablet
650 mg PO Q4HPRN PRN (Reason: mild pain/SUN/temp> 100.4F) Qty: 0 0RF
enoxaparin [Lovenox] 80 mg/0.8 mL Syringe
80 mg SC Q12H
metoprolol succinate 50 mg tablet extended release 24 hr
50 mg PO DAILY 14 Days Qty: 14 0RF
ondansetron 4 mg Tablet,Disintegrating
4 mg PO TIDPRN PRN (Reason: nausea/vomiting) Qty: 12 0RF
ondansetron 4 mg tablet,disintegrating
4 mg PO Q8H PRN (Reason: nausea and vomiting) Qty: 10 0RF
prednisone 50 mg tablet
50 mg PO DAILY Qty: 5 0RF
Referrals:
Jennifer Jackson MD [Family Provider] -
Clint Mercado MD [Active] -
Stand Alone Forms: Return to Work
Activity Restrictions/Additional Instructions:
As discussed, please follow-up with your hand surgeon as scheduled tomorrow for further evaluation and treatment.
Interventions
Interventions:
*Risk Screen - Suicide Last Done: 01/01/25 21:19
*General Assessment Last Done: 01/01/25 21:19
*Neglect/Abuse Screening Last Done: 01/01/25 21:19
*ED- Fall Risk Assessment Last Done: 01/01/25 21:19
*ED COVID-19 Vaccine History Last Done: 01/01/25 21:19
*Nursing Disposition Last Done: 01/02/25 01:05
ED-Musculoskeletal Assessment Last Done: 01/01/25 22:58
Discharge Date and Time
Discharge Date/Time: 01/02/25 01:05
Print Language: BULGARIAN
[2025-01-01 23:39] VITALS: BP 123/75
[2025-01-01] MEDS: NSS 1000 IV (23:52)
[2025-01-02 01:19] VITALS: BP 130/81
== END 2025-01-02 01:05 | disposition home or self-care (01) ==
LOC: EMR 21:18
PROVIDERS: EMERGENCY PHYSICIAN Emergency Medicine; FAMILY PHYSICIAN Family Medicine
DX: M25.531 Pain in right wrist (principal); G90.A Postural orthostatic tachycardia syndrome [POTS]; Z86.718 Personal history of other venous thrombosis and embolism
CPT/HCPCS: 96360; 99284

== ENCOUNTER 2025-01-29 07:25 | Emergency (ER) | payer BC, SELFPAY ==
[2025-01-29 07:27] VITALS: BP 132/84
[2025-01-29 08:01] LABS: Hematocrit 38.7 % (37.0-47.0); Hemoglobin 13.3 g/dL (12.0-16.0); Mean Corp Hgb Conc. 34.4 g/dL (33.0-37.0); Mean Corpuscular Hgb 29.8 pg (27.0-31.0); Mean Corpuscular Volume 86.6 fL (81.0-99.0); Mean Platelet Volume 9.2 fL (7.4-10.4); Platelet Count 307 10^3/uL (130-400); Red Blood Cell Count 4.47 10^6/uL (4.20-5.40); Red Cell Dist. Width 12.7 % (11.5-14.5); White Blood Cell Count 5.7 10^3/uL (4.8-10.8)
[2025-01-29 08:06] LABS: HCG, Serum Qualitative Screen Negative
[2025-01-29 08:14] LABS: ALT (SGPT) 33 U/L (0-35); AST (SGOT) 20 U/L (14-36); Albumin 4.6 g/dl (3.5-5.0); Alkaline Phosphatase 56 U/L (38-126); Blood Urea Nitrogen 13 mg/dl (7-17); Calcium 9.6 mg/dl (8.4-10.2); Carbon Dioxide 24 mmol/L (22-30); Chloride 108 mmol/L (98-107); Glucose 104 mg/dl (70-99); Potassium 4.5 mmol/L (3.5-5.1); Sodium 138 mmol/L (135-145); Total Bilirubin 0.3 mg/dl (0.2-1.3); Total Protein 7.9 g/dl (6.3-8.2); eGFR > 60.00
[2025-01-29 08:18] VITALS: BP 121/62
--- NOTE | 2025-01-29 08:23 | ED.GENMED ---
History of Present Illness
General
Chief Complaint: Dizziness
Time Seen by Provider: 01/29/25 08:13
History of Present Illness
History of Present Illness:
24-year-old female history of POTS, prior PE, and PCOS presents to the emergency department for evaluation of acute onset of dizziness while driving to work. States that it feels similar to an episode of POTS however much more severe. Currently
she is maintained on 25 mg of metoprolol daily for this and has been compliant with her meds. Symptoms have since resolved upon arrival. She states that she typically goes for outpatient IV fluid infusions once weekly to prevent these flareups
however missed her routine last week. No current chest pain or dyspnea. Denies any illicit substance use. Notes that she previously did not tolerate up titration of metoprolol
Past History
Past History
ED Past Medical History: Psychiatric (Anxiety, Depression) and Other ( IBS, ovarian cyst, colitis, DVT/PE, C-diff, PCOS, POTS, Migraines, )
ED Past Surgical History: Gynecological (Hymenectomy ) and Orthopedic (Left knee meniscus and MPFO)
Social History
Tobacco: Non-smoker
Alcohol: None
Drug: None
Personal: Single
Living: with roommate
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
Family History
Family History: Other
Review of Systems
Review of Systems
Allergies reviewed?: Yes
All Other Systems: ROS reviewed and negative except as documented in HPI and ROS
Phy Exam
Physical Exam
Physical Exam:
GEN: Well appearing, NAD, WDWN
HEENT: Oral mucosa moist, no scleral icterus
Cardiac: Regular rate and rhythm, no murmurs
Lung: No respiratory distress, no tachypnea
MSK: No gross deformity or injuries
Skin: Good color, no pallor or jaundice, no rashes
Neuro: AO x3, moves all extremities freely
Psych: Calm, cooperative
Course
Orders/Labs/Results
Orders:
Orders
01/29/25 07:42
Test Result ONCE
01/29/25 07:43
ECG [Electrocardiogram (*1)] Urgent
Reason for Study: Vertigo / Dizzy
EKG- Treatment ONCE
01/29/25 07:44
Complete Blood Count/With Diff Urgent
Comprehensive Metabolic Panel Urgent
HCG, Serum Qualitative Screen Urgent
01/29/25 08:25
Orthostatic VS- Treatment ONCE
Abnormal Lab Results
01/29/25
07:44
Chloride 108 H mmol/L
(98-107)
Glucose 104 H mg/dl
(70-99)
01/29/25 07:44
01/29/25 07:44
Vital Signs
Initial and Last Documented VS:
Initial Vital Signs
Temp Pulse Resp BP Pulse Ox
98.4 F 83 18 132/84 100
01/29/25 07:27 01/29/25 07:27 01/29/25 07:27 01/29/25 07:27 01/29/25 07:27
Last Documented Vital Signs
Temp Pulse Resp BP Pulse Ox
98.4 F 83 13 131/81 100
01/29/25 07:27 01/29/25 08:49 01/29/25 08:49 01/29/25 08:49 01/29/25 08:46
MDM/Problems Addressed
MDM/Problems Addressed:
EKG independently interpreted by me shows normal sinus rhythm with no ST changes concerning for ischemia
Symptoms are most likely due to her known underlying history of POTS. Patient also does have substantial anxiety history. She is mildly orthostatic here, given IV fluids which typically benefits her. She did not previously tolerate up titration
of beta-blockers thus will defer this management decision to her primary or hospital manager
*Pulse Oximetry
SaO2: 100
Oxygen Mode of Delivery: Room air
Patient hypoxic: no
*Critical Care Note
Total Time (30-74mins, 75-104mins- exclusive of procedures): Not Applicable
ED Attending Note
-
Portions of this chart may have been created with voice recognition software.� Occasional wrong word or��sound alike� substitutions may have occurred due to the inherent limitations of voice recognition software.
Discharge Plan
Departure
Patient Disposition: Home (Routine Discharge)
Date of Disposition: 01/29/25
Time of Disposition: 09:05
Patient with high blood pressure during this ER visit?: No
Discharge Problem:
POTS (postural orthostatic tachycardia syndrome)
Instructions: Orthostatic hypotension
Prescriptions:
No Action
ondansetron HCl 4 mg Tablet
4 mg PO Q6H PRN (Reason: nausea)
metoprolol succinate 25 mg Tablet Extended Release 24 Hr
25 mg PO DAILY
sertraline [Zoloft] 50 mg Tablet
50 mg PO DAILY
acetaminophen 325 mg Tablet
650 mg PO Q4HPRN PRN (Reason: mild pain/SUN/temp> 100.4F) Qty: 0 0RF
enoxaparin [Lovenox] 80 mg/0.8 mL Syringe
80 mg SC Q12H
metoprolol succinate 50 mg tablet extended release 24 hr
50 mg PO DAILY 14 Days Qty: 14 0RF
ondansetron 4 mg Tablet,Disintegrating
4 mg PO TIDPRN PRN (Reason: nausea/vomiting) Qty: 12 0RF
ondansetron 4 mg tablet,disintegrating
4 mg PO Q8H PRN (Reason: nausea and vomiting) Qty: 10 0RF
prednisone 50 mg tablet
50 mg PO DAILY Qty: 5 0RF
Referrals:
Jennifer Jackson MD [Family Provider, Family Practice]
Activity Restrictions/Additional Instructions:
Try Vitamin C, B12, D and/or magnesium supplements. These are low risk but may provide some benefit in reducing your POTS symptoms
Interventions
Interventions:
*Risk Screen - Suicide Last Done: 01/29/25 07:27
*General Assessment Last Done: 01/29/25 07:27
*Neglect/Abuse Screening Last Done: 01/29/25 08:58
*ED- Fall Risk Assessment Last Done: 01/29/25 08:58
*ED COVID-19 Vaccine History Last Done: 01/29/25 08:58
*Nursing Disposition Last Done: 01/29/25 09:30
ED- Neurological Assessment Last Done: 01/29/25 08:05
ED- Cardiac Assessment Last Done: 01/29/25 08:05
ED Swallowing Screen Last Done: 01/29/25 08:05
Discharge Date and Time
Discharge Date/Time: 01/29/25 09:30
Print Language: TRINIDADIAN
[2025-01-29 08:46] VITALS: BP 117/73
[2025-01-29 08:47] VITALS: BP 129/70
[2025-01-29 08:49] VITALS: BP 131/81
[2025-01-29 08:51] VITALS: BP 117/73; BP 129/70; BP 131/81; PULSE 108; PULSE 70; PULSE 99
[2025-01-29 11:25] LABS: % Basophils 0.3 % (0-2); % Eosinophils 1.2 % (0-6); % Immature Granulocytes 0.5 % (0-0.5); % Lymphocytes 50.7 % (20.5-51.1); % Monocytes 8.9 % (1.7-9.3); % Neutrophils 38.4 % (42.2-75.2); Absolute Eosinophils 0.1 10^3/uL (0-0.7); Absolute Lymphocytes 2.9 10^3/uL (1.2-3.4); Absolute Monocytes 0.5 10^3/uL (0.1-0.6); Absolute Neutrophils 2.2 10^3/uL (1.4-6.5); Nucleated Red Blood Cells % 0 %
== END 2025-01-29 09:30 | disposition home or self-care (01) ==
LOC: EMR 07:25
PROVIDERS: Emergency Medicine; EMERGENCY PHYSICIAN Emergency Medicine; FAMILY PHYSICIAN Family Medicine
DX: G90.A Postural orthostatic tachycardia syndrome [POTS] (principal); E28.2 Polycystic ovarian syndrome; F41.8 Other specified anxiety disorders; K58.9 Irritable bowel syndrome, unspecified; Z79.899 Other long term (current) drug therapy; Z86.711 Personal history of pulmonary embolism; Z86.718 Personal history of other venous thrombosis and embolism
CPT/HCPCS: 99283; 80053; 84703; 85025; 93005

== ENCOUNTER 2025-02-05 18:25 | Emergency (ER) | payer BC, SELFPAY ==
[2025-02-05 18:36] VITALS: BP 142/102
[2025-02-05 19:08] LABS: HCG, Serum Qualitative Screen Negative
[2025-02-05 19:15] LABS: Hematocrit 41.1 % (37.0-47.0); Mean Corp Hgb Conc. 34.1 g/dL (33.0-37.0); Mean Corpuscular Hgb 29.2 pg (27.0-31.0); Mean Corpuscular Volume 85.8 fL (81.0-99.0); Platelet Count 322 10^3/uL (130-400); Red Blood Cell Count 4.79 10^6/uL (4.20-5.40); Red Cell Dist. Width 12.9 % (11.5-14.5); White Blood Cell Count 6.8 10^3/uL (4.8-10.8)
[2025-02-05 19:16] LABS: ALT (SGPT) 27 U/L (0-35); AST (SGOT) 19 U/L (14-36); Albumin 4.7 g/dl (3.5-5.0); Alkaline Phosphatase 50 U/L (38-126); Blood Urea Nitrogen 16 mg/dl (7-17); Calcium 9.9 mg/dl (8.4-10.2); Carbon Dioxide 26 mmol/L (22-30); Chloride 108 mmol/L (98-107); Glucose 116 mg/dl (70-99); Potassium 4.1 mmol/L (3.5-5.1); Sodium 141 mmol/L (135-145); Total Bilirubin 0.3 mg/dl (0.2-1.3); Total Protein 8.2 g/dl (6.3-8.2); eGFR > 60.00
[2025-02-05 19:26] LABS: Troponin I < 0.012 ng/ml
[2025-02-05 19:27] LABS: % Basophils 0.4 % (0-2); % Eosinophils 0.9 % (0-6); % Immature Granulocytes 0.3 % (0-0.5); % Lymphocytes 52.5 % (20.5-51.1); % Neutrophils 39.9 % (42.2-75.2); Absolute Eosinophils 0.1 10^3/uL (0-0.7); Absolute Lymphocytes 3.6 10^3/uL (1.2-3.4); Absolute Monocytes 0.4 10^3/uL (0.1-0.6); Absolute Neutrophils 2.7 10^3/uL (1.4-6.5); Nucleated Red Blood Cells % 0 %
[2025-02-05 20:40] VITALS: BP 122/81
[2025-02-05 21:00] VITALS: BP 116/78
[2025-02-05 21:30] VITALS: BP 121/93
[2025-02-05] MEDS: NSS 1000 IV (21:51)
--- NOTE | 2025-02-05 23:24 | ED.GENMED ---
History of Present Illness
General
Chief Complaint: Dizziness
Source: patient and family
Time Seen by Provider: 02/05/25 21:08
History of Present Illness
History of Present Illness:
Note:
CHIEF COMPLAINT(S)
Lightheadedness and fatigue.
HISTORY OF PRESENT ILLNESS
The patient is a 48-year-old male with a medical history significant for an Achilles tendon rupture, scheduled for surgical repair tomorrow. He presents with lightheadedness and fatigue. The patient reports feeling dizzy all day and experiencing
increased fatigue following a strenuous [place]. He initially felt unwell at home, resting on the floor and bed for relief. Symptoms of lightheadedness persisted when attempting to stand, especially after being supine, and he was nearly
ready to 'fall over.' He consumed fluids and was able to ambulate downstairs after resting. He reports no chest pain or shortness of breath, but felt 'real lightheaded,' geo to being hungover. Current medications include four baby aspirin daily and
intermittent ibuprofen for pain, which has decreased in severity. No recent intense heat exposure reported, despite current high temperatures. Blood test results suggested dehydration, with a BUN/creatinine ratio greater than 20:1. Theres a concern
for potential thromboembolic events due to immobility and a scheduled Achilles tendon surgery.
ADDITIONAL HISTORY OBTAINED FROM SOURCES OTHER THAN THE PATIENT
According to the spouse, the patient has been fatigued and unable to drive.
SOCIAL DETERMINANTS AFFECTING HEALTH
The patient has recently traveled overseas for work, which was reportedly exhausting.
ALLERGIES
Penicillin.
REVIEW OF SYSTEMS
- General: Fatigue, lightheadedness.
- Cardiovascular: No chest pain.
- Respiratory: No shortness of breath.
- Neurological: Lightheadedness worsening upon standing; no headache, no vision changes, no motor weakness.
PHYSICAL EXAM
- General: Patient is awake, alert, and in no apparent distress.
- Head and Neck: Extraocular movements intact, pupils equal, round, and reactive to light, no jugular venous distention.
- Cardiovascular: Heart is regular without murmur.
- Respiratory: Lungs are clear.
- Extremities: Patient has a boot on the right lower extremity; no edema noted.
PLAN
Administer intravenous fluids for rehydration. Check orthostatic vital signs to evaluate dehydration further. Perform diagnostic testing to evaluate for thromboembolism, including D-dimer, with subsequent imaging (CT scan for pulmonary embolism
and/or ultrasound of the lower extremity) as indicated by test results. Proceed with hydration and pre-operative preparation without delay to tomorrows scheduled surgery. Patient advised to report any worsening symptoms.
DIFFERENTIAL DIAGNOSIS
The Differential Diagnosis includes, in no particular order and is not limited to:
1. Dehydration
2. Orthostatic hypotension
3. Pulmonary embolism
4. Deep vein thrombosis
5. Adverse drug effect (aspirin/ibuprofen)
6. Vasovagal syncope
7. Anemia
8. Electrolyte imbalance
9. Infection/sepsis
10. Cardiovascular event (e.g., arrhythmia)
EKG
My independent EKG interpretation is:
- Normal rhythm
- Normal axis
- [place] interval is normal
- QRS duration is normal
- QTc interval is normal
- No Q wave changes
Disposition:
SUMMARY OF ENCOUNTER
The patient, a 48-year-old male with a history of Achilles tendon rupture scheduled for surgical repair, presented to the emergency department with symptoms of lightheadedness and fatigue, likely due to dehydration following overseas travel.
Intravenous fluids were administered, leading to symptomatic improvement. Considering recent immobility and travel, a D-dimer test was conducted due to the concern for thromboembolic events, but it returned negative. The patient remained stable with
no orthostatic changes post-rehydration and tolerated oral intake. Consequently, the patient was deemed safe for discharge with directions for outpatient follow-up with anesthesia and orthopedics before the scheduled surgery.
DISPOSITION
The patient is discharged with outpatient follow-up planned.
INDEPENDENT REVIEW OF LABS AND INTERPRETATION OF TESTS
My independent review of labs reveals a BUN/creatinine ratio of 46/0.9, a negative D-dimer, hemoglobin level of 12.3, and a normal white blood cell count. These findings indicate dehydration without evidence of thromboembolism.
MEDICATION RECONCILIATION
Medications administered include intravenous fluids for rehydration.
MEDICAL DECISION MAKING
1. Number & Complexity of Problems:
- Chronic conditions affecting care include a previous Achilles tendon rupture.
- The differential diagnosis included dehydration, orthostatic hypotension, and potential thromboembolic events.
2. Data Reviewed:
- Category 1: Review and independent interpretation of lab results, including a negative D-dimer and dehydration indicators.
3. Risk: Consideration for admission was made due to the complexity and risk of thromboembolism due to immobility, but outpatient management was deemed appropriate based on negative D-dimer results, stable vitals, and reliable follow-up plan.
PATHOLOGIES TO CONSIDER
- Pulmonary embolism due to recent immobility and travel.
- Deep vein thrombosis considering similar risk factors, though ruled out with a negative D-dimer.
Past History
Past History
ED Past Medical History: Psychiatric (Anxiety, Depression) and Other ( IBS, ovarian cyst, colitis, DVT/PE, C-diff, PCOS, POTS, Migraines, )
ED Past Surgical History: Gynecological (Hymenectomy ) and Orthopedic (Left knee meniscus and MPFO)
Social History
Tobacco: Non-smoker
Alcohol: None
Drug: None
Personal: Single
Living: with roommate
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
Family History
Family History: Other
Phy Exam
Physical Exam
Physical Exam:
.
Course
Orders/Labs/Results
Orders:
Orders
02/05/25 18:38
Electrocardiogram (*1) Urgent
Reason for Study: Chest Pain
EKG- Treatment ONCE
Test Result ONCE
02/05/25 18:50
Complete Blood Count/With Diff Urgent
Comprehensive Metabolic Panel Urgent
HCG, Serum Qualitative Screen Urgent
Comment: Notify provider if positive test present
Troponin I Urgent
02/05/25 21:31
0.9% Sodium Chloride 1000 ml [Nss] 1,000 ml IV BOLUS
Abnormal Lab Results
02/05/25
18:50
Absolute Lymphs (auto) 3.6 H 10^3/uL
(1.2-3.4)
Neutrophils % 39.9 L %
(42.2-75.2)
Lymphocytes % 52.5 H %
(20.5-51.1)
Chloride 108 H mmol/L
(98-107)
Glucose 116 H mg/dl
(70-99)
02/05/25 18:50
02/05/25 18:50
Vital Signs
Initial and Last Documented VS:
Initial Vital Signs
Temp Pulse Resp BP Pulse Ox
98.3 F 107 20 142/102 100
02/05/25 18:36 02/05/25 18:36 02/05/25 18:36 02/05/25 18:36 02/05/25 18:36
Last Documented Vital Signs
Temp Pulse Resp BP Pulse Ox
98.3 F 70 18 116/72 99
02/05/25 18:36 02/05/25 23:30 02/05/25 23:30 02/05/25 23:30 02/05/25 23:30
*Pulse Oximetry
SaO2: 98
Oxygen Mode of Delivery: Room air
Patient hypoxic: no
*Critical Care Note
Total Time (30-74mins, 75-104mins- exclusive of procedures): Not Applicable
ED Attending Note
-
Portions of this chart may have been created with voice recognition software.� Occasional wrong word or��sound alike� substitutions may have occurred due to the inherent limitations of voice recognition software.
Discharge Plan
Departure
Patient Disposition: Home (Routine Discharge)
Date of Disposition: 02/05/25
Time of Disposition: 23:25
Patient with high blood pressure during this ER visit?: No
Discharge Problem:
Postural orthostatic tachycardia syndrome [POTS]
Instructions: Dizziness
Prescriptions:
No Action
ondansetron HCl 4 mg Tablet
4 mg PO Q6H PRN (Reason: nausea)
metoprolol succinate 25 mg Tablet Extended Release 24 Hr
25 mg PO DAILY
sertraline [Zoloft] 50 mg Tablet
50 mg PO DAILY
acetaminophen 325 mg Tablet
650 mg PO Q4HPRN PRN (Reason: mild pain/SUN/temp> 100.4F) Qty: 0 0RF
enoxaparin [Lovenox] 80 mg/0.8 mL Syringe
80 mg SC Q12H
metoprolol succinate 50 mg tablet extended release 24 hr
50 mg PO DAILY 14 Days Qty: 14 0RF
ondansetron 4 mg Tablet,Disintegrating
4 mg PO TIDPRN PRN (Reason: nausea/vomiting) Qty: 12 0RF
ondansetron 4 mg tablet,disintegrating
4 mg PO Q8H PRN (Reason: nausea and vomiting) Qty: 10 0RF
prednisone 50 mg tablet
50 mg PO DAILY Qty: 5 0RF
Referrals:
Jennifer Jackson MD [Family Provider, Family Practice]
Activity Restrictions/Additional Instructions:
Please drink plenty fluids. Return immediately for chest pain, shortness of breath, passing out episode or any other concerns. Please see your doctor in the next 1 week for follow-up and reevaluation.
Interventions
Interventions:
*Risk Screen - Suicide Last Done: 02/05/25 18:36
*General Assessment Last Done: 02/05/25 20:43
*Neglect/Abuse Screening Last Done: 02/05/25 18:36
*ED- Fall Risk Assessment Last Done: 02/05/25 20:43
*ED COVID-19 Vaccine History Last Done: 02/05/25 20:43
*Nursing Disposition Last Done: 02/05/25 23:34
ED- Neurological Assessment Last Done: 02/05/25 20:43
ED- Cardiac Assessment Last Done: 02/05/25 20:43
Discharge Date and Time
Discharge Date/Time: 02/05/25 23:35
Print Language: AMHARIC
[2025-02-05 23:30] VITALS: BP 116/72
== END 2025-02-05 23:35 | disposition home or self-care (01) ==
LOC: EMR 18:25
PROVIDERS: Emergency Medicine; EMERGENCY PHYSICIAN Emergency Medicine; FAMILY PHYSICIAN Family Medicine
DX: G90.A Postural orthostatic tachycardia syndrome [POTS] (principal); Z86.718 Personal history of other venous thrombosis and embolism
CPT/HCPCS: 96360; 99284; 80053; 84484; 84703; 85025; 93005

== ENCOUNTER 2025-02-10 10:40 | Emergency (ER) | payer BC, SELFPAY ==
[2025-02-10 10:42] VITALS: BP 141/93
[2025-02-10 11:00] VITALS: BP 146/83
--- NOTE | 2025-02-10 11:29 | ED.GENMED ---
History of Present Illness
General
Chief Complaint: Chest Pain
Source: patient
Exam Limitations: none
Time Seen by Provider: 02/10/25 11:16
Nursing documentation reviewed up to this point in time: agreed with
History of Present Illness
History of Present Illness:
24 y/o F with h/o POTS, previous PE on lovenox, anxiety
here with chest tightness similar to her PE last year.
she says she is on lovenox, was on 80 mg sc BID until a month ago she switched to 120 mg once daily
pt has been compliant with her lovenox
she says she thought maybe it was allergies yesterday when she started feeling this way, so s he tried zyrtec
woke up and fel tthe same and it got worse aroun d8 am while at work
she feels like something sitting on her chest making it tight
no cough, wheezing, sore throat, fever, leg swelling, vomiting, diaprhoresis
not worse with walking or changing position
she has seen cards, dr. huitron
she also has [employer] consultant dr. odell, called the office and was told to come in to the ER
pt is asking for a d dimer
she was here 5 dyas ago for POTS.
Past History
Past History
ED Past Medical History: Psychiatric (Anxiety, Depression) and Other ( IBS, ovarian cyst, colitis, DVT/PE, C-diff, PCOS, POTS, Migraines, )
ED Past Surgical History: Gynecological (Hymenectomy ) and Orthopedic (Left knee meniscus and MPFO)
Social History
Tobacco: Non-smoker
Alcohol: None
Drug: None
Personal: Single
Living: with roommate
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
Family History
Family History: Other
Review of Systems
Review of Systems
Allergies reviewed?: Yes
All Other Systems: Not applicable
Phy Exam
Physical Exam
Physical Exam:
GENERAL: Alert , in no apparent distress,, comfortable
EYE: pupils equal and reactive
NECK: Supple
ENT: o/p clr, mmm.
CARDIAC: Regular rate and rhythm . No murmur appreciated
LUNGS: Clear breath sounds bilaterally, no acute respiratory distress, no wheezes/rales/rhonchi
ABDOMEN: Soft, without focal tenderness, no r/g, no cvat, normal bowel sounds
NEUROLOGICAL: Alert and oriented, no focal neuro deficits
SKIN: Warm and dry, skin intact.
MUSCULOSKELETAL: No edema, well perfused. neg elsa's sign
PSYCH: Normal and appropriate interaction.
Scores
Heart Score for Chest Pain Patients
STEMI patient?: No
History: Slightly or Non-Suspicious
ECG: Normal
Age: </= 45 years
Risk Factors: No Risk Factors
Troponin: </= Normal Limit
Heart Score for Chest Pain Patients: 0
Heart Score Risk: 2.5% MACE over next 6 weeks
Course
Orders/Labs/Results
Orders:
Orders
02/10/25 10:45
Electrocardiogram (*1) Urgent
Reason for Study: Chest Pain
EKG- Treatment ONCE
02/10/25 11:26
Test Result ONCE
02/10/25 11:41
Complete Blood Count/With Diff Urgent
Comprehensive Metabolic Panel Urgent
D-Dimer Urgent
HCG, Serum Qualitative Screen Urgent
Troponin I Urgent
02/10/25 13:14
CR Chest - 2 Views Urgent
Comment:
Reason For Exam: chest pain
Abnormal Lab Results
02/10/25
11:41
Chloride 108 H mmol/L
(98-107)
Total Protein 8.4 H g/dl
(6.3-8.2)
02/10/25 11:41
02/10/25 11:41
Vital Signs
Initial and Last Documented VS:
Initial Vital Signs
Temp Pulse Resp BP Pulse Ox
36.6 C 90 16 141/93 99
02/10/25 10:42 02/10/25 10:42 02/10/25 10:42 02/10/25 10:42 02/10/25 10:42
Last Documented Vital Signs
Temp Pulse Resp BP Pulse Ox
36.6 C 87 16 115/68 99
02/10/25 10:42 02/10/25 12:45 02/10/25 12:45 02/10/25 13:00 02/10/25 13:15
MDM/Problems Addressed
Differential Diagnosis Includes:
anxiety, GERD, PE, msk pain, viral syndrome
MDM/Problems Addressed:
24 y/o F
h/o POTS
h/o PE onlovenox
here with chest tightness since yesterday, constant but more intense today
silght cough just starting now in the Er
no fever/chills, no pleuritic pain, no exertional symptoms
no leg swelling
t is anxious this feels like her PE
called hematology and sent to ER
ekg no ischemic changes
pulse ox normal
no wheezing
rare cough
speaking full sentences
d dimer, trop neg
cxr indep reviewed, neg
d/c home
*Pulse Oximetry
SaO2: 99
Oxygen Mode of Delivery: Room air
Patient hypoxic: no (99)
*Critical Care Note
Total Time (30-74mins, 75-104mins- exclusive of procedures): Not Applicable
ED Attending Note
-
Portions of this chart may have been created with voice recognition software.� Occasional wrong word or��sound alike� substitutions may have occurred due to the inherent limitations of voice recognition software.
Discharge Plan
Departure
Patient Disposition: Home (Routine Discharge)
Date of Disposition: 02/10/25
Time of Disposition: 13:49
Patient with high blood pressure during this ER visit?: No
Condition: Fair
Covid-19: Not Applicable
Discharge Problem:
Chest tightness
Instructions: Chest Pain That Is Not Caused by the Heart (DC)
Prescriptions:
No Action
ondansetron HCl 4 mg Tablet
4 mg PO Q6H PRN (Reason: nausea)
metoprolol succinate 25 mg Tablet Extended Release 24 Hr
25 mg PO DAILY
sertraline [Zoloft] 50 mg Tablet
50 mg PO DAILY
acetaminophen 325 mg Tablet
650 mg PO Q4HPRN PRN (Reason: mild pain/SUN/temp> 100.4F) Qty: 0 0RF
enoxaparin [Lovenox] 80 mg/0.8 mL Syringe
80 mg SC Q12H
metoprolol succinate 50 mg tablet extended release 24 hr
50 mg PO DAILY 14 Days Qty: 14 0RF
ondansetron 4 mg Tablet,Disintegrating
4 mg PO TIDPRN PRN (Reason: nausea/vomiting) Qty: 12 0RF
ondansetron 4 mg tablet,disintegrating
4 mg PO Q8H PRN (Reason: nausea and vomiting) Qty: 10 0RF
prednisone 50 mg tablet
50 mg PO DAILY Qty: 5 0RF
Referrals:
Jennifer Jackson MD [Family Provider, Family Practice] - Follow up in 2-3 days
Activity Restrictions/Additional Instructions:
Sure the cause of your chest tightness. Your blood work was reassuring, your EKG was normal and your lungs were clear.
Follow-up with your land developer
Return for worsening symptoms like fever, worsening shortness of breath, passing out, coughing up blood or any concerns
Interventions
Interventions:
*Risk Screen - Suicide Last Done: 02/10/25 10:42
*General Assessment Last Done: 02/10/25 10:42
*Neglect/Abuse Screening Last Done: 02/10/25 10:42
*ED- Fall Risk Assessment Last Done: 02/10/25 11:01
*ED COVID-19 Vaccine History Last Done: 02/10/25 11:01
*Nursing Disposition Last Done: 02/10/25 13:56
ED- Cardiac Assessment Last Done: 02/10/25 11:43
Discharge Date and Time
Discharge Date/Time: 02/10/25 13:56
Print Language: PASHTO
[2025-02-10 11:49] LABS: % Basophils 0.4 % (0-2); % Eosinophils 0.8 % (0-6); % Immature Granulocytes 0.4 % (0-0.5); % Lymphocytes 45.3 % (20.5-51.1); % Monocytes 6.7 % (1.7-9.3); % Neutrophils 46.4 % (42.2-75.2); Absolute Eosinophils 0.1 10^3/uL (0-0.7); Absolute Lymphocytes 3.3 10^3/uL (1.2-3.4); Absolute Monocytes 0.5 10^3/uL (0.1-0.6); Absolute Neutrophils 3.4 10^3/uL (1.4-6.5); Hematocrit 40.3 % (37.0-47.0); Hemoglobin 13.7 g/dL (12.0-16.0); Mean Corpuscular Hgb 29.1 pg (27.0-31.0); Mean Corpuscular Volume 85.6 fL (81.0-99.0); Mean Platelet Volume 9.1 fL (7.4-10.4); Nucleated Red Blood Cells % 0 %; Platelet Count 325 10^3/uL (130-400); Red Blood Cell Count 4.71 10^6/uL (4.20-5.40); Red Cell Dist. Width 12.9 % (11.5-14.5); White Blood Cell Count 7.3 10^3/uL (4.8-10.8)
[2025-02-10 12:00] VITALS: BP 116/66
[2025-02-10 12:02] LABS: D-Dimer 0.34 ug/mlFEU (0.00-0.50)
[2025-02-10 12:16] LABS: HCG, Serum Qualitative Screen Negative
[2025-02-10 12:26] LABS: Troponin I < 0.012 ng/ml
[2025-02-10 12:36] LABS: ALT (SGPT) 26 U/L (0-35); AST (SGOT) 21 U/L (14-36); Albumin 4.8 g/dl (3.5-5.0); Alkaline Phosphatase 62 U/L (38-126); Blood Urea Nitrogen 16 mg/dl (7-17); Calcium 9.9 mg/dl (8.4-10.2); Carbon Dioxide 24 mmol/L (22-30); Chloride 108 mmol/L (98-107); Glucose 91 mg/dl (70-99); Potassium 4.3 mmol/L (3.5-5.1); Sodium 140 mmol/L (135-145); Total Bilirubin 0.4 mg/dl (0.2-1.3); Total Protein 8.4 g/dl (6.3-8.2); eGFR > 60.00
[2025-02-10 13:00] VITALS: BP 115/68
== END 2025-02-10 13:56 | disposition home or self-care (01) ==
LOC: EMR 10:40
PROVIDERS: Physician Assistant; EMERGENCY PHYSICIAN Emergency Medicine; FAMILY PHYSICIAN Family Medicine
DX: R07.89 Other chest pain (principal); Z86.711 Personal history of pulmonary embolism; Z86.718 Personal history of other venous thrombosis and embolism
CPT/HCPCS: 99285; 71046; 80053; 84484; 84703; 85025; 85379; 93005

== ENCOUNTER 2025-03-05 01:33 | Emergency (ER) | payer BC, SELFPAY ==
[2025-03-05 01:37] VITALS: BP 128/94
[2025-03-05 02:49] LABS: Hematocrit 39.1 % (37.0-47.0); Hemoglobin 13.3 g/dL (12.0-16.0); Mean Corp Hgb Conc. 34.0 g/dL (33.0-37.0); Mean Corpuscular Volume 86.5 fL (81.0-99.0); Nucleated Red Blood Cells % 0 %; Platelet Count 300 10^3/uL (130-400); Red Cell Dist. Width 13.1 % (11.5-14.5)
[2025-03-05 02:58] LABS: Urine Character Clear (Clear)
[2025-03-05 03:00] VITALS: BP 127/77
[2025-03-05 03:00] LABS: INR 0.93; PT 12.7 Sec (11.4-14.6)
[2025-03-05 03:01] LABS: APTT 38.9 Sec (23.4-35.0)
[2025-03-05 03:04] LABS: ALT (SGPT) 36 U/L (0-35); AST (SGOT) 21 U/L (14-36); Albumin 4.5 g/dl (3.5-5.0); Alkaline Phosphatase 60 U/L (38-126); Blood Urea Nitrogen 13 mg/dl (7-17); Calcium 9.7 mg/dl (8.4-10.2); Carbon Dioxide 26 mmol/L (22-30); Chloride 107 mmol/L (98-107); Glucose 104 mg/dl (70-99); Potassium 4.1 mmol/L (3.5-5.1); Sodium 139 mmol/L (135-145); Total Protein 7.9 g/dl (6.3-8.2); eGFR > 60.00
[2025-03-05 03:05] LABS: HCG, Serum Qualitative Screen Negative
[2025-03-05 03:11] LABS: Urine Squamous Cell 16-20 /LPF (Few)
[2025-03-05 03:12] LABS: Urine White Cell 0-2 /HPF (0-5)
[2025-03-05 04:10] VITALS: BP 127/67
[2025-03-05 04:12] VITALS: BP 115/65
[2025-03-05 04:13] VITALS: BP 134/101
[2025-03-05 04:15] VITALS: BP 115/65; BP 127/67; BP 134/101; PULSE 104; PULSE 78; PULSE 86
[2025-03-05] MEDS: NSS 1000 IV (04:22)
--- NOTE | 2025-03-05 05:11 | ED.GENMED ---
History of Present Illness
General
Chief Complaint: Fainting Sensation
Source: patient
Exam Limitations: none
Time Seen by Provider: 03/05/25 02:16
Nursing documentation reviewed up to this point in time: agreed with
History of Present Illness
History of Present Illness:
Note:
CHIEF COMPLAINT(S)
Facial numbness and drooping, headache, nausea.
HISTORY OF PRESENT ILLNESS
The patient is a 24-year-old female who presents with concerns of a possible stroke due to experiencing numbness and drooping on the right side of her face. These symptoms began earlier today. The numbness has since improved, but the drooping and a
'lopsided feeling' on the right side persist. Additionally, the patient reports feeling a head mendoza sensation even while sitting and experiencing nausea over the past two hours. She has a history of migraines and is currently on the medication
Emgality for management. Her neurologist previously indicated that her symptoms might be due to an atypical migraine rather than a stroke. The patient expresses concern about her current medications not being effective and reports that her
neurologist advised giving the medication another month before considering a switch to Aimovig. The patient has also experienced an accelerated heart rate in the past few days and has taken extra doses of her medication as advised. She denies any
chest pain, difficulty finding words, or other neurological deficits.
The patient describes a history of deep vein thrombosis (DVT) and past chest pain, for which she underwent knee surgery and was on anticoagulation. These findings warrant further investigation, especially given her current symptomatology.
SOCIAL DETERMINANTS AFFECTING HEALTH
The patient does not smoke and denies alcohol or drug use. 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
PHYSICAL EXAM
General: Alert, minimal acute distress.
Skin: Warm, dry.
Head: Normocephalic, atraumatic.
Neck: Supple, trachea midline.
Eye Ears, nose, mouth and throat: Oral mucosa moist. No visible droop, but the patients left eyebrow is noted to sometimes rise higher.
Cardiovascular: Normal peripheral perfusion, No edema.
Respiratory: Respirations are non-labored.
Gastrointestinal: Abdomen nondistended.
Back: Normal range of motion, Normal alignment.
Musculoskeletal: Normal range of motion, normal strength.
Neurological: Alert and oriented to person, place, time, and situation. No focal neurological deficit observed. Use of facial muscles appears symmetric upon examination.
Psychiatric: Cooperative, appropriate mood & affect.
PLAN
1. Order a computed tomography (CT) scan to rule out any acute neurological events, including stroke.
2. Administer intravenous fluids to address potential dehydration.
3. Provide Tylenol (acetaminophen) for headache relief.
4. Follow up with neurologist as per existing care plan. The patient is also instructed to monitor her symptoms and, if future episodes arise suggesting atypical migraines and she is sure of this diagnosis, she may reconsider undergoing immediate
imaging unless clinically warranted.
5. If the CT scan reveals abnormalities, consider transfer to a tertiary care center for further evaluation and management.
DIFFERENTIAL DIAGNOSIS
The Differential Diagnosis includes, in no particular order and is not limited to:
1. Atypical migraine
2. Transient ischemic attack (TIA)
3. Marte�s palsy
4. Stroke
5. Hemiplegic migraine
6. Anxiety-related facial changes
7. Complex partial seizures
8. Intracranial mass or lesions
9. DVT-related vascular complications
10. Medication side effects or interactions
EKG
My independent EKG interpretation is:
- EKG date: February 10, 2025
- Rhythm: Normal-sized rhythm
- Heart rate: Not specifically mentioned
- [place] interval: Not specifically mentioned
- QRS duration: Not specifically mentioned
- QT interval: Not specifically mentioned
- [place]: Normal
- ST segment: No evidence of acute ischemia
- T wave: Nonspecific T-wave abnormalities evident
- Additional notes: None provided
Disposition:
SUMMARY OF ENCOUNTER
A 24-year-old female presented with transient right-sided facial numbness, raising concerns about a possible stroke. She reported that similar symptoms had been evaluated in the past, with her neurologist at [facility] attributing them to atypical
migraines. The patient experienced these symptoms earlier yesterday but arrived at the emergency department outside the tissue plasminogen activator (tPA) window for stroke intervention. Upon examination, she reported resolution of symptoms, and
repeated assessments confirmed her left eyebrow raising with headaches rather than a right-sided facial droop. Todays symptoms were deemed consistent with atypical migraines. A CT scan was performed to rule out acute neurological events, which
returned negative. The patient expressed feeling much improved and requested discharge.
DISPOSITION
Discharge.
ASSESSMENT
Symptoms consistent with atypical migraines as evaluated by previous neurologic assessment. Stroke ruled out by negative CT scan.
PLAN
Discharge the patient with instructions to follow up with her neurologist as previously planned, and continue monitoring her symptoms for any changes. Recommends reconsideration of medication if symptoms persist or worsen.
INDEPENDENT REVIEW OF LABS AND INTERPRETATION OF TESTS
- My independent interpretation of the CT scan indicates no acute neurological events or abnormalities.
PATIENT EDUCATION AND COUNSELING
Patient was informed about the recurrent nature of her atypical migraines and the importance of continued follow-up with her neurologist. Discussed the factors causing her usual headache symptoms and reassured her about the negative findings on the
CT scan.
FOLLOW-UP INSTRUCTIONS
Please follow up with your neurologist as soon as possible to discuss ongoing management of atypical migraines and review current medications.
MEDICAL DECISION MAKING
Number and Complexity of Problems Addressed: Chronic conditions affecting care include atypical migraines. Differential diagnosis considered included atypical migraine, transient ischemic attack (TIA), Marte�s palsy, stroke, hemiplegic migraine,
anxiety-related facial changes, complex partial seizures, intracranial mass or lesions, DVT-related vascular complications, and medication side effects or interactions.
Data:
Category 1
- The CT scan was independently interpreted, confirming no acute conditions.
- The patients history of migraines and previous neurological evaluations were considered.
Category 3
- Coordination with the patients neurologist for ongoing management as she has a pre-existing plan with her specialist.
Risk:
Prescription medication management was not altered during this visit as existing medications were deemed appropriate pending further evaluation by her neurologist.
Consideration of Admission/Observation: Escalation of care, including admission/observation, was considered given the complexity and risk of the patients presenting complaint. However, ultimately, the patient is considered safe for outpatient
management with close follow-up. Reasoning: Work-up is reassuring, does not reveal any acute life/organ-threatening processes, patients symptoms well-controlled upon reevaluation, reexamination is reassuring, vitals are stable, patient agreeable
with discharge, reliable for follow-up.
DIAGNOSIS
- Atypical Migraine (G43.109, Migraine without aura, not intractable, without status migrainosus).
Past History
Past History
ED Past Medical History: Psychiatric (Anxiety, Depression) and Other ( IBS, ovarian cyst, colitis, DVT/PE, C-diff, PCOS, POTS, Migraines, )
ED Past Surgical History: Gynecological (Hymenectomy ) and Orthopedic (Left knee meniscus and MPFO)
Social History
Tobacco: Non-smoker
Alcohol: None
Drug: None
Personal: Single
Living: with roommate
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
Family History
Family History: Other
Phy Exam
General Physical Exam
General Presentation: well appearing and no apparent distress
General Skin: warm and dry
General Habitus: normal
General Mental: alert
General Hydration: appears well hydrated
ENT Exam
ENT Exam: EOMI, pharynx normal, neck supple and normocephalic
Eye Exam
Eye Exam: PERRL, cornea clear and conjunctiva normal
Cardiovascular Exam
Cardiovascular Exam: regular rate/rhythm, no edema, no murmur and normal peripheral pulses
Pulmonary Exam
Pulmonary Exam: lungs clear, no respiratory distress, no rales, no crackles, no rhonchi, no stridor, no wheezing and no cough
Gastrointestinal Exam
Gastrointestinal Exam: normal bowel sounds, non tender, soft, no organomegaly, no pulsatile mass and non distended
Neurological Exam
Neurological Exam: alert, oriented x3, CN II-XII intact, no motor deficits, no sensory deficits, speech normal, facial droop (Left-sided facial elevation specially at the eyebrow) and normal gait
NIH Stroke Score
Level of Consciousness: 0 - Alert
LOC questions: 0-Answers both correctly
LOC Commands: 0-Performs both correctly
Best Gaze: 0-Normal
Visual Aly: 0=Normal, no visual loss
Facial palsy: 0=Normal, symmetrical
Motor - Right Arm: 0=No drift 10 seconds
Motor - Left Arm: 0=No drift 10 seconds
Motor - Right Le-No drift 5 seconds
Motor - Left Le-No drift 5 seconds
Limb Ataxia: 0-Absent
Sensation: 0-Normal
Best Language: 0-No aphasia
Dysarthria: 0-Normal
Extinction and Inattention: 0-No abnormality
Total Score:: 0
Musculoskeletal Exam
Musculoskeletal Exam: full ROM and no edema
Skin Exam
Skin Exam: normal color, warm/dry, no rash and no petechia
Psychiatric Exam
Psychiatric Exam: normal mood/affect
Scores
NIH Stroke Score
Level of Consciousness: 0 - Alert
LOC Questions: 0-Answers both correctly
LOC Commands: 0-Performs both correctly
Best Horizontal Gaze: 0-Normal
Visual Aly: 0=Normal, no visual loss
Facial Palsy: 0=Normal, symmetrical
Motor - Right Arm: 0=No drift 10 seconds
Motor - Left Arm: 0=No drift 10 seconds
Motor - Right Le-No drift 5 seconds
Motor - Left Le-No drift 5 seconds
Limb Ataxia: 0-Absent
Sensation: 0-Normal
Best Language: 0-No aphasia
Dysarthria: 0-Normal
Extinction and Inattention: 0-No abnormality
NIH Total Score:: 0
Course
Orders/Labs/Results
Orders:
Orders
03/05/25 02:16
Test Result ONCE
03/05/25 02:18
Electrocardiogram (*1) Urgent
Reason for Study: Vertigo / Dizzy
EKG- Treatment ONCE
Orthostatic VS- Treatment ONCE
03/05/25 02:32
Complete Blood Count/With Diff Urgent
Comprehensive Metabolic Panel Urgent
HCG, Serum Qualitative Screen Urgent
PTT Urgent
Prothrombin Time Urgent
03/05/25 02:38
Urinalysis Reflex To Culture Urgent
Date Specimen was Collected: 03/05/25
Time Specimen was Collected: 02:36
Urine Microscopic Reflex Cult Urgent
03/05/25 02:55
CT Head W/o Iv Contrast Urgent
Comment:
Reason For Exam: Facial Tingling/SUN
03/05/25 04:22
0.9% Sodium Chloride 1000 ml [Nss] 1,000 ml IV BOLUS
Abnormal Lab Results
03/05/25 03/05/25
02:32 02:38
APTT 38.9 H Sec
(23.4-35.0)
Glucose 104 H mg/dl
(70-99)
ALT 36 H U/L
(0-35)
Ur Occult Blood Reflex 2+ A
(Negative)
Urine RBC 3-6 A /HPF
(0-2)
Urine Albumin (Reflex) 1+ A
(Neg - Trace)
03/05/25 02:32
03/05/25 02:32
Vital Signs
Initial and Last Documented VS:
Initial Vital Signs
Temp Pulse Resp BP Pulse Ox
97.9 F 75 20 128/94 100
03/05/25 01:37 03/05/25 01:37 03/05/25 01:37 03/05/25 01:37 03/05/25 01:37
Last Documented Vital Signs
Temp Pulse Resp BP Pulse Ox
97.9 F 76 16 134/101 97
03/05/25 01:37 03/05/25 04:45 03/05/25 04:45 03/05/25 04:13 03/05/25 05:17
*Pulse Oximetry
SaO2: 97
Oxygen Mode of Delivery: Room air
Patient hypoxic: no
*Critical Care Note
Total Time (30-74mins, 75-104mins- exclusive of procedures): Not Applicable
Update Note
Update Note:
[facility]
NAME: TITI ALCANTARA
DATE OF EXAM: 03/05/2025
Patient No: [id number]
Physician: SIS
Date of : 2000
Past Medical History (entered by Technologist):
Reason For Exam (entered by Technologist):
Other Notes (entered by Technologist): head rushes' and lightheadedeness today. Tonight she started with a tingling feeling in her right cheek and 'off' on her right side.
Additional Information (per Vision Radiologist): Lightheadedness. Tingling feeling right cheek
CT head
Comparison: 08/21/2024
IMPRESSION:
No acute intracranial findings
Record faxed directly to ER at 4:57 AM ET
Jackson Avilez M.D.
This report has been electronically signed and verified by the Radiologist whose name is printed above.
ED Attending Note
-
Portions of this chart may have been created with voice recognition software.� Occasional wrong word or��sound alike� substitutions may have occurred due to the inherent limitations of voice recognition software.
Discharge Plan
Departure
Patient Disposition: Home (Routine Discharge)
Date of Disposition: 03/05/25
Time of Disposition: 05:13
Patient with high blood pressure during this ER visit?: Yes
Condition: Fair
Discharge Problem:
Headache, Paresthesia
Instructions: Migraine in adults
Prescriptions:
No Action
metoprolol succinate 25 mg Tablet Extended Release 24 Hr
25 mg PO DAILY
acetaminophen 325 mg Tablet
650 mg PO Q4HPRN PRN (Reason: mild pain/SNU/temp> 100.4F) Qty: 0 0RF
enoxaparin [Lovenox] 80 mg/0.8 mL Syringe
120 mg SC DAILY
metoprolol succinate 50 mg tablet extended release 24 hr
50 mg PO DAILY 14 Days Qty: 14 0RF
ondansetron 4 mg Tablet,Disintegrating
4 mg PO TIDPRN PRN (Reason: nausea/vomiting) Qty: 12 0RF
ondansetron 4 mg tablet,disintegrating
4 mg PO Q8H PRN (Reason: nausea and vomiting) Qty: 10 0RF
Zoloft
75 mg PO DAILY
Referrals:
neurology [facility] [Other]
Karyn Wheeler CRNP [Non-Admitting Privileges, Family Practice]
Monique Velazquez MD [Family Provider, Orthopedics]
Activity Restrictions/Additional Instructions:
Thank You for choosing [facility].
It was a pleasure meeting you and taking part in your care. We hope for your continued healing and wellness.
Please read discharge instructions in their entirety. However, they are for general education and may not describe your exact diagnosis at discharge. Information on your ER visit and medical conditions were discussed with you along with appropriate
follow up information...
If indicated, please take your medications as instructed and indicated on discharge paperwork.
Please schedule a follow up appointment as directed. Call to schedule an appointment
Please return to the emergency department with ANY change in, persisting, or worsening of symptoms. If any of your symptoms do not improve, or persist, or become more severe within 6-12 hours, please return to the emergency department for further
care.
Please return to the emergency department if you develop a headache, neck pain/stiffness, fever greater than 100.4F, chest pain, shortness of breath, persistent nausea, vomiting, slurred speech, difficulty walking, numbness/tingling, weakness, signs
of infection or any other symptoms that are worrisome to you.
If you have any questions or concerns please do not hesitate to call the Hospital at or E-mail me directly at [email or web address]
Interventions
Interventions:
*Risk Screen - Suicide Last Done: 03/05/25 01:37
*General Assessment Last Done: 03/05/25 01:37
*Neglect/Abuse Screening Last Done: 03/05/25 01:37
*ED- Fall Risk Assessment Last Done: 03/05/25 01:37
*ED COVID-19 Vaccine History Last Done: 03/05/25 01:37
ED- Cardiac Assessment Last Done: 03/05/25 02:45
ED- Neurological Assessment Last Done: 03/05/25 02:45
Discharge Date and Time
Print Language: SPANISH
== END 2025-03-05 05:36 | disposition home or self-care (01) ==
LOC: EMR 01:33
PROVIDERS: EMERGENCY PHYSICIAN Student in an Organized Health Care Education/Training Program; FAMILY PHYSICIAN Orthopaedic Surgery
DX: G43.009 Migraine without aura, not intractable, without status migrainosus (principal); R20.2 Paresthesia of skin; Z86.718 Personal history of other venous thrombosis and embolism
CPT/HCPCS: 96360; 99284; 70450; 80053; 81003; 81015; 84703; 85025; 85610; 85730; 93005

== ENCOUNTER → 2025-03-27 15:11 | Outpatient (REF) | payer BC, SELFPAY ==
[2025-03-27 16:32] LABS: D-Dimer < 0.27 ug/mlFEU (0.00-0.50)
== END ==
LOC: REG 15:11
PROVIDERS: ATTENDING PHYSICIAN Internal Medicine Hematology & Oncology; FAMILY PHYSICIAN Family Medicine
DX: I82.4Z2 Acute embolism and thrombosis of unspecified deep veins of left distal lower extremity (principal); I26.99 Other pulmonary embolism without acute cor pulmonale
CPT/HCPCS: 36415; 85379

== ENCOUNTER 2025-03-27 21:16 | Emergency (ER) | payer BC, SELFPAY ==
[2025-03-27 21:27] VITALS: BP 144/91
[2025-03-28 00:26] VITALS: BP 133/85
[2025-03-28 00:27] VITALS: BMI 32.1
[2025-03-28 01:00] VITALS: BP 123/85
--- NOTE | 2025-03-28 01:59 | ED.GENMED ---
History of Present Illness
General
Chief Complaint: DVT/Possible Blood Clot
Source: patient
Exam Limitations: none
Time Seen by Provider: 03/28/25 01:44
Nursing documentation reviewed up to this point in time: agreed with
History of Present Illness
History of Present Illness:
Note:
CHIEF COMPLAINT(S)
concern for potential deep vein thrombosis (DVT).
HISTORY OF PRESENT ILLNESS
The patient is a 24-year-old female who presents with ongoing knee pain. She reported that the pain started around 2:00 AM. The pain is described as sharp and dull, primarily located in the same area as a previous DVT, for which she is currently on
enoxaparin (Lovenox). The patient expressed concern about the possibility of another clot despite current anticoagulation therapy. The current pain is dull and persistent. The patient mentioned having undergone previous knee surgery. The pain
sometimes occurs while walking or sitting. No Manning�s cyst was noted on recent assessments, and there were no concerns with her heart and lung evaluations. The patient is under ongoing care with her vm[employer] consultant, Dr. Lemons from [place], who will
review the radiologists findings. It was advised that she continues with enoxaparin and compression stockings as part of her management plan.
PAST MEDICAL AND SURIGICAL HISTORY
The patient has undergone surgery on the affected knee.
EXTERNAL RECORDS REVIEWED
A previous assessment by a radiologist from a different company has been conducted on the knee, with no definitive findings of a Bakers cyst or major abnormalities.
SOCIAL DETERMINANTS AFFECTING HEALTH
The patient did not mention any specific social determinants affecting her health at this visit.
MEDICATIONS
The patient is currently taking enoxaparin (Lovenox). She wears compression stockings as recommended.
REVIEW OF SYSTEMS
- Musculoskeletal: Sharp, dull knee pain, similar to previous DVT location.
- Cardiovascular: Heart and lung evaluations were normal.
PHYSICAL EXAM
General: Alert, no acute distress.
Skin: Warm, dry.
Head: Normocephalic, atraumatic.
Neck: Supple, trachea midline.
Eye Ears, Nose, Mouth, and Throat: Oral mucosa moist.
Cardiovascular: Normal peripheral perfusion, No edema.
Respiratory: Respirations are non-labored.
Gastrointestinal: Abdomen nondistended.
Back: Normal range of motion, Normal alignment.
Musculoskeletal: Normal range of motion, normal strength. Knee pain reported under certain conditions but no acute distress noted upon examination.
Neurological: Alert and oriented to person, place, time, and situation, No focal neurological deficit observed.
Psychiatric: Cooperative, appropriate mood & affect.
PLAN
- Continue enoxaparin (Lovenox) with compression stockings.
- Follow up with vmware consultant, Dr. Lemons from [place], for further evaluation.
- Radiological assessment will be reviewed by the in-house radiologist and results will be communicated to the patient.
DIFFERENTIAL DIAGNOSIS
The Differential Diagnosis includes, in no particular order and is not limited to:
1. Deep vein thrombosis (DVT)- not seen on US
2. Manning�s cyst
3. Post-surgical pain
4. Osteoarthritis
5. Bursitis
6. Patellofemoral pain syndrome
7. Meniscal tear
8. Ligament sprain
9. Tendonitis
10. Chronic regional pain syndrome (CRPS)
Disposition:
SUMMARY OF ENCOUNTER
The patient is a 24-year-old female who presented to the emergency department with concerns of posterior knee pain. She has a history of deep vein thrombosis (DVT) and is actively managed by her vm[employer] consultant. Currently, she is on enoxaparin. A
recent DVT study at our facility was negative. On examination, she demonstrated full range of motion in the leg with no swelling or significant pain on palpation. Tests such as the Homans sign and Achilles tendon examination were negative. No
midline joint tenderness or obvious effusion was observed, and the skin was warm and dry.
DISPOSITION
Discharge.
ASSESSMENT
The patient presents with knee pain without evidence of a new DVT as per the recent study. No acute joint issues were noted on examination to warrant further immediate intervention.
PLAN
The patient will be discharged with instructions to follow up with her vm[employer] consultant, ensuring continued management of her anticoagulation and monitoring for any new symptoms.
PATIENT EDUCATION AND COUNSELING
The patient was informed about the negative DVT findings and reassured about the absence of acute complications. Instructions for monitoring symptoms and continuing current medication regimen were provided.
FOLLOW-UP INSTRUCTIONS
The patient is to follow up with her vm[employer] consultant as planned.
MEDICATION RECONCILIATION
The patient is currently on enoxaparin. No additional medications were prescribed in the emergency department.
MEDICAL DECISION MAKING
- Complexity of Data Reviewed: Chronic conditions affecting care: history of deep vein thrombosis (DVT). Differential diagnosis considered includes deep vein thrombosis (DVT), Manning�s cyst, post-surgical pain, osteoarthritis, bursitis,
patellofemoral pain syndrome, meniscal tear, ligament sprain, tendonitis, chronic regional pain syndrome (CRPS).
- Data:
Category 1
Non-emergency department records reviewed. External record reviewed: prior hematology notes.
- Risk:
Prescription medication was prescribed, enoxaparin.
Consideration of Admission/Observation: Escalation of care including admission/observation was considered given the complexity and risk of the patients presenting complaint, exam findings, and/or their underlying comorbidities. However, ultimately I
feel the patient is safe for outpatient management with close follow up. Reasoning: work-up reassuring, does not reveal any acute life/organ threatening processes, patients symptoms well controlled upon reevaluation, reexamination is reassuring,
vitals are stable, patient agreeable with discharge, reliable for follow-up.
DIAGNOSIS
1. Knee pain, unspecified (ICD-10: M25.569).
2. History of deep vein thrombosis (ICD-10: Z86.718).
Past History
Past History
ED Past Medical History: Psychiatric (Anxiety, Depression) and Other ( IBS, ovarian cyst, colitis, DVT/PE, C-diff, PCOS, POTS, Migraines, )
ED Past Surgical History: Gynecological (Hymenectomy ) and Orthopedic (Left knee meniscus and MPFO)
Social History
Tobacco: Non-smoker
Alcohol: None
Drug: None
Personal: Single
Living: with roommate
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
Family History
Family History: Other
Phy Exam
Physical Exam
Physical Exam:
.
Course
Orders/Labs/Results
Orders:
Orders
03/28/25 00:00
US Periph Venous LOWER Ext LT Urgent
Reason For Exam: left leg pain behind knee
Vital Signs
Initial and Last Documented VS:
Initial Vital Signs
Temp Pulse Resp BP Pulse Ox
98.5 F 102 18 144/91 99
03/27/25 21:27 03/27/25 21:27 03/27/25 21:27 03/27/25 21:27 03/27/25 21:27
Last Documented Vital Signs
Temp Pulse Resp BP Pulse Ox
98.5 F 99 17 123/85 100
03/27/25 21:27 03/28/25 01:45 03/28/25 01:45 03/28/25 01:00 03/28/25 02:06
*Radiology
Radiology exam reviewed: radiology read reviewed
*Pulse Oximetry
SaO2: 100
Oxygen Mode of Delivery: Room air
Patient hypoxic: no
*Critical Care Note
Total Time (30-74mins, 75-104mins- exclusive of procedures): Not Applicable
Update Note
Update Note:
NAME: TITI ALCANTARA
DATE OF EXAM: 03/28/2025
Patient No: [id number]
Physician: NADIR
Date of : 2000
Past Medical History (entered by Technologist):
Reason For Exam (entered by Technologist):
Other Notes (entered by Technologist):
Additional Information (per [facility] Radiologist): Swelling, history of DVT
US LLE VENOUS
IMPRESSION:
No DVT in the left lower extremity.
Results faxed/electronically transmitted to the ER and radiology department at 1:33 AM ET.
Anurag Cooper M.D.
This report has been electronically signed and verified by the Radiologist whose name is printed above.
ED Attending Note
-
Portions of this chart may have been created with voice recognition software.� Occasional wrong word or��sound alike� substitutions may have occurred due to the inherent limitations of voice recognition software.
Discharge Plan
Departure
Patient Disposition: Home (Routine Discharge)
Date of Disposition: 03/28/25
Time of Disposition: 02:02
Patient with high blood pressure during this ER visit?: Yes
Discharge Problem:
Acute knee pain
Instructions: BLOOD PRESSURE, Musculoskeletal Pain
Prescriptions:
No Action
metoprolol succinate 25 mg Tablet Extended Release 24 Hr
25 mg PO DAILY
acetaminophen 325 mg Tablet
650 mg PO Q4HPRN PRN (Reason: mild pain/SUN/temp> 100.4F) Qty: 0 0RF
enoxaparin [Lovenox] 80 mg/0.8 mL Syringe
120 mg SC DAILY
metoprolol succinate 50 mg tablet extended release 24 hr
50 mg PO DAILY 14 Days Qty: 14 0RF
ondansetron 4 mg Tablet,Disintegrating
4 mg PO TIDPRN PRN (Reason: nausea/vomiting) Qty: 12 0RF
ondansetron 4 mg tablet,disintegrating
4 mg PO Q8H PRN (Reason: nausea and vomiting) Qty: 10 0RF
Zoloft
75 mg PO DAILY
Referrals:
Monique Velazquez MD [Family Provider, Orthopedics]
Vesta Chen MD [Active, Oncology]
Activity Restrictions/Additional Instructions:
Thank You for choosing [facility].
It was a pleasure meeting you and taking part in your care. We hope for your continued healing and wellness.
Please read discharge instructions in their entirety. However, they are for general education and may not describe your exact diagnosis at discharge. Information on your ER visit and medical conditions were discussed with you along with appropriate
follow up information...
If indicated, please take your medications as instructed and indicated on discharge paperwork.
Please schedule a follow up appointment as directed. Call to schedule an appointment
Please return to the emergency department with ANY change in, persisting, or worsening of symptoms. If any of your symptoms do not improve, or persist, or become more severe within 6-12 hours, please return to the emergency department for further
care.
Please return to the emergency department if you develop a headache, neck pain/stiffness, fever greater than 100.4F, chest pain, shortness of breath, persistent nausea, vomiting, slurred speech, difficulty walking, numbness/tingling, weakness, signs
of infection or any other symptoms that are worrisome to you.
If you have any questions or concerns please do not hesitate to call the Hospital at or E-mail me directly at [email or web address]
Interventions
Interventions:
*Risk Screen - Suicide Last Done: 03/27/25 21:27
*General Assessment Last Done: 03/27/25 21:27
*Neglect/Abuse Screening Last Done: 03/28/25 02:15
*ED- Fall Risk Assessment Last Done: 03/27/25 21:27
*ED COVID-19 Vaccine History Last Done: 03/27/25 21:27
*Nursing Disposition Last Done: 03/28/25 02:15
ED- Cardiac Assessment Last Done: 03/28/25 00:27
ED- Pulmonary Assessment Last Done: 03/28/25 00:27
ED-Peripheral Vascular Assessment Last Done: 03/28/25 00:27
ED-Skin Assessment Last Done: 03/28/25 00:27
Discharge Date and Time
Discharge Date/Time: 03/28/25 02:16
Print Language: ANDORRAN
== END 2025-03-28 02:16 | disposition home or self-care (01) ==
LOC: EMR 21:16
PROVIDERS: EMERGENCY PHYSICIAN Student in an Organized Health Care Education/Training Program; FAMILY PHYSICIAN Orthopaedic Surgery
DX: M25.562 Pain in left knee (principal); G90.A Postural orthostatic tachycardia syndrome [POTS]; F41.9 Anxiety disorder, unspecified; F32.A Depression, unspecified; K58.9 Irritable bowel syndrome, unspecified; E28.2 Polycystic ovarian syndrome; G43.909 Migraine, unspecified, not intractable, without status migrainosus; Z86.718 Personal history of other venous thrombosis and embolism; Z86.711 Personal history of pulmonary embolism; Z86.19 Personal history of other infectious and parasitic diseases
CPT/HCPCS: 99284; 93971

== ENCOUNTER → 2025-04-12 10:57 | Outpatient (REF) | payer BC, SELFPAY ==
[2025-04-12 15:29] LABS: Folate 6.4 ng/ml (2.76-20); Vitamin B12 580 pg/ml (239-931)
== END ==
LOC: REG 10:57
PROVIDERS: ATTENDING PHYSICIAN Nurse Practitioner Family; FAMILY PHYSICIAN Family Medicine
DX: E53.8 Deficiency of other specified B group vitamins (principal); M54.81 Occipital neuralgia; W57.XXXA Bitten or stung by nonvenomous insect and other nonvenomous arthropods, initial encounter
CPT/HCPCS: 36415; 82607; 82746; 83090; 86618

== ENCOUNTER 2025-05-12 18:53 | Emergency (ER) | payer BC, SELFPAY ==
[2025-05-12 18:55] VITALS: BP 142/96
--- NOTE | 2025-05-12 20:48 | ED.GENMED ---
History of Present Illness
General
Chief Complaint: Fatigue
Time Seen by Provider: 05/12/25 20:30
History of Present Illness
History of Present Illness:
24-year-old female presents to the emergency department for evaluation of malaise, states 'I just do not feel right'. She has a history of POTS and receives weekly IV fluid infusions to avoid orthostatic episodes. Presents today with this to feel
unwell. She also notes that she has had light vaginal spotting for the past 14 days after very irregular menses for the previous 2 years.
Past History
Past History
ED Past Medical History: Psychiatric (Anxiety, Depression) and Other ( IBS, ovarian cyst, colitis, DVT/PE, C-diff, PCOS, POTS, Migraines, )
ED Past Surgical History: Gynecological (Hymenectomy ) and Orthopedic (Left knee meniscus and MPFO)
Social History
Tobacco: Non-smoker
Alcohol: None
Drug: None
Personal: Single
Living: with roommate
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
Family History
Family History: Other
Review of Systems
Review of Systems
Allergies reviewed?: Yes
All Other Systems: ROS reviewed and negative except as documented in HPI and ROS
Phy Exam
Physical Exam
Physical Exam:
GEN: Well appearing, NAD, WDWN
HEENT: Oral mucosa moist, no scleral icterus
Cardiac: Regular rate and rhythm, no murmurs
Lung: No respiratory distress, no tachypnea
MSK: No gross deformity or injuries
Skin: Good color, no pallor or jaundice, no rashes
Neuro: AO x3, moves all extremities freely
Psych: Calm, cooperative
Course
Orders/Labs/Results
Orders:
Orders
05/12/25 20:47
Lactated Ringers [Lr] 500 ml IV BOLUS
05/12/25 20:48
Test Result ONCE
05/12/25 20:51
Complete Blood Count/With Diff Urgent
Comprehensive Metabolic Panel Urgent
HCG, Serum Qualitative Screen Urgent
Magnesium Urgent
05/12/25 20:52
COVID-19 Antigen Urgent
Source: Nasal Swab
Abnormal Lab Results
05/12/25
20:51
Abs Immat Gran (auto) 0.1 H 10^3/uL
(0-0.05)
Absolute Monos (auto) 0.7 H 10^3/uL
(0.1-0.6)
Immature Gran % 0.8 H %
(0-0.5)
ALT 46 H U/L
(0-35)
05/12/25 20:51
05/12/25 20:51
Vital Signs
Initial and Last Documented VS:
Initial Vital Signs
Temp Pulse Resp BP Pulse Ox
98.4 F 79 18 142/96 98
05/12/25 18:55 05/12/25 18:55 05/12/25 18:55 05/12/25 18:55 05/12/25 18:55
Last Documented Vital Signs
Temp Pulse Resp BP Pulse Ox
98.4 F 79 18 142/96 98
05/12/25 18:55 05/12/25 18:55 05/12/25 18:55 05/12/25 18:55 05/12/25 20:48
MDM/Problems Addressed
MDM/Problems Addressed:
Labs are reassuring particularly normal hemoglobin in the setting of persistent vaginal bleeding. Negative test. No indication for ultrasound she has no abdominal or pelvic pain. Given small bolus of IV fluids, encouraged outpatient [facility]
follow-up
*Pulse Oximetry
SaO2: 98
Oxygen Mode of Delivery: Room air
Patient hypoxic: no
*Critical Care Note
Total Time (30-74mins, 75-104mins- exclusive of procedures): Not Applicable
ED Attending Note
-
Portions of this chart may have been created with voice recognition software.� Occasional wrong word or��sound alike� substitutions may have occurred due to the inherent limitations of voice recognition software.
Discharge Plan
Departure
Patient Disposition: Home (Routine Discharge)
Date of Disposition: 05/12/25
Time of Disposition: 21:41
Patient with high blood pressure during this ER visit?: No
Discharge Problem:
Fatigue
Instructions: Fatigue (DC)
Prescriptions:
No Action
metoprolol succinate 25 mg Tablet Extended Release 24 Hr
25 mg PO DAILY
acetaminophen 325 mg Tablet
650 mg PO Q4HPRN PRN (Reason: mild pain/SUN/temp> 100.4F) Qty: 0 0RF
enoxaparin [Lovenox] 80 mg/0.8 mL Syringe
120 mg SC DAILY
metoprolol succinate 50 mg tablet extended release 24 hr
50 mg PO DAILY 14 Days Qty: 14 0RF
ondansetron 4 mg Tablet,Disintegrating
4 mg PO TIDPRN PRN (Reason: nausea/vomiting) Qty: 12 0RF
ondansetron 4 mg tablet,disintegrating
4 mg PO Q8H PRN (Reason: nausea and vomiting) Qty: 10 0RF
Zoloft
75 mg PO DAILY
Referrals:
NONE,* [Active, Internal Medicine]
Interventions
Interventions:
*Risk Screen - Suicide Last Done: 05/12/25 21:00
*General Assessment Last Done: 05/12/25 21:00
*Neglect/Abuse Screening Last Done: 05/12/25 21:00
*Nursing Disposition Last Done: 05/12/25 22:18
Discharge Date and Time
Print Language: PORTUGUESE
[2025-05-12] MEDS: LR 500 IV (21:02)
[2025-05-12 21:09] LABS: Hematocrit 38.3 % (37.0-47.0); Hemoglobin 13.2 g/dL (12.0-16.0); Mean Corp Hgb Conc. 34.5 g/dL (33.0-37.0); Mean Corpuscular Volume 86.7 fL (81.0-99.0); Nucleated Red Blood Cells % 0 %; Platelet Count 314 10^3/uL (130-400); Red Cell Dist. Width 13.0 % (11.5-14.5)
[2025-05-12 21:23] LABS: ALT (SGPT) 46 U/L (0-35); AST (SGOT) 27 U/L (14-36); Albumin 4.5 g/dl (3.5-5.0); Alkaline Phosphatase 51 U/L (38-126); Blood Urea Nitrogen 11 mg/dl (7-17); Calcium 9.5 mg/dl (8.4-10.2); Carbon Dioxide 24 mmol/L (22-30); Chloride 105 mmol/L (98-107); Glucose 90 mg/dl (70-99); HCG, Serum Qualitative Screen Negative; Magnesium 1.9 mg/dl (1.6-2.3); Potassium 4.2 mmol/L (3.5-5.1); Sodium 137 mmol/L (135-145); Total Protein 7.8 g/dl (6.3-8.2); eGFR > 60.00
[2025-05-12 21:24] LABS: COVID-19 Antigen Negative (Negative)
== END 2025-05-12 22:18 | disposition home or self-care (01) ==
LOC: EMR 18:53
PROVIDERS: Physician Assistant; EMERGENCY PHYSICIAN Emergency Medicine; FAMILY PHYSICIAN Family Medicine
DX: N93.9 Abnormal uterine and vaginal bleeding, unspecified (principal); R53.83 Other fatigue; E28.2 Polycystic ovarian syndrome
CPT/HCPCS: 99283; 80053; 83735; 84703; 85025; 87811

== ENCOUNTER → 2025-05-13 12:50 | Outpatient (REF) | payer BC, SELFPAY | LOC: HWRAD 12:50 | PROVIDERS: ATTENDING PHYSICIAN Obstetrics & Gynecology; FAMILY PHYSICIAN Family Medicine | DX: N83.202 Unspecified ovarian cyst, left side (principal); N83.291 Other ovarian cyst, right side | CPT/HCPCS: 76830; 76856 ==

== ENCOUNTER 2025-05-31 11:34 | Emergency (ER) | payer BC, SELFPAY ==
[2025-05-31 11:41] VITALS: BP 158/94
[2025-05-31 13:02] VITALS: BP 101/53; BMI 33.1
[2025-05-31 13:05] LABS: Hematocrit 37.8 % (37.0-47.0); Hemoglobin 12.8 g/dL (12.0-16.0); Mean Corp Hgb Conc. 33.9 g/dL (33.0-37.0); Mean Corpuscular Volume 86.5 fL (81.0-99.0); Nucleated Red Blood Cells % 0 %; Platelet Count 297 10^3/uL (130-400); Red Cell Dist. Width 12.9 % (11.5-14.5)
[2025-05-31 13:15] LABS: HCG, Serum Qualitative Screen Negative
[2025-05-31 13:23] LABS: ALT (SGPT) 62 U/L (0-35); AST (SGOT) 42 U/L (14-36); Albumin 4.6 g/dl (3.5-5.0); Alkaline Phosphatase 64 U/L (38-126); Blood Urea Nitrogen 8 mg/dl (7-17); Calcium 9.4 mg/dl (8.4-10.2); Carbon Dioxide 23 mmol/L (22-30); Chloride 105 mmol/L (98-107); Estimated Creatinine Clearance > 125 ml/min; Glucose 92 mg/dl (70-99); Potassium 4.2 mmol/L (3.5-5.1); Sodium 136 mmol/L (135-145); Total Protein 8.0 g/dl (6.3-8.2); eGFR > 60.00
--- NOTE | 2025-05-31 16:26 | ED.GENMED ---
History of Present Illness
General
Chief Complaint: Abdominal Pain
Source: patient and spouse
Exam Limitations: none
Time Seen by Provider: 05/31/25 12:22
History of Present Illness
History of Present Illness:
Note:
CHIEF COMPLAINT(S)
Abdominal or pelvic discomfort with bloating and tenderness.
HISTORY OF PRESENT ILLNESS
The patient is a 24-year-old female who presents with pelvic discomfort and bloating. The symptoms began prior to her visit and have persisted, causing noticeable pressure in the pelvic region. She describes the sensation as tender and similar but
slightly different from past experiences of abdominal discomfort. There is tenderness predominantly in the left pelvic area and lower left quadrant, but not excruciating pain. The patient mentions recent difficulty with lab draws and has had a
recent travel experience, which was uneventful medically. She denies any recent fever. Her last menstrual period was 24 days ago, and she is currently on subcutaneous Lovenox injections. She denies any gastrointestinal issues and reports normal
bowel movements.
PHYSICAL EXAM
General: Alert, no acute distress.
Skin: Warm, dry. Ecomosis noted in areas related to subcutaneous Lovenox injections.
Head: Normocephalic, atraumatic.
Neck: Supple, trachea midline.
Eye, Ears, Nose, Mouth and Throat: Oral mucosa moist.
Cardiovascular: Normal peripheral perfusion, No edema.
Respiratory: Respirations are non-labored.
Gastrointestinal: Abdomen without rebound or guarding. Tenderness noted in the left pelvic area and left lower quadrant.
Back: Normal range of motion, Normal alignment.
Musculoskeletal: Normal range of motion, normal strength.
Neurological: Alert and oriented to person, place, time, and situation, No focal neurological deficit observed.
Psychiatric: Cooperative, appropriate mood & affect.
PLAN
- Order an ultrasound, with a preference for a transvaginal approach for a more detailed study.
- Obtain basic laboratory tests and attempt to collect urine samples for analysis.
- Monitor and assess the tenderness in the left pelvic area.
DIFFERENTIAL DIAGNOSIS
The Differential Diagnosis includes, in no particular order and is not limited to:
1. Ovarian cyst
2. Pelvic inflammatory disease
3. Endometriosis
4. Ectopic
5. Diverticulitis
6. Urinary tract infection
7. Gastroenteritis
8. Appendicitis
9. Hernia
10. Fibroids
CARE-UPDATE
05/31/25 - 16:28
Patient reports ongoing abdominal discomfort, initially suspected to be gastrointestinal but ruled out due to normal white blood cell count and absence of significant symptoms such as intractable vomiting. Potential causes like ovarian torsion and
large cysts were considered unlikely. Patient experiences a persistent ache, felt as pressure and occasional spasm without acute popping sensation. Recent travel and dietary changes noted, with speculation on mild constipation despite bowel
movements.
Recommended to monitor symptoms with conservative management, including rest and avoiding abdominal strain. Advised to take standard analgesics and consider stool softeners if bowel movements remain incomplete. Patient instructed to return if new
symptoms arise such as fever, severe pain, or significant gastrointestinal changes. Follow-up with primary care doctor if symptoms persist and report any changes such as severe constipation, diarrhea, or new alarming symptoms. Fluids were
administered during visit and hospital discharge was initiated.
Disposition:
SUMMARY OF ENCOUNTER
The patient, a 24-year-old female, presented to the emergency department with complaints of pelvic discomfort and bloating mainly affecting the left pelvic area and lower left quadrant. Despite previous concerns, laboratory evaluations, including a
complete blood count (CBC), comprehensive metabolic panel (CMP), and test, returned normal values. A pelvic ultrasound was conducted, showing no sign of an acute process. The clinical examination was largely unremarkable. Given the absence
of significant findings and her stable condition, school-related stress and dietary changes are considered potential contributing factors to her symptoms.
PLAN
The patient is advised to monitor her symptoms conservatively. It is recommended that she use stool softeners to address any potential mild constipation linked to recent travel or dietary changes.
INDEPENDENT REVIEW OF LABS AND INTERPRETATION OF TESTS
My independent review of the CBC shows normal white blood cell count and no signs of infection, aligning with the normal findings. My independent review of the CMP is grossly unremarkable, indicating stable metabolic functions. The test
result was negative.
My independent interpretation of the pelvic ultrasound indicates no evidence of an acute process in the pelvis.
PATIENT EDUCATION AND COUNSELING
The patient was educated on recognizing any signs of worsening symptoms, such as the onset of fever or severe abdominal pain. She was counseled on the possibility that her symptoms could be related to recent travel, dietary changes, or stress.
FOLLOW-UP INSTRUCTIONS
The patient was instructed to monitor her symptoms and return to the emergency department if her symptoms progress or new concerning signs develop. She is also advised to follow up with her primary care physician for ongoing evaluation and
management if symptoms persist.
MEDICATION RECONCILIATION
No new medications were administered during the visit. The use of [id number]-oxl-lopjegc stool softeners was recommended.
MEDICAL DECISION MAKING
-Complexity of Data Reviewed: Past medical history affecting care is not significant in this episode. Differential diagnosis included ovarian cyst, pelvic inflammatory disease, endometriosis, ectopic , diverticulitis, urinary tract
infection, gastroenteritis, appendicitis, hernia, and fibroids.
-Data:
Category 1
Reviewed laboratory tests including CBC, CMP, and test. Conducted and independently interpreted pelvic ultrasound.
Category 3
The decision to manage symptoms conservatively was concluded without consulting other specialists, based on the available test results and examination.
DIAGNOSIS
Abdominal pain and bloating (R10.9)
Past History
Past History
ED Past Medical History: Psychiatric (Anxiety, Depression) and Other ( IBS, ovarian cyst, colitis, DVT/PE, C-diff, PCOS, POTS, Migraines, )
ED Past Surgical History: Gynecological (Hymenectomy ) and Orthopedic (Left knee meniscus and MPFO)
Social History
Tobacco: Non-smoker
Alcohol: None
Drug: None
Personal: Single
Living: with roommate
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
Family History
Family History: Other
Phy Exam
Physical Exam
Physical Exam:
.
Course
Orders/Labs/Results
Orders:
Orders
05/31/25 11:44
Test Result ONCE
05/31/25 12:34
US Pelvis W Transvag Combined Urgent
Comment:
Reason For Exam: L pelvic pain, h/o cysts
05/31/25 12:59
Complete Blood Count/With Diff Urgent
Comprehensive Metabolic Panel Urgent
HCG, Serum Qualitative Screen Urgent
Comment: Notify provider if positive test present
Abnormal Lab Results
05/31/25
12:59
Abs Immat Gran (auto) 0.1 H 10^3/uL
(0-0.05)
Immature Gran % 1.0 H %
(0-0.5)
AST 42 H U/L
(14-36)
ALT 62 H U/L
(0-35)
05/31/25 12:59
05/31/25 12:59
Vital Signs
Initial and Last Documented VS:
Initial Vital Signs
Temp Pulse Resp BP Pulse Ox
98.0 F 88 16 158/94 100
05/31/25 11:41 05/31/25 11:41 05/31/25 11:41 05/31/25 11:41 05/31/25 11:41
Last Documented Vital Signs
Temp Pulse Resp BP Pulse Ox
98.0 F 63 16 101/53 98
05/31/25 11:41 05/31/25 13:02 05/31/25 13:02 05/31/25 13:02 05/31/25 13:02
*Pulse Oximetry
SaO2: 98
Oxygen Mode of Delivery: Room air
Patient hypoxic: no
*Critical Care Note
Total Time (30-74mins, 75-104mins- exclusive of procedures): Not Applicable
ED Attending Note
-
Portions of this chart may have been created with voice recognition software.� Occasional wrong word or��sound alike� substitutions may have occurred due to the inherent limitations of voice recognition software.
Discharge Plan
Departure
Patient Disposition: Home (Routine Discharge)
Date of Disposition: 05/31/25
Time of Disposition: 16:27
Patient with high blood pressure during this ER visit?: No
Discharge Problem:
Abdominal pain
Instructions: Abdominal Pain
Prescriptions:
No Action
metoprolol succinate 25 mg Tablet Extended Release 24 Hr
25 mg PO DAILY
acetaminophen 325 mg Tablet
650 mg PO Q4HPRN PRN (Reason: mild pain/SUN/temp> 100.4F) Qty: 0 0RF
enoxaparin [Lovenox] 80 mg/0.8 mL Syringe
120 mg SC DAILY
metoprolol succinate 50 mg tablet extended release 24 hr
50 mg PO DAILY 14 Days Qty: 14 0RF
ondansetron 4 mg Tablet,Disintegrating
4 mg PO TIDPRN PRN (Reason: nausea/vomiting) Qty: 12 0RF
ondansetron 4 mg tablet,disintegrating
4 mg PO Q8H PRN (Reason: nausea and vomiting) Qty: 10 0RF
Zoloft
75 mg PO DAILY
Referrals:
Jennifer Jackson MD [Family Provider, Family Practice]
Activity Restrictions/Additional Instructions:
Return immediately for fevers, worsening pain, vomiting or any other concerns. Please see your doctor in the next 1 week if symptoms persist. If you are not having regular bowel movements consider stool softener as discussed.
Interventions
Interventions:
*Risk Screen - Suicide Last Done: 05/31/25 11:41
*General Assessment Last Done: 05/31/25 11:41
*Neglect/Abuse Screening Last Done: 05/31/25 11:41
*ED- Fall Risk Assessment Last Done: 05/31/25 13:02
*ED COVID-19 Vaccine History Last Done: 05/31/25 13:02
*ED Influenza Vaccine History Last Done: 05/31/25 13:02
YN-Njobzp-Vfdyurcxvp Assessment Last Done: 05/31/25 13:30
Discharge Date and Time
Print Language: UKRAINIAN
[2025-05-31 16:36] VITALS: BP 109/56
== END 2025-05-31 16:36 | disposition home or self-care (01) ==
LOC: EMR 11:34
PROVIDERS: Emergency Medicine; EMERGENCY PHYSICIAN Emergency Medicine; FAMILY PHYSICIAN Family Medicine
DX: R10.22 Pelvic and perineal pain left side (principal); R14.0 Abdominal distension (gaseous); E28.2 Polycystic ovarian syndrome; K58.9 Irritable bowel syndrome, unspecified
CPT/HCPCS: 99284; 76830; 76856; 80053; 84703; 85025

== ENCOUNTER 2025-06-01 13:58 | Emergency (ER) | payer BC, SELFPAY ==
[2025-06-01 14:02] VITALS: BP 146/107
[2025-06-01 15:44] VITALS: BMI 33.2
[2025-06-01 16:39] LABS: Urine Character Clear (Clear)
[2025-06-01 16:41] LABS: Hematocrit 42.4 % (37.0-47.0); Hemoglobin 14.0 g/dL (12.0-16.0); Mean Corp Hgb Conc. 33.0 g/dL (33.0-37.0); Mean Corpuscular Volume 87.6 fL (81.0-99.0); Nucleated Red Blood Cells % 0 %; Platelet Count 342 10^3/uL (130-400); Red Cell Dist. Width 13.1 % (11.5-14.5)
[2025-06-01] MEDS: NSS 1000 IV (16:41)
[2025-06-01 16:45] LABS: HCG, Serum Qualitative Screen Negative
[2025-06-01 16:50] LABS: ALT (SGPT) 72 U/L (0-35); AST (SGOT) 38 U/L (14-36); Albumin 5.0 g/dl (3.5-5.0); Alkaline Phosphatase 66 U/L (38-126); Blood Urea Nitrogen 10 mg/dl (7-17); Calcium 10.0 mg/dl (8.4-10.2); Carbon Dioxide 24 mmol/L (22-30); Chloride 104 mmol/L (98-107); Estimated Creatinine Clearance > 125 ml/min; Glucose 88 mg/dl (70-99); Lipase 67 U/L (23-300); Potassium 4.2 mmol/L (3.5-5.1); Sodium 139 mmol/L (135-145); Total Protein 8.7 g/dl (6.3-8.2); eGFR > 60.00
[2025-06-01 17:36] LABS: Urine Urothelial Cell 0-2 /LPF (FEW); Urine White Cell 0-2 /HPF (0-5)
--- NOTE | 2025-06-01 18:28 | ED.GENMED ---
History of Present Illness
General
Chief Complaint: Abdominal Pain
Source: patient
Time Seen by Provider: 06/01/25 15:24
History of Present Illness
History of Present Illness:
24-year-old female with past medical history of DVT/PE, POTS, previous C. difficile colitis, ovarian cyst, PCOS, anxiety and depression presenting back to the emergency department for evaluation of continued abdominal pain and nausea as well as a
bloating sensation. Patient has been seen for this issue many times, follows with GI who has performed multiple colonoscopies and endoscopies but there is an unclear diagnosis (thought to be related to either colitis or IBS) patient stating that
the symptoms today do feel little bit different than usual. Patient was seen in this ER yesterday and treated with labs and an ultrasound which did not yield any acute pathology. Patient states she woke up today feeling fine but when she attempted
to eat breakfast and drink some liquids the symptoms returned. It is noted that patient was recently on her honeymoon and traveled recently but she did not eat anything different or out of the ordinary than what she is used to. She denies any
significant abdominal surgeries. There are no fevers, chills, rigors, urinary symptoms or bowel changes.
Past History
Past History
ED Past Medical History: Psychiatric (Anxiety, Depression) and Other ( IBS, ovarian cyst, colitis, DVT/PE, C-diff, PCOS, POTS, Migraines, )
ED Past Surgical History: Gynecological (Hymenectomy ) and Orthopedic (Left knee meniscus and MPFO)
Social History
Tobacco: Non-smoker
Alcohol: None
Drug: None
Personal: Single
Living: with roommate
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
Family History
Family History: Other
Review of Systems
Review of Systems
All Other Systems: ROS reviewed and negative except as documented in HPI and ROS
Phy Exam
Physical Exam
Physical Exam:
GENERAL: Alert , in no apparent distress, anxious
EYE: clear conjunctiva b/l
HEAD: NCAT
ENT: o/p clr, mmm.
CARDIAC: Regular rate and rhythm .
LUNGS: Clear breath sounds bilaterally, no acute respiratory distress, no wheezes/rales/rhonchi
ABDOMEN: Soft, without focal tenderness, no r/g, no cvat, negative Foote sign, no tenderness at McBurney's point
NEUROLOGICAL: Alert and oriented
SKIN: Warm and dry, skin intact.
MUSCULOSKELETAL: No edema, well perfused.
PSYCH: Normal and appropriate interaction.
Scores
Heart Failure Risk
Heart Failure Risk Score: Not Applicable
Heart Score for Chest Pain Patients
STEMI patient?: Not applicable
Withdrawal Assessment of Alcohol
Withdrawal Assessment Completed?: Not applicable
Course
Orders/Labs/Results
Orders:
Orders
06/01/25 16:19
Test Result ONCE
06/01/25 16:25
Complete Blood Count/With Diff Urgent
Comprehensive Metabolic Panel Urgent
HCG, Serum Qualitative Screen Urgent
Lipase Urgent
Urinalysis Reflex To Culture Urgent
Date Specimen was Collected: 06/01/25
Time Specimen was Collected: 16:24
Urine Microscopic Reflex Cult Urgent
Urine Culture Urgent
MARGARET Source: U
Specimen Description:
Date Specimen was Collected: 06/01/25
Time Specimen was Collected: 16:24
06/01/25 16:37
0.9% Sodium Chloride 1000 ml [Nss] 1,000 ml IV BOLUS
06/01/25 17:17
CR Abdomen - 1 View Urgent
Comment:
Reason For Exam: abdominal pain
Abnormal Lab Results
06/01/25
16:25
AST 38 H U/L
(14-36)
ALT 72 H U/L
(0-35)
Total Protein 8.7 H g/dl
(6.3-8.2)
Ur Occult Blood Reflex 1+ A
(Negative)
Urine RBC 3-6 A /HPF
(0-2)
Urine Bacteria (Reflex) Moderate A
(Negative)
06/01/25 16:25
06/01/25 16:25
Vital Signs
Initial and Last Documented VS:
Initial Vital Signs
Temp Pulse Resp BP Pulse Ox
98.2 F 114 18 146/107 100
06/01/25 14:02 06/01/25 14:02 06/01/25 14:02 06/01/25 14:02 06/01/25 14:02
Last Documented Vital Signs
Temp Pulse Resp BP Pulse Ox
98.2 F 114 18 146/107 100
06/01/25 14:02 06/01/25 14:02 06/01/25 14:02 06/01/25 14:02 06/01/25 18:29
MDM/Problems Addressed
Differential Diagnosis Includes:
IBS
Colitis
Diverticulitis
Appendicitis
Cholecystitis
UTI
Mesenteric Ischemia (much less likely given patient on lovenox daily and is compliant with all meds)
MDM/Problems Addressed:
24-year-old female presenting to the ER for evaluation of abdominal pain, seen in the ER yesterday with no specified etiology found. This is a noted chronic issue for the patient that has been worked up many times in this emergency department, as
an outpatient with GI as well as she has been seen at other emergency with no specific etiologies for her pain. Over the course of the last few years patient has had 7+ CT scans just on her abdomen and pelvis, not including her chest and head. I
discussed with the patient that I have considerable concern for radiation exposure and that given she has been worked up for this chronic GI issue in the past that my suspicion for any surgical abdomen is already very low. We agreed to recheck
labs, urine and reassess and if labs return abnormal we can always add additional tests on. Reassessment following
Chronic conditions affecting care: Other (IBS)
*Radiology
Radiology exam reviewed: radiology read reviewed
*Pulse Oximetry
SaO2: 100
Oxygen Mode of Delivery: Room air
Patient hypoxic: no
*Critical Care Note
Total Time (30-74mins, 75-104mins- exclusive of procedures): Not Applicable
Data Reviewed
Review of Other/Old Records Reveals: Labs, Records and Radiology Studies
Source: patient and records
Comment
Comment:
Patient's labs are reassuring. There is a nonspecific mild elevation of the AST and ALT which is in keeping with patient's previous labs and not any different today. Normal white blood cell count. We ultimately agreed to obtain an x-ray of the
abdomen which came back with a nonspecific bowel gas pattern and no acute abnormalities. Repeat abdominal exam remains reassuring without any focal tenderness, rebound or guarding. I had extensive conversation again with the patient and family who
again feel comfortable foregoing CT scan at this time and following up closely with primary care and GI on an outpatient basis. Aware of return precautions to the ER.
ED Attending Note
-
Portions of this chart may have been created with voice recognition software.� Occasional wrong word or��sound alike� substitutions may have occurred due to the inherent limitations of voice recognition software.
Discharge Plan
Departure
Patient Disposition: Home (Routine Discharge)
Date of Disposition: 06/01/25
Time of Disposition: 18:28
Patient with high blood pressure during this ER visit?: Yes
Discharge Problem:
Abdominal pain
Instructions: Abdominal Pain
Prescriptions:
No Action
polyethylene glycol 3350 [Miralax] 17 gram Powder In Packet
17 g PO DAILYPRN PRN (Reason: constipation)
acetaminophen 500 mg Tablet
1,000 mg PO DAILYPRN PRN (Reason: mild pain)
pravastatin 10 mg tablet
10 mg PO DAILY
Patient Comments:
hasn't taken this 'in weeks', just because she doesn't feel like taking it
sertraline 25 mg tablet
25 mg PO DAILY
Rx Instructions:
take with 50mg for total of 75mg daily
gabapentin 100 mg capsule
100 mg PO HS
metoprolol succinate 25 mg tablet extended release 24 hr
25 mg PO DAILY
sertraline 50 mg tablet
50 mg PO DAILY
Rx Instructions:
take with 25mg for 75mg total daily
simethicone [Gas-X] 80 mg Tablet,Chewable
80 mg PO DAILYPRN PRN (Reason: gas)
enoxaparin 120 mg/0.8 mL syringe
120 mg SC DAILY
Referrals:
Jennifer Jackson MD [Family Provider, Family Practice]
Interventions
Interventions:
*Risk Screen - Suicide Last Done: 06/01/25 14:02
*General Assessment Last Done: 06/01/25 14:02
*Neglect/Abuse Screening Last Done: 06/01/25 15:44
*ED- Fall Risk Assessment Last Done: 06/01/25 15:44
*ED COVID-19 Vaccine History Last Done: 06/01/25 15:44
*ED Influenza Vaccine History Last Done: 06/01/25 15:44
JH-Ohfght-Dckqrstqle Assessment Last Done: 06/01/25 15:44
Discharge Date and Time
Print Language: DIVEHI
[2025-06-01 18:44] VITALS: BP 130/98
== END 2025-06-01 18:55 | disposition home or self-care (01) ==
LOC: EMR 13:58
PROVIDERS: Physician Assistant Medical; EMERGENCY PHYSICIAN Emergency Medicine; FAMILY PHYSICIAN Family Medicine
DX: R10.9 Unspecified abdominal pain (principal); E28.2 Polycystic ovarian syndrome; K58.9 Irritable bowel syndrome, unspecified; Z86.711 Personal history of pulmonary embolism; Z86.718 Personal history of other venous thrombosis and embolism
CPT/HCPCS: 74018; 80053; 81003; 81015; 83690; 84703; 85025; 87086; 96360; 99284

== ENCOUNTER 2025-06-01 20:44 | Emergency (ER) | payer BC, SELFPAY ==
[2025-06-01 20:50] VITALS: BP 133/98
[2025-06-01 21:28] VITALS: BMI 33.2
--- NOTE | 2025-06-01 22:18 | ED.GENMED ---
History of Present Illness
General
Chief Complaint: Abdominal Pain
Source: patient and spouse
Exam Limitations: none
Time Seen by Provider: 06/01/25 21:50
Nursing documentation reviewed up to this point in time: agreed with
History of Present Illness
History of Present Illness:
The patient is a 24-year-old female presenting with severe abdominal pain persisting for a few days. She describes the pain as being unbearable, likening it to 'someone stepping on her abdomen constantly', and indicates it is now radiating upwards.
She reports associated symptoms of nausea, dry heaving, and a sensation of feeling very warm, although no fever has been documented. The patient attempted self-care with acetaminophen, dicyclomine, polyethylene glycol, and simethicone, but found no
relief. Her last bowel movement was longer than usual, occurring on May 01. There is no prior experience of such pain in the past. She has a history of colitis and recurrent Clostridium difficile infections. Patient has been in the
emergency department 2 times previously over the last 2 days. Her most recent visit to the emergency department ended with her being discharged about 1 hour ago. Previous discussions with her healthcare provider led to the consideration of a
computed tomography (CT) scan, which she is now requesting due to the increasing severity of her symptoms. Patient has had many CAT scans at this hospital and admits to CAT scans at an outside hospital as well.
History of colitis and multiple episodes of Clostridium difficile infection.
Past History
Past History
ED Past Medical History: Psychiatric (Anxiety, Depression) and Other ( IBS, ovarian cyst, colitis, DVT/PE, C-diff, PCOS, POTS, Migraines, )
ED Past Surgical History: Gynecological (Hymenectomy ) and Orthopedic (Left knee meniscus and MPFO)
Social History
Tobacco: Non-smoker
Alcohol: None
Drug: None
Personal: Single
Living: with roommate
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
Family History
Family History: Other
Phy Exam
Physical Exam
Physical Exam:
General: Alert, minimal acute distress.
Skin: Warm, dry.
Head: Normocephalic, atraumatic.
Neck: Supple, trachea midline.
Eye, Ears, Nose, Mouth, and Throat: Oral mucosa moist.
Cardiovascular: Normal peripheral perfusion, no edema.
Respiratory: Respirations are non-labored.
Gastrointestinal: Abdomen nondistended with some diffuse tenderness. Good bowel sounds x 4 quadrants. Negative rigidity, negative guarding negative Foote sign. Negative [place]'s point tenderness.
Back: Normal range of motion, normal alignment.
Musculoskeletal: Normal range of motion, normal strength.
Neurological: Alert and oriented to person, place, time, and situation. No focal neurological deficit observed.
Psychiatric: Cooperative, appropriate mood and affect.
Course
Orders/Labs/Results
Orders:
Orders
06/01/25 22:17
Urinalysis Reflex To Culture Urgent
Test Result ONCE
06/01/25 22:22
Complete Blood Count/With Diff Urgent
Comprehensive Metabolic Panel Urgent
HCG, Serum Qualitative Screen Urgent
Lipase Urgent
06/01/25 23:22
CT Abd/pelvis W Iv Cont Urgent
Comment:
Reason For Exam: LLQ abd pain
Abnormal Lab Results
06/01/25
22:22
Abs Immat Gran (auto) 0.1 H 10^3/uL
(0-0.05)
Immature Gran % 0.7 H %
(0-0.5)
ALT 62 H U/L
(0-35)
06/01/25 22:22
06/01/25 22:22
Vital Signs
Initial and Last Documented VS:
Initial Vital Signs
Temp Pulse Resp BP
98.1 F 91 16 133/98
06/01/25 20:50 06/01/25 20:50 06/01/25 20:50 06/01/25 20:50
Last Documented Vital Signs
Temp Pulse Resp BP
98.1 F 91 16 133/98
06/01/25 20:50 06/01/25 20:50 06/01/25 20:50 06/01/25 20:50
*Pulse Oximetry
Oxygen Mode of Delivery: Room air
Update Note
Update Note:
The Differential Diagnosis includes, in no particular order and is not limited to:
1. Appendicitis
2. Cholecystitis
3. Pancreatitis
4. Intestinal Obstruction
5. Ulcerative Colitis Flare
6. Clostridium Difficile Infection
7. Gastroenteritis
8. Peptic Ulcer Disease
9. Irritable Bowel Syndrome
10. Renal Colic
The patient, a 24-year-old female, was seen in the emergency department due to severe abdominal pain persistent for several days, accompanied by nausea and dry heaving. Given her history of colitis and recurrent Clostridium difficile infections, and
the severity of her symptoms, a CT scan of the abdomen was warranted to rule out conditions such as appendicitis, cholecystitis, or other abdominal pathologies. She was treated and stabilized in the emergency department.
The patient presented with severe abdominal pain with nausea and a sensation of warmth but no fever, warranting further investigation due to her past medical history and the ineffective self-treatment. Possible differential diagnoses include
appendicitis, cholecystitis, pancreatitis, intestinal obstruction, ulcerative colitis flare, Clostridium difficile infection, gastroenteritis, peptic ulcer disease, irritable bowel syndrome, or renal colic.
1. Number and Complexity of Problems Addressed: Chronic conditions affecting care include the history of colitis and recurrent Clostridium difficile infections. Differential diagnosis list includes appendicitis, cholecystitis, pancreatitis,
intestinal obstruction, ulcerative colitis flare, Clostridium difficile infection, gastroenteritis, peptic ulcer disease, irritable bowel syndrome, and renal colic.
2. Data:
- Category 1: My independent interpretation of the forthcoming CT scan will guide further management, but the present symptoms and the patients history guided the decision to conduct this imaging.
3. Risk:
- Consideration of Admission/Observation: Escalation of care including admission/observation was considered given the complexity and risk of the patients presenting complaint, exam findings, and her underlying comorbidities. However, ultimately I
feel the patient is safe for outpatient management with close follow up. Reasoning: Work-up will be reassuring, does not reveal any acute life/organ threatening processes, patients symptoms will be closely monitored with the CT results, vitals are
stable, patient agreeable with discharge, reliable for follow-up.
I like my predecessors are concerned about the amount of CAT scans that this patient has had. Patient understands that radiation is cumulative and that a CT scan does carry within a significant amount of risk. Patient willing to sign consent
acknowledging this fact if we proceed with CT scan.
Lab work, when compared to earlier shows some improvement. Patient still persistent and wanting CT scan.
Discussed lab work with patient
NAME: TITI ALCANTARA
DATE OF EXAM: 06/01/2025
Patient No: [id number]
Physician: SIS
Date of : 2000
Past Medical History (entered by Technologist):
Reason For Exam (entered by Technologist):
Other Notes (entered by Technologist): Pt returning for 3rd time thid weekend for LLQ pain that radiates to LUQ. +n/-v/+d, denies blood in stool.
Prior sent
Additional Information (per [facility]iologist):
CT ABDOMEN AND PELVIS (with IV contrast)
Comparison 06/22/2024
IMPRESSION:
No acute abnormality.
Lower thorax unremarkable. No free air or fluid.
Mild fatty liver stable. Gallbladder and other solid organs unremarkable.
Anteverted uterus, ovaries, and minimally filled urinary bladder unremarkable. No inguinal hernia.
Minimal fecal loading with normal appendix. Stomach and small bowel unremarkable.
Vessels unremarkable. No bulky adenopathy. Tiny fat-containing umbilical hernia. Subcutaneous anterior abdominal wall nodules, likely from injections. No acute or suspicious osseous lesion.
Case finalized on 06/02/25 00:24 EST
Los Spence M.D.
This report has been electronically signed and verified by the Radiologist whose name is printed above.
Discussed CAT scan with patient. She will follow-up with GI.
ED Attending Note
-
Portions of this chart may have been created with voice recognition software.� Occasional wrong word or��sound alike� substitutions may have occurred due to the inherent limitations of voice recognition software.
Discharge Plan
Departure
Patient Disposition: Home (Routine Discharge)
Date of Disposition: 06/02/25
Time of Disposition: 00:39
Patient with high blood pressure during this ER visit?: Yes
Condition: Good
Discharge Problem:
Abdominal pain
Instructions: Clear Liquid Diet, Abdominal Pain, BLOOD PRESSURE
Prescriptions:
No Action
polyethylene glycol 3350 [Miralax] 17 gram Powder In Packet
17 g PO DAILYPRN PRN (Reason: constipation)
acetaminophen 500 mg Tablet
1,000 mg PO DAILYPRN PRN (Reason: mild pain)
pravastatin 10 mg tablet
10 mg PO DAILY
Patient Comments:
hasn't taken this 'in weeks', just because she doesn't feel like taking it
sertraline 25 mg tablet
25 mg PO DAILY
Rx Instructions:
take with 50mg for total of 75mg daily
gabapentin 100 mg capsule
100 mg PO HS
metoprolol succinate 25 mg tablet extended release 24 hr
25 mg PO DAILY
sertraline 50 mg tablet
50 mg PO DAILY
Rx Instructions:
take with 25mg for 75mg total daily
simethicone [Gas-X] 80 mg Tablet,Chewable
80 mg PO DAILYPRN PRN (Reason: gas)
enoxaparin 120 mg/0.8 mL syringe
120 mg SC DAILY
dicyclomine 10 mg capsule
10 mg PO TID Qty: 30 0RF
ondansetron 4 mg tablet,disintegrating
4 mg PO TIDPRN PRN (Reason: nausea/vomiting) Qty: 10 0RF
Referrals:
Jennifer Jackson MD [Family Provider, Family Practice]
Activity Restrictions/Additional Instructions:
Thank You for choosing [facility].
It was a pleasure meeting you and taking part in your care. We hope for your continued healing and wellness.
Please read discharge instructions in their entirety. However, they are for general education and may not describe your exact diagnosis at discharge. Information on your ER visit and medical conditions were discussed with you along with appropriate
follow up information...
If indicated, please take your medications as instructed and indicated on discharge paperwork.
Please schedule a follow up appointment as directed. Call to schedule an appointment
Please return to the emergency department with ANY change in, persisting, or worsening of symptoms. If any of your symptoms do not improve, or persist, or become more severe within 6-12 hours, please return to the emergency department for further
care.
Please return to the emergency department if you develop a headache, neck pain/stiffness, fever greater than 100.4F, chest pain, shortness of breath, persistent nausea, vomiting, slurred speech, difficulty walking, numbness/tingling, weakness, signs
of infection or any other symptoms that are worrisome to you.
If you have any questions or concerns please do not hesitate to call the Hospital at .
Interventions
Interventions:
*Risk Screen - Suicide Last Done: 06/01/25 20:50
*General Assessment Last Done: 06/01/25 21:30
*Neglect/Abuse Screening Last Done: 06/01/25 20:50
*ED- Fall Risk Assessment Last Done: 06/01/25 21:29
*ED COVID-19 Vaccine History Last Done: 06/01/25 21:29
*ED Influenza Vaccine History Last Done: 06/01/25 21:29
VK-Vwbpck-Cgmidcnoko Assessment Last Done: 06/01/25 22:26
Discharge Date and Time
Print Language: YAKUT
[2025-06-01 22:30] LABS: Hematocrit 39.0 % (37.0-47.0); Hemoglobin 13.3 g/dL (12.0-16.0); Mean Corp Hgb Conc. 34.1 g/dL (33.0-37.0); Mean Corpuscular Volume 86.9 fL (81.0-99.0); Nucleated Red Blood Cells % 0 %; Platelet Count 315 10^3/uL (130-400); Red Cell Dist. Width 13.0 % (11.5-14.5)
[2025-06-01 22:56] LABS: HCG, Serum Qualitative Screen Negative
[2025-06-01 23:00] LABS: ALT (SGPT) 62 U/L (0-35); AST (SGOT) 31 U/L (14-36); Albumin 4.5 g/dl (3.5-5.0); Alkaline Phosphatase 63 U/L (38-126); Blood Urea Nitrogen 8 mg/dl (7-17); Calcium 9.5 mg/dl (8.4-10.2); Carbon Dioxide 24 mmol/L (22-30); Chloride 105 mmol/L (98-107); Estimated Creatinine Clearance > 125 ml/min; Glucose 99 mg/dl (70-99); Lipase 46 U/L (23-300); Potassium 4.2 mmol/L (3.5-5.1); Sodium 136 mmol/L (135-145); Total Protein 8.0 g/dl (6.3-8.2); eGFR > 60.00
--- NOTE | 2025-06-01 23:24 | EDRN ---
Dr Capellan at bedside and presented patient with a consent form for radiation concern r/t accumulation of CT scans. Pt signed consent
== END 2025-06-02 00:48 | disposition home or self-care (01) ==
LOC: EMR 20:44
PROVIDERS: EMERGENCY PHYSICIAN Student in an Organized Health Care Education/Training Program; FAMILY PHYSICIAN Family Medicine
DX: R10.9 Unspecified abdominal pain (principal); R11.0 Nausea; K42.9 Umbilical hernia without obstruction or gangrene; K76.0 Fatty (change of) liver, not elsewhere classified; K58.9 Irritable bowel syndrome, unspecified; E28.2 Polycystic ovarian syndrome
CPT/HCPCS: 99284; 74177; 80053; 83690; 84703; 85025; Q9967

== ENCOUNTER → 2025-06-12 15:37 | Outpatient (REF) | payer BC, SELFPAY | LOC: RAD 15:37 | PROVIDERS: ATTENDING PHYSICIAN Internal Medicine Gastroenterology; FAMILY PHYSICIAN Family Medicine | DX: K56.41 Fecal impaction (principal) | CPT/HCPCS: 74018 ==

== ENCOUNTER → 2025-06-14 11:11 | Outpatient (REF) | payer BC, SELFPAY | LOC: REG 11:11 | PROVIDERS: ATTENDING PHYSICIAN Internal Medicine Gastroenterology | DX: R19.7 Diarrhea, unspecified (principal); K58.9 Irritable bowel syndrome, unspecified; K52.9 Noninfective gastroenteritis and colitis, unspecified | CPT/HCPCS: 83993; 87045; 87046; 87324; 87328; 87329; 87427; 87449 ==

== ENCOUNTER 2025-06-18 17:29 | Emergency (ER) | payer BC, SELFPAY ==
[2025-06-18 17:36] VITALS: BP 138/93
--- NOTE | 2025-06-18 18:58 | ED.GENMED ---
History of Present Illness
General
Chief Complaint: Weakness
Time Seen by Provider: 06/18/25 18:58
History of Present Illness
History of Present Illness:
FOCUSED PAST MEDICAL HISTORY
- Migraines
REVIEW OF OLD RECORDS
- The patient was seen here 06/01 with abdominal pain, 05/31 with abdominal pain, 05/12 with fatigue,
- She has a history of colitis and C. difficile
-The patient had 4 CBCs since May 12, 2025 which showed normal white count hemoglobin, she also had 4 chemistry tests sent the same date that were unremarkable, hCG negative x 4, she had a normal, D-dimer was negative this past March stool
calprotectin level 4 days ago
-CAT scan of her brain from 03/05/2025 and 08/21/2024 and 05/10/2024 and 01/24/2024 showed no acute abnormality
Note:
CHIEF COMPLAINT(S)
Difficulty walking and tingling sensation.
HISTORY OF PRESENT ILLNESS
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 She presented with complaints of difficulty walking and a deeply felt heaviness in the
legs and arms that began this morning. The patient experiences a tingling sensation and a pulling feeling on the left side of her face, specifically noticeable during speech. Despite no apparent facial droop visually, the sensation persists. She
also reports a unilateral pressure-type headache on the right side, which is concerning due to her history of migraines.
The patient has undergone several imaging studies, including CT scans of the abdomen and brain, with no abnormalities detected, leading to hesitancy in performing another CT scan due to radiation exposure. Neurological examination conducted revealed
normal findings with no indications of a stroke, scoring a zero on the stroke scale.
The patient expressed fear and concern about the potential severity of her symptoms, describing them as 'terrifying,' particularly relating to her ambulatory difficulties. She is currently on Lovenox for her blocked artery and potential clotting
issues.
PAST MEDICAL AND SURIGICAL HISTORY
- History of migraines
- Recent issues with blood clots and a blocked artery in the neck
CHRONIC MEDICAL CONDITIONS SIGNIFICANTLY AFFECTING CARE
- Blocked artery in the neck
- Blood clotting issues managed with Lovenox
MEDICATIONS
- Lovenox
- Gabapentin
- Seroquel
- Zoloft
PHYSICAL EXAM
General: Alert, no acute distress.
Skin: Warm, dry.
Head: Normocephalic, atraumatic.
Neck: Supple, trachea midline.
Eye, Ears, Nose, Mouth, and Throat: Oral mucosa moist.
Cardiovascular: Normal peripheral perfusion, No edema.
Respiratory: Respirations are non-labored.
Gastrointestinal: Abdomen nondistended.
Back: Normal range of motion, Normal alignment.
Musculoskeletal: Normal range of motion, normal strength.
Neurological: Alert and oriented to person, place, time, and situation, No focal neurological deficit observed. Stroke scale 0, excellent strength in all extremities, no facial asymmetry, no dysarthria, no aphasia, normal finger-nose testing, no
field cuts
Psychiatric: Cooperative, appropriate mood & affect.
PLAN
1. Order a CT scan of the brain to assess for any acute changes, considering radiation exposure risks.
2. Perform thyroid function tests to evaluate possible underlying causes of weakness and fatigue.
3. Encourage follow-up with the neurologist for further evaluation and management of symptoms.
4. Monitor and address anxiety, acknowledging it as a potential contributing factor.
5. Discussed the potential risks of further imaging and emphasized the importance of minimizing radiation exposure.
DIFFERENTIAL DIAGNOSIS
The Differential Diagnosis includes, in no particular order and is not limited to:
1. Migraine with neurological manifestations (complex migraine)
2. Transient ischemic attack (TIA)
3. Cervical artery dissection
4. Multiple sclerosis
5. Peripheral neuropathy
6. Anxiety-related somatic symptoms
7. Thyroid dysfunction
8. Drug-induced side effects
9. Vitamin deficiencies (e.g., B12 deficiency)
10. Central nervous system vasculitis
RADIOLOGY
- No bleed, no acute abnormality, radiologist suggests Chiari I malformation
LABS
- TSH normal
UPDATE
-SUMMARY OF ENCOUNTER
The patient presented to the emergency department with concerns of difficulty walking, heaviness in the limbs, tingling on the left side of the face, and a unilateral headache, particularly worried due to a history of migraines and blood clots. The
consultation involved discussing the outcome of a CT scan of the brain and a thyroid function test. The CT scan showed no acute changes, no signs of bleeding, and only mentioned a possible incidental finding of Chiari malformation, often noted by
this radiologist and not significant to this clinical presentation. The thyroid function test showed no issues. The patient expressed concerns about complex migraines, which were confirmed to be a possibility for her symptoms. Management included
advice to follow up with a neurologist for ongoing symptoms and further evaluation. There is no indication for hospital admission at this time.
DISPOSITION
Discharge.
ASSESSMENT
The patients symptoms may be attributed to a complex migraine, which is not uncommon and can sometimes present with neurological sensations. Given the absence of acute findings on imaging and the clinical evaluation, hospitalization is not warranted
at this time.
PLAN
The patient is encouraged to follow up with her neurologist for further evaluation and management of her symptoms. She should continue monitoring her symptoms and seek immediate medical attention if they worsen or new symptoms arise.
INDEPENDENT REVIEW OF LABS AND INTERPRETATION OF TESTS
My independent review of the CT scan indicates no acute changes or signs of bleeding. The mention of a Chiari malformation appears to be an incidental finding with no clinical relevance to the current symptoms. My independent review of thyroid
function tests shows no abnormalities.
MEDICATION RECONCILIATION
The patient is currently on Lovenox. It was noted that she takes medications for migraine prevention, although specific medications were not verified in this encounter.
MEDICAL DECISION MAKING
-Complexity of Data Reviewed: Chronic conditions affecting care include a history of migraines and blood clotting issues. Differential diagnoses considered were complex migraine, transient ischemic attack, and thyroid dysfunction.
-Data:
Category 1
The following testing was considered, but ultimately not selected after discussion: Additional CT or MRI imaging due to radiation exposure concerns, given the patients various symptoms and lack of acute findings on initial CT.
Category 3
Discussion of management with other physician: The patient was advised to follow up with her neurologist for further evaluation and potential treatment adjustments.
-Risk:
Consideration of Admission/Observation: Escalation of care including admission/observation was considered given the complexity and risk of the patients presenting complaint, exam findings, and/or her underlying comorbidities. However, ultimately I
feel the patient is safe for outpatient management with close follow-up. Reasoning: Work-up reassuring, does not reveal any acute life/organ-threatening processes, patients symptoms well controlled upon reevaluation, reexamination is reassuring,
vitals are stable, patient agreeable with discharge, reliable for follow-up.
DIAGNOSIS
Complex migraine with neurological manifestations (G43.2).
Past History
Past History
ED Past Medical History: Psychiatric (Anxiety, Depression) and Other ( IBS, ovarian cyst, colitis, DVT/PE, C-diff, PCOS, POTS, Migraines, )
ED Past Surgical History: Gynecological (Hymenectomy ) and Orthopedic (Left knee meniscus and MPFO)
Social History
Tobacco: Non-smoker
Alcohol: None
Drug: None
Personal: Single
Living: with roommate
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
Family History
Family History: Other
Phy Exam
Physical Exam
Physical Exam:
See HPI
Course
Orders/Labs/Results
Orders:
Orders
06/18/25 19:12
CT Head W/o Iv Contrast Urgent
Comment:
Reason For Exam: R SUN, L facial weak, 'can't walk' on lovenox;
06/18/25 19:35
TSH Reflex To Free T4 Urgent
Vital Signs
Initial and Last Documented VS:
Initial Vital Signs
Temp Pulse Resp BP Pulse Ox
36.8 C 99 18 138/93 99
06/18/25 17:36 06/18/25 17:36 06/18/25 17:36 06/18/25 17:36 06/18/25 17:36
Last Documented Vital Signs
Temp Pulse Resp BP Pulse Ox
36.8 C 102 20 126/82 99
06/18/25 17:36 06/18/25 19:37 06/18/25 19:37 06/18/25 19:37 06/18/25 19:38
*Pulse Oximetry
SaO2: 99
Oxygen Mode of Delivery: Room air
Patient hypoxic: no
*Critical Care Note
Total Time (30-74mins, 75-104mins- exclusive of procedures): Not Applicable
ED Attending Note
-
Portions of this chart may have been created with voice recognition software.� Occasional wrong word or��sound alike� substitutions may have occurred due to the inherent limitations of voice recognition software.
Discharge Plan
Departure
Prescriptions:
No Action
polyethylene glycol 3350 [Miralax] 17 gram Powder In Packet
17 g PO DAILYPRN PRN (Reason: constipation)
acetaminophen 500 mg Tablet
1,000 mg PO DAILYPRN PRN (Reason: mild pain)
pravastatin 10 mg tablet
10 mg PO DAILY
Patient Comments:
hasn't taken this 'in weeks', just because she doesn't feel like taking it
sertraline 25 mg tablet
25 mg PO DAILY
Rx Instructions:
take with 50mg for total of 75mg daily
gabapentin 100 mg capsule
100 mg PO HS
metoprolol succinate 25 mg tablet extended release 24 hr
25 mg PO DAILY
sertraline 50 mg tablet
50 mg PO DAILY
Rx Instructions:
take with 25mg for 75mg total daily
simethicone [Gas-X] 80 mg Tablet,Chewable
80 mg PO DAILYPRN PRN (Reason: gas)
enoxaparin 120 mg/0.8 mL syringe
120 mg SC DAILY
dicyclomine 10 mg capsule
10 mg PO TID Qty: 30 0RF
ondansetron 4 mg tablet,disintegrating
4 mg PO TIDPRN PRN (Reason: nausea/vomiting) Qty: 10 0RF
Referrals:
Jennifer Jackson MD [Family Provider, Family Practice]
Interventions
Interventions:
*Risk Screen - Suicide Last Done: 06/18/25 17:36
*General Assessment Last Done: 06/18/25 17:36
*ED COVID-19 Vaccine History Last Done: 06/18/25 17:36
*ED Influenza Vaccine History Last Done: 06/18/25 17:36
ED- Cardiac Assessment Last Done: 06/18/25 19:38
ED- Neurological Assessment Last Done: 06/18/25 19:38
ED- Pulmonary Assessment Last Done: 06/18/25 19:38
Discharge Date and Time
Print Language: TELUGU
[2025-06-18 19:37] VITALS: BP 126/82; BMI 32.3
[2025-06-18 21:40] VITALS: BP 118/74
== END 2025-06-18 21:42 | disposition home or self-care (01) ==
LOC: EMR 17:29
PROVIDERS: EMERGENCY PHYSICIAN Emergency Medicine; FAMILY PHYSICIAN Family Medicine
DX: G43.909 Migraine, unspecified, not intractable, without status migrainosus (principal); R53.1 Weakness; R26.2 Difficulty in walking, not elsewhere classified; R20.2 Paresthesia of skin; G93.5 Compression of brain; Z86.718 Personal history of other venous thrombosis and embolism; Z79.01 Long term (current) use of anticoagulants
CPT/HCPCS: 99284; 70450; 81003; 81015; 84443; 87086

== ENCOUNTER 2025-06-30 03:49 | Emergency (ER) | payer BC, SELFPAY ==
[2025-06-30] VITALS (7 sets, daily range): BP systolic 108–123; BP diastolic 65–87; BMI 32.3
--- NOTE | 2025-06-30 04:27 | ED.GENMED ---
History of Present Illness
<Milla Preston PA-C - Last Filed: 07/01/25 04:31>
General
Chief Complaint: Vaginal Bleeding
Source: patient
Exam Limitations: none
Time Seen by Provider: 06/30/25 04:18
Nursing documentation reviewed up to this point in time: agreed with
History of Present Illness
History of Present Illness:
Note:
CHIEF COMPLAINT(S)
Heavy menstrual bleeding and lightheadedness.
HISTORY OF PRESENT ILLNESS
The patient is a 24-year-old female with a history of polycystic ovary syndrome (PCOS) and recurrent deep vein thrombosis (DVT), currently on anticoagulation therapy with lovenox, anxiety, POTs. She presents with concerns of heavy menstrual
bleeding, which began shortly after starting her last menstrual period. She started her period on Monday. The bleeding is significantly heavier than her normal menstrual flow, requiring changing of hourly high-absorbency pads. The patient reports
associated symptoms of lightheadedness and a sensation of rapid heart rate since the onset of the bleeding. She mentions feeling dizzy and was noted to be tachycardic, although she is unclear if these symptoms persist. She denies any significant
pelvic pain but notes minor cramping. She has no urinary symptoms such as burning or frequency.
The patient reports a history of DVTs, initially occurring between December and May of the previous year, with no identified precipitating factors, which led to long-term anticoagulation therapy. She also has a history of migrainous episodes that
mimic transient ischemic attacks (TIAs), observed during her hospital admission, but has had no new neurological symptoms since that event. Other health concerns, such as fibroids or ovarian cysts, were discussed as potential contributors to her
heavy menstrual bleeding, and an ultrasound is planned to confirm or rule out these conditions.
PAST MEDICAL AND SURGICAL HISTORY
- Polycystic Ovary Syndrome (PCOS)
- Recurrent Deep Vein Thrombosis (DVT)
CHRONIC MEDICAL CONDITIONS SIGNIFICANTLY AFFECTING CARE
- Polycystic Ovary Syndrome
- History of Deep Vein Thrombosis on lifelong lovenox
SOCIAL HISTORY
The patient is on lifelong anticoagulation therapy with Lovenox due to recurrent DVTs.
MEDICATIONS
Lovenox (for DVT management)
REVIEW OF SYSTEMS
- Cardiovascular: Lightheadedness and sensation of rapid heart rate.
- Gynecological: Heavy menstrual bleeding, increased pad use.
- Neurological: Historical migraine resembling transient ischemic attacks; no new neurological symptoms.
PHYSICAL EXAM
General: Alert, no acute distress.
Skin: Warm, dry.
Head: Normocephalic, atraumatic.
Neck: Supple, trachea midline.
Eye, Ears, Nose, Mouth, and Throat: Oral mucosa moist.
Cardiovascular: Regular rate and rhythm, no murmurs. Normal peripheral perfusion, no edema.
Respiratory: Respirations are non-labored.
Gastrointestinal: Abdomen non-distended. No abdominal tenderness to palpation.
Back: Normal range of motion, normal alignment.
Musculoskeletal: Normal range of motion, normal strength.
Neurological: Alert and oriented to person, place, time, and situation, no focal neurological deficit observed.
Psychiatric: Cooperative, appropriate mood and affect.
PROBLEM LIST
Acute:
- Heavy menstrual bleeding
- Lightheadedness and dizziness
Chronic:
- Polycystic Ovary Syndrome
- History of Deep Vein Thrombosis on lifelong anticoagulation
PLAN
- Administer intravenous fluids to address lightheadedness and support circulatory volume due to heavy menstrual bleeding.
- Repeat pelvic ultrasound to evaluate for potential fibroids or other causes of abnormal uterine bleeding.
- Monitor cardiovascular status closely due to symptoms of lightheadedness and tachycardia.
DIFFERENTIAL DIAGNOSIS
The Differential Diagnosis includes, in no particular order and is not limited to:
1. Uterine Fibroids
2. Hemorrhagic Ovarian Cyst
3. Anticoagulation-related bleeding
4. Endometrial Hyperplasia
5. Dysfunctional Uterine Bleeding
6. Endometriosis
7. Hypothyroidism
8. Coagulation Disorder
9. Cervical or Endometrial Polyp
10. Hormonal Imbalance related to PCOS
CHART REVIEW
Reviewed ER physician documentation of 06/18/2025 patient seen for migraine attack
Reviewed ER physician documentation from 06/01/2025 patient seen for abdominal pain
MDM/DISPOSITION
25-year-old female presents emergency today with concerns of heavy vaginal bleeding during her period. She is particularly concerned because she is on Lovenox. She has no associated abdominal pain. No associated burning with urination or UTI
symptoms. Visible exam she is well-appearing no acute distress. Mildly tachycardic otherwise vital stable. Her hemoglobin is normal. No indication for blood transfusion or Lovenox reversal. Will send for ultrasound of the pelvis. Case signed
out to Gricelda NEAL pending ultrasound results.
Past History
<Milla Preston PA-C - Last Filed: 07/01/25 04:31>
Past History
ED Past Medical History: Psychiatric (Anxiety, Depression) and Other ( IBS, ovarian cyst, colitis, DVT/PE, C-diff, PCOS, POTS, Migraines, )
ED Past Surgical History: Gynecological (Hymenectomy ) and Orthopedic (Left knee meniscus and MPFO)
Social History
Tobacco: Non-smoker
Alcohol: None
Drug: None
Personal: Single
Living: with roommate
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
Family History
Family History: Other
Phy Exam
<Gricelda Davis PA-C - Last Filed: 06/30/25 08:23>
Physical Exam
Physical Exam:
.
Course
<Milla Preston PA-C - Last Filed: 07/01/25 04:31>
Orders/Labs/Results
Orders:
Orders
06/30/25 04:35
Test Result ONCE
06/30/25 04:43
Complete Blood Count/With Diff Urgent
Comprehensive Metabolic Panel Urgent
HCG, Serum Qualitative Screen Urgent
06/30/25 04:59
0.9% Sodium Chloride 1000 ml [Nss] 1,000 ml IV BOLUS
Test Result ONCE
06/30/25 05:00
US Pelvis W Transvag Combined Urgent
Comment:
Reason For Exam: heavy bleeding
06/30/25 05:07
Type+Screen Urgent
Abnormal Lab Results
06/30/25
04:43
MCHC 32.8 L g/dL
(33.0-37.0)
Glucose 105 H mg/dl
(70-99)
06/30/25 04:43
06/30/25 04:43
Vital Signs
Initial and Last Documented VS:
Initial Vital Signs
Temp Pulse Resp Pulse Ox
97.7 F 112 22 100
06/30/25 04:09 06/30/25 04:09 06/30/25 04:09 06/30/25 04:09
Last Documented Vital Signs
Temp Pulse Resp BP Pulse Ox
97.7 F 78 16 120/70 98
06/30/25 04:09 06/30/25 07:28 06/30/25 07:28 06/30/25 08:00 06/30/25 06:00
Víctorlt;Gricelda Davis PA-C - Last Filed: 06/30/25 08:23>
Orders/Labs/Results
Orders:
Orders
06/30/25 04:35
Test Result ONCE
06/30/25 04:43
Complete Blood Count/With Diff Urgent
Comprehensive Metabolic Panel Urgent
HCG, Serum Qualitative Screen Urgent
06/30/25 04:59
0.9% Sodium Chloride 1000 ml [Nss] 1,000 ml IV BOLUS
Test Result ONCE
06/30/25 05:00
US Pelvis W Transvag Combined Urgent
Comment:
Reason For Exam: heavy bleeding
06/30/25 05:07
Type+Screen Urgent
Abnormal Lab Results
06/30/25
04:43
MCHC 32.8 L g/dL
(33.0-37.0)
Glucose 105 H mg/dl
(70-99)
06/30/25 04:43
06/30/25 04:43
Vital Signs
Initial and Last Documented VS:
Initial Vital Signs
Temp Pulse Resp Pulse Ox
97.7 F 112 22 100
06/30/25 04:09 06/30/25 04:09 06/30/25 04:09 06/30/25 04:09
Last Documented Vital Signs
Temp Pulse Resp BP Pulse Ox
97.7 F 78 16 120/70 98
06/30/25 04:09 06/30/25 07:28 06/30/25 07:28 06/30/25 08:00 06/30/25 06:00
<Milla Preston PA-C - Last Filed: 07/01/25 04:31>
*Pulse Oximetry
SaO2: 100
Oxygen Mode of Delivery: Room air
<Gricelda Davis PA-C - Last Filed: 06/30/25 08:23>
*Pulse Oximetry
Patient hypoxic: no
*Critical Care Note
Total Time (30-74mins, 75-104mins- exclusive of procedures): Not Applicable
<Gricelda Davis PA-C - Last Filed: 06/30/25 08:23>
Update Note
Update Note:
I assumed care of patient awaiting pelvic ultrasound results. Ultrasound shows a simple left ovarian cyst but is otherwise unremarkable. Endometrial stripe is within normal limits. Patient is currently on her second pad since arriving to the ED
and has been here for over 4 hours. Vital signs stable. She is stable for discharge with outpatient follow-up with gynecology. ED return precautions reviewed.
ED Attending Note
<Milla Preston PA-C - Last Filed: 07/01/25 04:31>
-
Portions of this chart may have been created with voice recognition software.� Occasional wrong word or��sound alike� substitutions may have occurred due to the inherent limitations of voice recognition software.
Discharge Plan
Departure
Patient Disposition: Home (Routine Discharge)
Date of Disposition: 06/30/25
Time of Disposition: 08:15
Patient with high blood pressure during this ER visit?: Yes
Condition: Good
Discharge Problem:
Menorrhagia
Instructions: Heavy Periods (DC)
Prescriptions:
No Action
polyethylene glycol 3350 [Miralax] 17 gram Powder In Packet
17 g PO DAILYPRN PRN (Reason: constipation)
acetaminophen 500 mg Tablet
1,000 mg PO DAILYPRN PRN (Reason: mild pain)
pravastatin 10 mg tablet
10 mg PO DAILY
Patient Comments:
hasn't taken this 'in weeks', just because she doesn't feel like taking it
sertraline 25 mg tablet
25 mg PO DAILY
Rx Instructions:
take with 50mg for total of 75mg daily
gabapentin 100 mg capsule
100 mg PO HS
metoprolol succinate 25 mg tablet extended release 24 hr
25 mg PO DAILY
sertraline 50 mg tablet
50 mg PO DAILY
Rx Instructions:
take with 25mg for 75mg total daily
simethicone [Gas-X] 80 mg Tablet,Chewable
80 mg PO DAILYPRN PRN (Reason: gas)
enoxaparin 120 mg/0.8 mL syringe
120 mg SC DAILY
dicyclomine 10 mg capsule
10 mg PO TID Qty: 30 0RF
ondansetron 4 mg tablet,disintegrating
4 mg PO TIDPRN PRN (Reason: nausea/vomiting) Qty: 10 0RF
Referrals:
Gerstein,Radha P., MD [Active, Gynecology] - Call in 1-3 days for appt
Jennifer Jackson MD [Family Provider, Family Practice]
Stand Alone Forms: Return to Work
Activity Restrictions/Additional Instructions:
Your hemoglobin is normal. Please continue to monitor your symptoms. Please continue to take your Lovenox. Please call your [facility] to schedule follow-up appointment.
PLEASE RETURN TO THE ER SHOULD YOU DEVELOP FAINTING SPELLS, CHEST PAIN, SHORTNESS OF BREATH
Interventions
Interventions:
*Risk Screen - Suicide Last Done: 06/30/25 04:09
*General Assessment Last Done: 06/30/25 04:09
*Neglect/Abuse Screening Last Done: 06/30/25 04:09
*ED- Fall Risk Assessment Last Done: 06/30/25 04:36
*ED COVID-19 Vaccine History Last Done: 06/30/25 04:36
*ED Influenza Vaccine History Last Done: 06/30/25 04:36
*Nursing Disposition Last Done: 06/30/25 08:38
ED-Female Genitourinary Assessment Last Done: 06/30/25 07:28
Discharge Date and Time
Discharge Date/Time: 06/30/25 08:39
Print Language: TURKMEN
[2025-06-30 04:59] LABS: Hematocrit 41.1 % (37.0-47.0); Hemoglobin 13.5 g/dL (12.0-16.0); Mean Corp Hgb Conc. 32.8 g/dL (33.0-37.0); Mean Corpuscular Volume 89.9 fL (81.0-99.0); Nucleated Red Blood Cells % 0 %; Platelet Count 321 10^3/uL (130-400); Red Cell Dist. Width 13.0 % (11.5-14.5)
[2025-06-30 05:06] LABS: HCG, Serum Qualitative Screen Negative
[2025-06-30] MEDS: NSS 1000 IV (05:07)
[2025-06-30 05:11] LABS: ALT (SGPT) 22 U/L (0-35); AST (SGOT) 17 U/L (14-36); Albumin 4.7 g/dl (3.5-5.0); Alkaline Phosphatase 54 U/L (38-126); Blood Urea Nitrogen 15 mg/dl (7-17); Calcium 9.3 mg/dl (8.4-10.2); Carbon Dioxide 22 mmol/L (22-30); Chloride 107 mmol/L (98-107); Glucose 105 mg/dl (70-99); Potassium 3.7 mmol/L (3.5-5.1); Sodium 139 mmol/L (135-145); Total Protein 7.8 g/dl (6.3-8.2); eGFR > 60.00
== END 2025-06-30 08:39 | disposition home or self-care (01) ==
LOC: EMR 03:49
PROVIDERS: Physician Assistant; EMERGENCY PHYSICIAN Emergency Medicine; FAMILY PHYSICIAN Family Medicine
DX: N92.0 Excessive and frequent menstruation with regular cycle (principal); E28.2 Polycystic ovarian syndrome; G90.A Postural orthostatic tachycardia syndrome [POTS]; K58.9 Irritable bowel syndrome, unspecified; Z79.01 Long term (current) use of anticoagulants; Z86.718 Personal history of other venous thrombosis and embolism; Z86.73 Personal history of transient ischemic attack (TIA), and cerebral infarction without residual deficits
CPT/HCPCS: 99284; 96360; 76830; 76856; 80053; 84703; 85025; 86850; 86900; 86901

== ENCOUNTER → 2025-07-25 12:55 | Outpatient (REF) | payer BC, SELFPAY | LOC: RCS 12:55 | PROVIDERS: ATTENDING PHYSICIAN Nurse Practitioner | DX: E78.00 Pure hypercholesterolemia, unspecified (principal); G90.A Postural orthostatic tachycardia syndrome [POTS]; G43.909 Migraine, unspecified, not intractable, without status migrainosus | CPT/HCPCS: 93306 ==

== ENCOUNTER 2025-08-09 13:05 | Emergency (ER) | payer BC, SELFPAY ==
[2025-08-09 13:08] VITALS: BP 171/114
--- NOTE | 2025-08-09 13:16 | ED.GENMED ---
History of Present Illness
General
Chief Complaint: Musculo-Skeletal Complaint
Source: patient
Exam Limitations: none
Time Seen by Provider: 08/09/25 13:15
Nursing documentation reviewed up to this point in time: agreed with
History of Present Illness
History of Present Illness:
Patient is a 25-year-old female past medical history of PCOS recurrent DVT on anticoagulation anxiety, functional neurological disorder presents to the ER for evaluation. Patient reports starting August 06 she noted that her left arm felt a
little heavy and since then has developed left upper trapezius discomfort and left lateral neck discomfort. She denies any injury. She has been taking Tylenol. She does have soreness in her neck when she turns her head to the right. She denies
any numbness tingling. Denies any chest pain shortness of breath. Denies any trauma or headache. Denies any numbness tingling.
Past History
Past History
ED Past Medical History: Psychiatric (Anxiety, Depression) and Other ( IBS, ovarian cyst, colitis, DVT/PE, C-diff, PCOS, POTS, Migraines, )
ED Past Surgical History: Gynecological (Hymenectomy ) and Orthopedic (Left knee meniscus and MPFO)
Social History
Tobacco: Non-smoker
Alcohol: None
Drug: None
Personal: Single
Living: with roommate
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
Family History
Family History: Other
Phy Exam
General Physical Exam
General Presentation: no apparent distress
General age: appears stated age
General Skin: warm and dry
General Habitus: normal
General Mental: alert
General Hydration: appears well hydrated
Cardiovascular Exam
Cardiovascular Exam: regular rate/rhythm, no murmur and normal peripheral pulses
Pulmonary Exam
Pulmonary Exam: lungs clear and no respiratory distress
Neurological Exam
Neurological Exam: alert and oriented x3
Musculoskeletal Exam
Musculoskeletal Exam: full ROM and other (Point tender to left lateral paracervical muscle as well as left upper upper trapezius)
Skin Exam
Skin Exam: normal color and warm/dry
Psychiatric Exam
Psychiatric Exam: normal mood/affect
Course
Orders/Labs/Results
Orders:
Orders
08/09/25 13:38
Prednisone [Deltasone] 40 mg PO NOW STA
08/09/25 13:40
Vital Signs- Treatment ONCE
Frequency: Once
Vital Signs
Initial and Last Documented VS:
Initial Vital Signs
Temp Pulse Resp Pulse Ox
98.1 F 97 19 100
08/09/25 13:05 08/09/25 13:05 08/09/25 13:05 08/09/25 13:05
Last Documented Vital Signs
Temp Pulse Resp BP Pulse Ox
98.1 F 85 16 132/80 97
08/09/25 13:05 08/09/25 14:00 08/09/25 14:00 08/09/25 14:00 08/09/25 14:00
MDM/Problems Addressed
Differential Diagnosis Includes:
Not limited to muscle sprain strain muscle spasm, radiculopathy
MDM/Problems Addressed:
Patient is well-appearing.
Patient symptoms are consistent with likely radiculopathy, muscle spasm. Patient has tenderness of the left Cervical muscle as well as the upper trapezius. She describes a heavy sensation in her left arm however on exam patient has no neurological
deficits. she has normal strength, normal sensation. She is tender again as documented over the left neck and left upper trapezius. No acute concerning symptoms no associated headache chest pain or shortness of breath. She is very anxious as she
has had a diagnosis of a PE and is on anticoagulation, Lovenox. She is well-appearing case with ED physician stable for discharge home with prednisone. She would like to hold off on muscle relaxer which is reasonable discussed Tylenol and
prednisone with close outpatient follow-up.
*Pulse Oximetry
SaO2: 100
Oxygen Mode of Delivery: Room air
Patient hypoxic: no
*Critical Care Note
Total Time (30-74mins, 75-104mins- exclusive of procedures): Not Applicable
ED Attending Note
-
Portions of this chart may have been created with voice recognition software.� Occasional wrong word or��sound alike� substitutions may have occurred due to the inherent limitations of voice recognition software.
Discharge Plan
Departure
Patient Disposition: Home (Routine Discharge)
Date of Disposition: 08/09/25
Time of Disposition: 14:06
Patient with high blood pressure during this ER visit?: Yes
Condition: Fair
Covid-19: Not Applicable
Discharge Problem:
Cervical radiculopathy, Muscle spasm
Instructions: Radiculopathy of the neck and back (including sciatica) (DC), Muscle spasm - ED (DC), BLOOD PRESSURE
Prescriptions:
New
prednisone 20 mg tablet
40 mg PO DAILY Qty: 10 0RF
No Action
polyethylene glycol 3350 [Miralax] 17 gram Powder In Packet
17 g PO DAILYPRN PRN (Reason: constipation)
acetaminophen 500 mg Tablet
1,000 mg PO DAILYPRN PRN (Reason: mild pain)
pravastatin 10 mg tablet
10 mg PO DAILY
Patient Comments:
hasn't taken this 'in weeks', just because she doesn't feel like taking it
sertraline 25 mg tablet
25 mg PO DAILY
Rx Instructions:
take with 50mg for total of 75mg daily
gabapentin 100 mg capsule
100 mg PO HS
metoprolol succinate 25 mg tablet extended release 24 hr
25 mg PO DAILY
sertraline 50 mg tablet
50 mg PO DAILY
Rx Instructions:
take with 25mg for 75mg total daily
simethicone [Gas-X] 80 mg Tablet,Chewable
80 mg PO DAILYPRN PRN (Reason: gas)
enoxaparin 120 mg/0.8 mL syringe
120 mg SC DAILY
dicyclomine 10 mg capsule
10 mg PO TID Qty: 30 0RF
ondansetron 4 mg tablet,disintegrating
4 mg PO TIDPRN PRN (Reason: nausea/vomiting) Qty: 10 0RF
Activity Restrictions/Additional Instructions:
As discussed a prescription for prednisone was sent to your pharmacy .
take as directed for the next 5 days.
Please closely follow-up with your family doctor in the next several days and return if any worsening of symptoms
Interventions
Interventions:
*General Assessment Last Done: 08/09/25 13:07
*Neglect/Abuse Screening Last Done: 08/09/25 13:07
*ED COVID-19 Vaccine History Last Done: 08/09/25 13:07
*ED Influenza Vaccine History Last Done: 08/09/25 13:07
*Risk Screen - Suicide (C-SSRS) Last Done: 08/09/25 13:07
*Nursing Disposition Last Done: 08/09/25 14:29
Discharge Date and Time
Discharge Date/Time: 08/09/25 14:29
Print Language: GEORGIAN
[2025-08-09 14:00] VITALS: BP 132/80
[2025-08-09] MEDS: DELTASONE 40 MG PO (14:01)
== END 2025-08-09 14:29 | disposition home or self-care (01) ==
LOC: EMR 13:05
PROVIDERS: EMERGENCY PHYSICIAN Emergency Medicine; FAMILY PHYSICIAN Family Medicine
DX: M54.12 Radiculopathy, cervical region (principal); M62.838 Other muscle spasm; E28.2 Polycystic ovarian syndrome; Z86.718 Personal history of other venous thrombosis and embolism; Z79.01 Long term (current) use of anticoagulants
CPT/HCPCS: 99283